=== PATIENT | female | born 1990 | race Caucasian/White ===

== ENCOUNTER 2016-03-24 11:43 | Outpatient (RCR) | payer OTHER ==
[2016-06-09] MEDS ORDERED: PNV91TAB3 PO (09:38)
[2016-06-15] MEDS ORDERED: IBUP-1773 PO (07:40)
[2016-06-15] MEDS ORDERED: HYDR-3729 PO (07:40)
== END 2016-06-22 | disposition home or self-care (01) ==
LOC: LAB 11:43 → EDSTATUS 12:02
PROVIDERS: ATTEND Nurse Practitioner Family
DX: O20.9 Hemorrhage in early pregnancy, unspecified (principal); Z3A.01 Less than 8 weeks gestation of pregnancy
CPT/HCPCS: 36415; 84702

== ENCOUNTER → 2016-05-24 | Outpatient (CLI) | payer OTHER ==
[~2016-05-24] MED LIST: HYDR-3729 PO; IBUP-1773 PO; PNV91TAB3 PO
--- NOTE | 2016-05-24 12:00 | Diagnostic Imaging Report ---
EXAMINATION: OB ultrasound. INDICATION: Threatened . FINDINGS: There is an intrauterine with a gestational sac and yolk sac seen. The mean sac diameter is 21 mm which corresponds to 7 weeks and one day. There is question of a tiny embryo measuring less than 2 mm. No cardiac activity is detected. IMPRESSION: There is a single intrauterine with question of a tiny embryo seen but without cardiac activity. Differential considerations are early normal or embryo demise. Correlate with serial beta-hCG and ultrasound followup in 5-7 days. Report was faxed to office of Dr. Herrera by charlie at 12:00 p.m. Dictated by: Dictated on workstation # [id number]
== END ==
LOC: RAD 09:50
PROVIDERS: ATTEND Obstetrics & Gynecology
DX: O20.0 Threatened abortion (principal)
CPT/HCPCS: 76817

== ENCOUNTER → 2016-05-30 | Outpatient (CLI) | payer OTHER ==
--- NOTE | 2016-05-30 12:59 | Diagnostic Imaging Report ---
INDICATION: Followup pelvic pain, threatened . COMPARISON: 05/24/2016. DISCUSSION: Transvaginal sonographic evaluation of the pelvis was performed. The uterus is normal in echotexture and size. Single intrauterine gestational sac is again visualized. pole appears to be present but no heart activity identified. Mean sac diameter measures 1.99 cm. [place]-rump length measures 0.29 cm which correlates with a gestational age of 6 weeks 0 days by sonographic measurements. Small yolk sac is present. There has not been expected interval growth as compared to prior exam. Findings are suggestive of though not diagnostic for failed . Recommend continued clinical correlation and sonographic followup is indicated. No abnormal adnexal mass or fluid is identified. IMPRESSION: 1. Single intrauterine is again demonstrated. There is a small pole identified, however there is no heart activity present on today's exam. There is a lack of expected interval growth. By standard criteria, findings are suggestive of though not definitive for demise. Recommend continued clinical correlation. Dictated by: Dictated on workstation # [id number]
== END ==
LOC: RAD 11:05
PROVIDERS: ATTEND Obstetrics & Gynecology
DX: O20.0 Threatened abortion (principal)
CPT/HCPCS: 76817

== ENCOUNTER 2016-06-09 09:08 | Outpatient (CLI) | payer OTHER ==
[~2016-06-09] VITALS: Ht 175.3 cm; Wt 120.7 kg
--- OUTSIDE RECORDS SUMMARY | 2016-06-09 09:12 | XMS REPORT ---
Author Author CRISTINAA MCLEOD Organization [facility] Address [address] [place] [address] Care Team Providers Care Hand Inserter Operator Name Role Phone CRISTIANA MCLEOD Unavailable PROBLEMS Type Condition ICD9-CM Code AXH94-OH Code Onset Dates Condition Status SNOMED Code Problem Family history of malignant neoplasm of endometrium Z80.49 Active 415199072885704 Problem Obesity (BMI 35.0-39.9 without comorbidity) E66.01 Active 542137092 Problem Family history of ovarian cancer Z80.41 Active 792209566 Assessment Dental examination Z01.20 Feb, Active 038300661 Problem Family history of heart disease Z82.49 Active 782267269 Problem Family history of hyperlipidemia Z83.49 Active 745495891 Problem Desire for Z31.9 Active 914520338 Problem Anxiety F41.9 Active 05667368 Problem General medical exam Z00.00 Active 476158477 Problem Hirsutism L68.0 Active 154176175 Problem Seasonal allergic rhinitis, unspecified allergic rhinitis trigger J30.2 Active 752897898 Problem Overweight E66.3 Active 565759797 ALLERGIES Substance Reaction Event Type Date Status N.K.D.A. Unknown Non Drug Allergy Feb, Unknown SOCIAL HISTORY No smoking Hx information available PLAN OF CARE VITAL SIGNS Height 70 in 2016-02-26 Heart Rate 80 bpm 2016-02-26 Blood pressure systolic 129 mmHg 2016-02-26 Blood pressure diastolic 85 mmHg 2016-02-26 MEDICATIONS Medication Instructions Dosage Frequency Start Date End Date Duration Status Folic Acid Active Zyrtec Allergy 10 MG Orally Once a day 1 tablet 24h Active Flonase 50 MCG/DOSE Nasally Once a day 1 spray in each nostril 24h Oct, 30 day(s) Active Vitamin D (Ergocalciferol) 47674 UNIT Orally one time weekly 1 capsule Jan, 12 weeks Active Active BusPIRone HCl 10 MG Orally Twice a day 1 tablet 12h Nov, Active RESULTS No Results PROCEDURES Procedure Date Ordered Related Diagnosis Body Site BITEWINGS - FOUR FILMS Feb 26, 2016 PANORAMIC FILM SEE ALSO CODE 25376 Feb 26, 2016 Billing Notes on claim Feb 26, 2016 PROPHYLAXIS - ADULT Feb 26, 2016 [employer] Employee/Board adjustment Feb 26, 2016 IMMUNIZATIONS No Known Immunizations
[2016-06-09] MEDS ORDERED: PNV91TAB3 PO (09:38)
== END 2016-06-09 09:41 ==
LOC: PREOP 09:08
PROVIDERS: ATTEND Obstetrics & Gynecology
DX: Z01.818 Encounter for other preprocedural examination (principal); O02.1 Missed abortion

== ENCOUNTER 2016-06-14 22:51 | Day surgery (SDC) | payer OTHER ==
[~2016-06-14] VITALS: Ht 175.3 cm; Wt 120.7 kg
[~2016-06-14 22:51] MED LIST changes: -HYDR-3729 PO; -IBUP-1773 PO
[2016-06-14] MEDS ORDERED: NS IV 1000 ML 1,000 ML IV ONE (22:52)
--- NOTE | 2016-06-14 23:08 | ED GU-Female ---
General Chief Complaint: -Female Stated Complaint: MISCARRIAGE/HEAVY BLEEDING/LIGHT HEADED Nursing Triage Note: pt reports she began miscarrying on monday. she is scheduled for a d&c billy, but began having increased bleeding tonight with near syncope. Nursing Sepsis Screen: No Definite Risk Source: patient, old records Exam Limitations: no limitations History of Present Illness Time seen by provider: 22:55 Initial Comments This 25-year-old 2 para 0 presents to the emergency room with cramping and severe bleeding. She had an ultrasound performed earlier today demonstrating no viable with complex endometrial contents. She is scheduled for a D&C with Dr. Herrera tomorrow. While in the shower shortly before arrival she developed a constant stream of vaginal bleeding. She became weak, lightheaded, and "he saw spots". The heavy bleeding started around 22: 00. Symptoms of miscarriage started about 4 days ago. She is mildly tachycardic on presentation. Allergies and Home Medications Allergies Coded Allergies: No Known Drug Allergies (Unverified , 06/09/16) Home Medications Pnv95/Ferrous Fumarate/FA 1 Each Tablet, 1 EACH PO DAILY, (Reported) Constitutional: see HPI EENTM: no symptoms reported Respiratory: no symptoms reported Cardiovascular: see HPI Gastrointestinal: nausea Genitourinary: see HPI : Yes Musculoskeletal: no symptoms reported Skin: no symptoms reported Psychiatric/Neurological: No Symptoms Reported Endocrine: No Symptoms Reported Hematologic/Lymphatic: See HPI Past Eorxxjr-Thzkiy-Vyxdhd Hx Patient Social History Recent Foreign Travel: No Contact w/Someone Who Travel: No Recent Infectious Disease Expo: No Recent Hopitalizations: No Immunizations Up To Date Date of Influenza Vaccine: Jan 10, 2016 Seasonal Allergies Seasonal Allergies: No Surgeries HX Surgeries: No Respiratory Hx Respiratory Disorders: No Cardiovascular Hx Cardiac Disorders: No Neurological Hx Neurological Disorders: No Reproductive System : Yes Hx : 2 Hx Para: 0 Genitourinary Hx Genitourinary Disorders: No Gastrointestinal Hx Gastrointestinal Disorders: No Musculoskeletal Hx Musculoskeletal Disorders: No Endocrine Hx Endocrine Disorders: No HEENT HX ENT Disorders: No Cancer Hx Cancer: No Psychosocial Hx Psychiatric Problems: No Integumentary HX Skin/Integumentary Disorder: No Blood Transfusions Hx Blood Disorders: No Physical Exam Vital Signs Vital Sign - Last 12Hours 06/14/16 23:00 Temp 95.2 Pulse 105 Resp 24 B/P (MAP) 109/89 Capillary Refill : Less Than 3 Seconds General Appearance: WD/WN, no apparent distress HEENT: PERRL/EOMI, normal ENT inspection Cardiovascular: no edema, no murmur, tachycardia Respiratory: lungs clear, normal breath sounds, no respiratory distress, no accessory muscle use Gastrointestinal: normal bowel sounds, non tender, soft Extremities: normal inspection, no pedal edema Neurologic/Psychiatric: donor services manager II-XII nml as tested, no motor/sensory deficits, alert, normal mood/affect, oriented x 3 Skin: normal color, warm/dry Focused Exam Lactic Acid Level Progress/Results/Core Measures Results/Orders Lab Results Laboratory Tests Test 06/14/16 23:00 Range/Units White Blood Count 6.7 4.3-11.0 10^3/uL Red Blood Count 4.14 L 4.35-5.85 10^6/uL Hemoglobin 11.2 L 11.5-16.0 G/DL Hematocrit 32 L 35-52 % Mean Corpuscular Volume 78 L 80-99 FL Mean Corpuscular Hemoglobin 27 25-34 PG Mean Corpuscular Hemoglobin Concent 35 32-36 G/DL Red Cell Distribution Width 13.3 10.0-14.5 % Platelet Count 231 130-400 10^3/uL Mean Platelet Volume 9.9 7.4-10.4 FL Neutrophils (%) (Auto) 50 42-75 % Lymphocytes (%) (Auto) 42 12-44 % Monocytes (%) (Auto) 6 0-12 % Eosinophils (%) (Auto) 2 0-10 % Basophils (%) (Auto) 0 0-10 % Neutrophils # (Auto) 3.4 1.8-7.8 X 10^3 Lymphocytes # (Auto) 2.8 1.0-4.0 X 10^3 Monocytes # (Auto) 0.4 0.0-1.0 X 10^3 Eosinophils # (Auto) 0.1 0.0-0.3 10^3/uL Basophils # (Auto) 0.0 0.0-0.1 10^3/uL Prothrombin Time 14.0 12.2-14.7 SEC INR Comment 1.1 0.8-1.4 Activated Partial Thromboplast Time 25 24-35 SEC Sodium Level 138 135-145 MMOL/L Potassium Level 3.3 L 3.6-5.0 MMOL/L Chloride Level 107 98-107 MMOL/L Carbon Dioxide Level 20 L 21-32 MMOL/L Anion Gap 11 5-14 MMOL/L Blood Urea Nitrogen 6 L 7-18 MG/DL Creatinine 0.72 0.60-1.30 MG/DL Estimat Glomerular Filtration Rate > 60 BUN/Creatinine Ratio 8 Glucose Level 133 H 70-105 MG/DL Calcium Level 8.5 8.5-10.1 MG/DL Human Chorionic Gonadotropin, Quant 3059 H <5 MIU/ML My Orders Orders - CHUCK GIRARD MD Basic Metabolic Panel (06/14/16 22:52) Cbc With Automated Diff (06/14/16:52) Hcg,Quantitative (06/14/16:52) Ua Culture If Indicated (06/14/16:52) Saline Lock/Iv-Start (06/14/16:52) Ns Iv 1000 Ml (Sodium Chloride 0.9%) (06/14/16 22:52) Protime With Inr (06/14/16 22:56) Partial Thromboplastin Time (06/14/16 22:56) Red Cells Leukocytes Reduced (06/14/16 23:18) Type And Screen (06/14/16 23:00) Ns W/Kcl 20 Meq/L (Ns Iv W/Kcl 20 Meq/L) (06/15/16 00:42) Medications Given in ED Current Medications Medications Dose Ordered Sig/Cleve Route Start Time Stop Time Status Last Admin Dose Admin Sodium Chloride 1,000 ml @ 0 mls/hr Q0M ONCE IV 06/14/16 22:52 06/14/16 22:54 DC 06/14/16 23:11 1,000 MLS/HR Vital Signs/I&O Vital Sign - Last 12Hours 06/14/16 23:00 Temp 95.2 Pulse 105 Resp 24 B/P (MAP) 109/89 Blood Pressure Mean: 96 Progress Note #1: Time: 23:10 Progress Note Patient seen and examined. Labs ordered. A liter of IV fluids is infusing. Progress Note #2: Progress Note Patient remained stable throughout her ER stay. Standing systolic blood pressure after liter of IV fluids was 106. Patient was feeling better. Case is discussed with Dr. Herrera would like her admitted for observation until her D&C. 2 units of PRBC were crossmatched as a precaution. Diagnostic Imaging Diagonstic Imaging: Ultrasound Plain Films/CT/US/NM/MRI: pelvis Comments Ultrasound report from earlier today was reviewed. See report below: NAME: DIDI ALONSO [facility] REC#: [id number] PT STATUS: REG CLI : 1990 PHYSICIAN: DAVY HERRERA MD ADMIT DATE: 06/14/16/RAD Signed Date of Exam: 06/14/16 US OB TRANSVAGINAL [id number] EXAMINATION: OB ultrasound. INDICATION: Failed . D&C scheduled for tomorrow. FINDINGS: There is a heterogenous lesion in the endometrial cavity with cystic and solid components as seen. Maximum thickness is 3.2 CM. Previously defined yolk sac and embryo based on ultrasound from 05/30/2016 are not seen at this time. The ovaries are obscured by bowel gas. IMPRESSION: Complex cystic and solid heterogenous mass in the endometrial cavity with increased flow likely representing retained products of conception after failed . Gestational trophoblastic disease is considered less likely. Correlate clinically. Message about the findings was left for Dr. Herrera at time of dictation. Dictated by: Dictated on workstation # [id number] Dict: 06/14/16 1438 Trans: 06/14/16 1525 [facility] [id number] Interpreted by: JUAN CHERRY MD Electronically signed by:JUAN CHERRY MD 06/14/16 1527 Departure Communication Time/Spoke to Admitting Phy: 23:44 Communication Case reviewed with Dr. Herrera who would like patient admitted in preparation for D&C in the morning. 2 units of packed red blood cells were ordered for crossmatch. Impression Impression: Primary Impression: Missed Additional Impressions: Acute blood loss anemia Hypokalemia Disposition: ADMITTED INPATIENT Condition: Improved Decision to Admit Reason: Admit from ER (General) Decision to Admit/Date: Jun 14, 2016 Time/Decision to Admit Time: 23:44 Departure-Patient Inst. Referrals: KINGA HARRISON DO (PCP) Primary Care Physician BUSTER BREWER (Family) Primary Care Physician CHUCK GIRARD MD Jun 14, 2016 23:08
[2016-06-14 23:10] LABS: BASOPHILS % (AUTO) 0 % (0-10); EOSINOPHILS # (AUTO) 0.1 10^3/uL (0.0-0.3); EOSINOPHILS % (AUTO) 2 % (0-10); LYMPHOCYTES # (AUTO) 2.8 X 10^3 (1.0-4.0); LYMPHOCYTES % (AUTO) 42 % (12-44); MEAN CORPUSCULAR HEMOGLOBIN 27 PG (25-34); MEAN CORPUSCULAR HGB CONC 35 G/DL (32-36); MEAN CORPUSCULAR VOLUME 78 FL (80-99); MEAN PLATELET VOLUME 9.9 FL (7.4-10.4); MONOCYTES # (AUTO) 0.4 X 10^3 (0.0-1.0); MONOCYTES % (AUTO) 6 % (0-12); NEUTROPHILS # (AUTO) 3.4 X 10^3 (1.8-7.8); NEUTROPHILS % (AUTO) 50 % (42-75); PLATELET COUNT 231 10^3/uL (130-400); RED BLOOD COUNT 4.14 10^6/uL (4.35-5.85); RED CELL DISTRIBUTION WIDTH 13.3 % (10.0-14.5); WHITE BLOOD COUNT 6.7 10^3/uL (4.3-11.0)
[2016-06-14 23:19] LABS: INR 1.1 (0.8-1.4)
[2016-06-14 23:26] LABS: ANION GAP 11 MMOL/L (5-14); BLOOD UREA NITROGEN 6 MG/DL (7-18); BUN/CREATININE RATIO 8; CALCIUM 8.5 MG/DL (8.5-10.1); CARBON DIOXIDE 20 MMOL/L (21-32); CHLORIDE 107 MMOL/L (98-107); CREATININE SERUM 0.72 MG/DL (0.60-1.30); GFR ESTIMATED > 60; GLUCOSE 133 MG/DL (70-105); POTASSIUM 3.3 MMOL/L (3.6-5.0); SODIUM 138 MMOL/L (135-145)
[2016-06-15] MEDS ORDERED: NS W/KCL 20 MEQ/L 1,000 ML IV ONE (00:42)
[2016-06-15 00:50] VITALS: BP 134/78
[2016-06-15] MEDS ORDERED: NS W/KCL 20 MEQ/L 1,000 ML IV SCH (00:50)
[2016-06-15 03:45] VITALS: BP 102/58
[2016-06-15] MEDS ORDERED: fentaNYL INJECTION 100 MCG/2 ML AMP IVP PRN (04:00)
[2016-06-15] MEDS ORDERED: ONDANSETRON 4 MG/2 ML (SDV) Z0FRAN IVP PRN ×2 (04:00→08:15)
[2016-06-15 06:15] VITALS: BP 129/85
[2016-06-15] MEDS ORDERED: CATHETER FLUSH 10 ML SYR IV PRN (06:30)
[2016-06-15] MEDS ORDERED: proPOfol 200 MG/20 ML (DIPRIVAN) VIAL IV ONE (07:28)
[2016-06-15] MEDS ORDERED: fentaNYL INJECTION 100 MCG/2 ML AMP ONE (07:28)
[2016-06-15] MEDS ORDERED: MIDAZOLAM 2 MG/2 ML (VERSED) VIAL ONE (07:28)
--- NOTE | 2016-06-15 07:36 | Progress Note-Pre Operative ---
Pre-Operative Progress Note H&P Reviewed The H&P was reviewed, patient examined and no changes noted. Date H&P Reviewed: Jun 15, 2016 Time H&P Reviewed: 07:30 Pre-Operative Diagnosis: Incomplete DAVY WANG MD Jun 15, 2016 07:36
[2016-06-15] MEDS ORDERED: IBUP-1773 PO (07:40)
[2016-06-15] MEDS ORDERED: HYDR-3729 PO (07:40)
--- NOTE | 2016-06-15 07:41 | Discharge Inst-Women's Service ---
Discharge Inst-Women's Serv Depart Medication/Instructions New, Converted or Re-Newed RX: RX on Chart Final Diagnosis Incomplete , early failure Consults/Follow Up Additional Follow Up: Yes Orders/Referrals July [address] Herrera Activity Activity: Activity as Tolerated Driving Instructions: No Driving for 24 Hours (or while taking narcotic pain medication) NO SMOKING: NO SMOKING Nothing Inside Vagina: No Douching, No [place], No Tampons Diet Discharge Diet: No Restrictions Symptoms to Report to : Bleeding Excessive, Pain Increased, Fever Over 101 Degrees F, Pain/Pressure in Chest, Vaginal Bleeding Increase, Dizziness/Fainting , Nausea/Vomiting, Shortness of Breath For Any Problems or Questions: Contact Your Physician, Go to Emergency Room DAVY HERRERA MD Jun 15, 2016 07:41
--- NOTE | 2016-06-15 07:44 | History & Physical-OB/GYN ---
History of Present Illness History of Present Illness Reason for visit/HPI Corinna is a 25 y/o with incomplete Known well to me after following for early loss She has been attempting expectant management at home but scheduled for D&C tomorrow Had bleeding late last evening and an episode of possibly blacking out in the shower (saw spots, felt dizzy) Feels much better today, bleeding has slowed down considerably US yesterday showed retained POC Understands plan of care for D&C this AM Date of Admission Jun 14, 2016 at 23:47 I consulted on this patient on 06/15/16 07:41 Attending Physician Ben,Brenda Henriquez MD Admitting Physician Debby Gregory DO Consult Allergies and Home Medications Allergies Coded Allergies: No Known Drug Allergies (Unverified , 06/09/16) Home Medications Hydrocodone/Acetaminophen 1 Each Tablet, 1-2 EACH PO Q4H PRN for PAIN, #15 Prescribed by: BRENDA WANG on 06/15/16 0740 Ibuprofen 600 Mg Tablet, 600 MG PO Q6H, #30 Prescribed by: BRENDA WANG on 06/15/16 0740 Pnv95/Ferrous Fumarate/FA 1 Each Tablet, 1 EACH PO DAILY, (Reported) Past Drzmqqn-Zjuaxj-Bvcxuc Hx Patient Social History Marrital Status: Alcohol Use: Denies Use Recreational Drug Use: No Smoking Status: Never a Smoker Recent Foreign Travel: No Contact w/other who traveled: No Recent Hopitalizations: No Recent Infectious Disease Expo: No Immunizations Up To Date Date of Influenza Vaccine: Jan 10, 2016 Seasonal Allergies Seasonal Allergies: No Surgeries HX Surgeries: No Respiratory Hx Respiratory Disorders: No Cardiovascular Hx Cardiovascular Disorders: No Neurological Hx Neurological Disorders: No Reproductive System : Yes Hx : 2 Hx Para: 0 Genitourinary Hx Genitourinary Disorders: No Gastrointestinal Hx Gastrointestinal Disorders: No Musculoskeletal Hx Musculoskeletal Disorders: No Endocrine Hx Endocrine Disorders: No HEENT HX ENT Disorders: No Cancer Hx Cancer: No Psychosocial Hx Psychiatric Problems: No Integumentary HX Skin/Integumentary Disorder: No Blood Transfusions Hx Blood Disorders: No Constitutional: no symptoms reported EENTM: no symptoms reported Respiratory: no symptoms reported Gastrointestinal: no symptoms reported Genitourinary: other (vaginal bleeding) Musculoskeletal: no symptoms reported Skin: no symptoms reported Psychiatric/Neurological: No Symptoms Reported Physical Exam Physical Exam Vital Signs Vital Signs Date Time Temp Pulse Resp B/P (MAP) Pulse Ox O2 Delivery O2 Flow Rate FiO2 06/15/16 06:15 98.5 90 18 129/85 100 Room Air 06/15/16 03:45 98.4 83 18 102/58 100 Room Air 06/15/16 00:50 96.8 96 18 134/78 98 Room Air 06/15/16 00:35 95 18 98 06/14/16 23:00 95.2 105 24 109/89 I & O 06/15/16 07:00 Intake Total 1000 ml Balance 1000 ml Capillary Refill : Less Than 3 Seconds Labs Laboratory Tests 06/14/16 23:00: White Blood Count 6.7, Red Blood Count 4.14L, Hemoglobin 11.2L, Hematocrit 32L, Mean Corpuscular Volume 78L, Mean Corpuscular Hemoglobin 27, Mean Corpuscular Hemoglobin Concent 35, Red Cell Distribution Width 13.3, Platelet Count 231, Mean Platelet Volume 9.9, Neutrophils (%) (Auto) 50, Lymphocytes (%) (Auto) 42, Monocytes (%) (Auto) 6, Eosinophils (%) (Auto) 2, Basophils (%) (Auto) 0, Neutrophils # (Auto) 3.4, Lymphocytes # (Auto) 2.8, Monocytes # (Auto) 0.4, Eosinophils # (Auto) 0.1, Basophils # (Auto) 0.0, Prothrombin Time 14.0, INR Comment 1.1, Activated Partial Thromboplast Time 25, Sodium Level 138, Potassium Level 3.3L, Chloride Level 107, Carbon Dioxide Level 20L, Anion Gap 11 , Blood Urea Nitrogen 6L, Creatinine 0.72, Estimat Glomerular Filtration Rate > 60, BUN/Creatinine Ratio 8, Glucose Level 133H, Calcium Level 8.5, Human Chorionic Gonadotropin, Quant 3059H Radiology Studies see sono dated 06/14 General Appearance: No Apparent Distress Respiratory: No Accessory Muscle Use, No Respiratory Distress Cardiovascular: Regular Rate, Rhythm Abdominal: non tender, soft Gynecology/General: Other (deferred to OR) Assessment/Plan Assessment and Plan 25 y/o here with incomplete Rh+ Recurrent loss To OR for D&C - see H&P from clinic; previously discussed risks/benefits/ alternatives All questions answered Anticipate d/c following case Perioperative doxycycline, SCDs Problems: BRENDA WANG MD Jun 15, 2016 07:44
[2016-06-15] MEDS ORDERED: D5 LR IV SOLUTION 1,000 ML IV SCH (08:08)
[2016-06-15] MEDS ORDERED: ONDANSETRON 4 MG/2 ML (SDV) Z0FRAN ONE (08:13)
[2016-06-15] MEDS ORDERED: SEVOFLURANE (ULTANE) 15 ML INHAL SOLN ONE (08:13)
[2016-06-15] MEDS ORDERED: DEXAMETHASONE PF 10 MG/ML (DECADRON) VIAL ONE (08:13)
[2016-06-15] MEDS ORDERED: LACTATED RINGERS 1,000 ML IV ONE (08:13)
[2016-06-15] MEDS ORDERED: KETOROLAC 30 MG/ML VIAL ONE (08:13)
[2016-06-15] MEDS ORDERED: KETOROLAC 30 MG/ML VIAL IVP ONE (08:15)
[2016-06-15] MEDS ORDERED: DOXYCYCLINE 100 MG (VIBRAMYCIN) TABLET PO NR (08:15)
[2016-06-15] MEDS ORDERED: LACTATED RINGERS 1,000 ML IV PRN (08:33)
[2016-06-15] MEDS ORDERED: morphine INJ 10 MG/ML 1ML (SYR OR VIAL) IV PRN (08:45)
[2016-06-15] MEDS ORDERED: ONDANSETRON 4 MG/2 ML (SDV) Z0FRAN IV PRN (08:45)
[2016-06-15 09:10] VITALS: BP 96/50
--- NOTE | 2016-06-15 09:31 | OB/GYN Operative Report ---
Operative Report Date of Procedure: June 15, 2016 Preoperative Diagnosis: 25 y/o with incomplete (11w4d by menstrual dating), recurrent loss, Rh+ Postoperative Diagnosis: Same Procedure: Suction dilatation and curettage Surgeon: Davy Herrera MD Anesthesia: General Estimated Blood Loss: 50 mL Specimens: Products of conception to pathology fresh for cytogenetic analysis Indications for Procedure: This is a 25 y/o who has been followed for missed . A pole did develop but never had cardiac activity. She elected for expectant management at home but came in with heavy bleeding and was found to have an incomplete . She was counseled on risks, benefits and alternatives to the procedure and elected to proceed. Findings: Normal appearing external genitalia. Products of conception removed consistent 6-7 week gestational age. Procedure: The patient was taken to the operating room with IV fluids running. Sequential compression devices were placed on her bilateral lower extremities. General anesthesia was obtained without difficulty. She was positioned in the dorsal lithotomy position with the use of Yellofin stirrups. She was prepped and draped in the typical sterile fashion. The bladder was drained with a straight in-and-out catheterization. A speculum was placed in the vagina. An Allis was placed on the anterior lip of the cervix. The cervix was dilated with Swann dilators to a level of 21 Swann. An 8mm suction curette was inserted into the uterine cavity and activated; products of conception were noted and the curette was slowly removed while turning it gently both clockwise and counterclockwise. This was repeated until no further products of conception were noted. A medium sharp curette was then introduced into the uterine cavity and the uterine cavity was gently curetted in a clockwise, circumferential fashion until a gritty feeling was noted. All instruments were removed from the uterus. Minimal bleeding was noted. The Allis was removed. All instruments were removed from the vagina at this point. Instrument counts were correct. The patient was awakened from anesthesia without difficulty. She was taken to recovery in stable condition. Complications: None Disposition: Home stable DAVY HERRERA MD Jun 15, 2016 09:31
[2016-06-15 10:20] VITALS: BP 118/72
[2016-06-15] MEDS ORDERED: HYDROcodone/APAP 5 MG/325 MG (LORTAB) TAB PO NR (10:45)
[2016-06-15] MEDS ORDERED: IBUPROFEN 600 MG (MOTRIN) TAB PO NR (10:45)
[2016-06-15 11:15] VITALS: BP 118/72
--- OUTSIDE RECORDS SUMMARY | 2016-06-19 04:08 | XMS REPORT ---
Author Author CRISTIANA MCLEOD Organization [facility] Address [address] [place] [address] Care Team Providers Care Extension Supervisor Name Role Phone CRISTIANA MCLEOD Unavailable PROBLEMS Type Condition ICD9-CM Code JMF00-ID Code Onset Dates Condition Status SNOMED Code Problem Family history of malignant neoplasm of endometrium Z80.49 Active [id number] Problem Obesity (BMI 35.0-39.9 without comorbidity) E66.01 Active 748392773 Problem Family history of ovarian cancer Z80.41 Active 480687295 Assessment Dental examination Z01.20 Feb, Active 734317913 Problem Family history of heart disease Z82.49 Active 787399375 Problem Family history of hyperlipidemia Z83.49 Active 554375035 Problem Desire for Z31.9 Active 430573365 Problem Anxiety F41.9 Active 07384135 Problem General medical exam Z00.00 Active 639507916 Problem Hirsutism L68.0 Active 187241887 Problem Seasonal allergic rhinitis, unspecified allergic rhinitis trigger J30.2 Active 539523129 Problem Overweight E66.3 Active 297646658 ALLERGIES Substance Reaction Event Type Date Status [...] Oct, 30 day(s) Active Vitamin D (Ergocalciferol) 00541 UNIT Orally one time weekly 1 capsule Jan, 12 weeks Active Active BusPIRone HCl 10 MG Orally Twice a day 1 tablet 12h Nov, Active RESULTS No Results PROCEDURES Procedure Date Ordered Related Diagnosis Body Site BITEWINGS - FOUR FILMS Feb 26, 2016 PANORAMIC FILM SEE ALSO CODE 33955 Feb 26, 2016 Billing Notes on claim Feb 26, 2016 PROPHYLAXIS - ADULT Feb 26, 2016 [employer] Employee/Board adjustment Feb 26, 2016 IMMUNIZATIONS No Known Immunizations
--- OUTSIDE RECORDS SUMMARY | 2016-06-19 04:09 | XMS REPORT ---
Author Author DEBORAH HURT Organization [employer] Address Unknown Phone Unavailable Care Team Providers Care Track Oiler Name Role Phone DEBORAH HURT CP Unavailable Allergies No Known Allergies Problems Problem Type Condition Code Onset Dates Condition Status Assessment Obesity (BMI 35.0-39.9 without comorbidity) E66.01 Active Problem Hirsutism L68.0 Active Problem Obesity (BMI 35.0-39.9 without comorbidity) E66.01 Active Problem General medical exam Z00.00 Active Problem Family history of hyperlipidemia Z83.49 Active Problem Family history of heart disease Z82.49 Active Problem Family history of ovarian cancer Z80.41 Active Problem Family history of malignant neoplasm of endometrium Z80.49 Active Medications Medication Code System Code Instructions Start Date End Date Status Dosage Nexplanon [facility] [address]-03 68 MG Subcutaneous not defined Diethylpropion HCl ER [facility] [address]-49 75 MG Orally Once a day Apr 13, 2015 1 [address] [facility] [address]-45 50 MG Orally Twice a day Mar 24, 2015 1 tablet Results No Known Results Summary Purpose [employer] Submission
--- OUTSIDE RECORDS SUMMARY | 2016-06-19 04:09 | XMS REPORT ---
Author Author DEBORAH HURT Organization eClinicalWorks Address Unknown Phone Unavailable Care Team Providers Care Uniform Room Attendant Name Role Phone DEBORAH HURT CP Unavailable Allergies No Known Allergies Problems Problem Type Condition Code Onset Dates Condition Status Assessment Obesity (BMI 35.0-39.9 without comorbidity) E66.01 Active Assessment General medical exam Z00.00 Active Assessment Hirsutism L68.0 Active Assessment Family history of heart disease Z82.49 Active Assessment Family history of hyperlipidemia Z83.49 Active Problem Hirsutism L68.0 Active Problem Obesity (BMI 35.0-39.9 without comorbidity) E66.01 Active Problem General medical exam Z00.00 Active Problem Family history of hyperlipidemia Z83.49 Active Problem Family history of heart disease Z82.49 Active Problem Family history of ovarian cancer Z80.41 Active Problem Family history of malignant neoplasm of endometrium Z80.49 Active Medications No Known Medications Procedures Procedure Coding System Code Date ASSAY THYROID STIM HORMONE CPT-4 83798 Mar 25, 2015 GLYCATED HEMOGLOBIN TEST CPT-4 71249 Mar 25, 2015 ASSAY OF TOTAL TESTOSTERONE CPT-4 94228 Mar 25, 2015 VENIPUNCT, ROUTINE* CPT-4 87504 Mar 25, 2015 COMPLETE CBC W/AUTO DIFF WBC CPT-4 54758 Mar 25, 2015 ASSAY OF INSULIN CPT-4 18387 Mar 25, 2015 COMPREHEN METABOLIC PANEL CPT-4 36207 Mar 25, 2015 LIPID PANEL CPT-4 85174 Mar 25, 2015 Results Name Result Date Reference Range Unit Abnormality Flag ROUTINE VENIPUNCTURE Summary Purpose eClinicalWorks Submission
--- OUTSIDE RECORDS SUMMARY | 2016-06-19 04:09 | XMS REPORT ---
Author Author BUSTER BREWER [facility] Address [address] [place] [address] Care Team Providers Care Steel Heater Name Role Phone BUSTER BREWER Unavailable PROBLEMS Type Condition ICD9-CM Code GPH60-WQ Code Onset Dates Condition Status SNOMED Code Problem Family history of heart disease Z82.49 Active 557817894 Problem Family history of malignant neoplasm of endometrium Z80.49 Active [id number] Problem Family history of hyperlipidemia Z83.49 Active 108280792 Problem Seasonal allergic rhinitis, unspecified allergic rhinitis trigger J30.2 Active 965135532 Problem Overweight E66.3 Active 128163791 Problem Obesity (BMI 35.0-39.9 without comorbidity) E66.01 Active 863286760 Problem Family history of ovarian cancer Z80.41 Active 234554167 Problem General medical exam Z00.00 Active 139876203 Problem Hirsutism L68.0 Active 345607018 ALLERGIES Unknown Allergies SOCIAL HISTORY No smoking Hx information available PLAN OF CARE VITAL SIGNS Height 70 in 2015-12-16 Blood pressure systolic 128 mmHg 2015-12-16 Blood pressure diastolic 80 mmHg 2015-12-16 MEDICATIONS Unknown Medications RESULTS No Results PROCEDURES No Known procedures IMMUNIZATIONS No Known Immunizations
--- OUTSIDE RECORDS SUMMARY | 2016-06-19 04:09 | XMS REPORT ---
Author Author BUSTER BREWER [facility] eClinicalWorks Address Unknown Phone Unavailable Care Team Providers Care Band Tumbler Name Role Phone BUSTER BREWER CP Unavailable Allergies, Adverse Reactions, Alerts Substance Reaction Event Type N.K.D.A. Info Not Available Non Drug Allergy Problems Problem Type Condition Code Onset Dates Condition Status Assessment Seasonal allergic rhinitis, unspecified allergic rhinitis trigger J30.2 Active Problem Family history of hyperlipidemia Z83.49 Active Problem Family history of heart disease Z82.49 Active Assessment Overweight E66.3 Active Problem Overweight E66.3 Active Problem General medical exam Z00.00 Active Problem Seasonal allergic rhinitis, unspecified allergic rhinitis trigger J30.2 Active Problem Family history of ovarian cancer Z80.41 Active Problem Family history of malignant neoplasm of endometrium Z80.49 Active Problem Hirsutism L68.0 Active Problem Obesity (BMI 35.0-39.9 without comorbidity) E66.01 Active Medications Medication Code System Code Instructions Start Date End Date Status Dosage Zyrtec Allergy [facility] [address]-99 10 MG Orally Once a day 1 tablet Flonase NDC 0 50 MCG/DOSE Nasally Once a day Nov 25, 2015 1 spray in each nostril Phentermine HCl [facility] [address]-80 37.5 MG Orally Once a day Nov 25, 2015 Dec 09, 2015 1/2 tablets PredniSONE [facility] [address]-32 10 mg Orally twice a day Nov 25, 2015Nov 1 tablet Procedures Procedure Coding System Code Date Office Visit, Est Pt., Level 4 CPT-4 45753 Nov 25, 2015 Vital Signs Date/Time: Nov 25, 2015 Cardiac Monitoring Heart Rate 76 bpm Weight 246.0 lbs Height 70 in BMI 35.29 Index Blood Pressure Diastolic 78 mmHg Blood Pressure Systolic 128 mmHg Results No Known Results Summary Purpose eClinicalWorks Submission
--- OUTSIDE RECORDS SUMMARY | 2016-06-19 04:09 | XMS REPORT ---
Author Author DIMITRI TAO [facility] eClinicalWorks Address Unknown Phone Unavailable Care Team Providers Care Wave Solder Offbearer Name Role Phone DIMITRI TAO Unavailable Allergies No Known Allergies Problems Problem Type Condition Code Onset Dates Condition Status Problem Hirsutism L68.0 Active Problem Obesity (BMI 35.0-39.9 without comorbidity) E66.01 Active Problem General medical exam Z00.00 Active Problem Family history of hyperlipidemia Z83.49 Active Problem Family history of heart disease Z82.49 Active Problem Family history of ovarian cancer Z80.41 Active Problem Family history of malignant neoplasm of endometrium Z80.49 Active Medications Medication Code System Code Instructions Start Date End Date Status Dosage Imitrex [facility] [address]-59 100 MG Orally Apr 03, 2015 1 tablet at the onset of headache and repeat in 1 hour Results No Known Results Summary Purpose eClinicalWorks Submission
--- OUTSIDE RECORDS SUMMARY | 2016-06-19 04:09 | XMS REPORT ---
Author Author DIMITRI TAO [facility] eClinicalWorks Address Unknown Phone Unavailable Care Team Providers Care Mortgage Consultant Name Role Phone DIMITRI TAO Unavailable Allergies No Known Allergies Problems Problem Type Condition Code Onset Dates Condition Status Assessment Headache R51 Active Medications No Known Medications Procedures Procedure Coding System Code Date THER/PROPH/DIAG INJ, SC/IM CPT-4 28580 Jan 17, 2015 DEXAMETHASONE 20 MG/5 ML (PER 1 MG) CPT-4 J1100 Jan 17, 2015 DEPO MEDROL 40 MG/ML CPT-4 J1030 Jan 17, 2015 Results No Known Results Summary Purpose eClinicalWorks Submission
--- OUTSIDE RECORDS SUMMARY | 2016-06-19 04:09 | XMS REPORT ---
Author Author BUSTER BREWER Organization eClinicalWorks Address Unknown Phone Unavailable Care Team Providers Care Mud Grinder Name Role Phone BUSTER BREWER CP Unavailable Allergies No Known Allergies Problems Problem Type Condition Code Onset Dates Condition Status Problem Family history of hyperlipidemia Z83.49 Active Problem Family history of ovarian cancer Z80.41 Active Problem Family history of malignant neoplasm of endometrium Z80.49 Active Problem Family history of heart disease Z82.49 Active Problem Anxiety F41.9 Active Problem Seasonal allergic rhinitis, unspecified allergic rhinitis trigger J30.2 Active Problem Desire for Z31.9 Active Problem Hirsutism L68.0 Active Problem Obesity (BMI 35.0-39.9 without comorbidity) E66.01 Active Problem Overweight E66.3 Active Problem General medical exam Z00.00 Active Medications Medication Code System Code Instructions Start Date End Date Status Dosage Vitamin D (Ergocalciferol) [facility] [address]-31 85[address] UNIT Orally one time weekly Feb 23, 2016 1 capsule Results No Known Results Summary Purpose eClinicalWorks Submission
--- OUTSIDE RECORDS SUMMARY | 2016-06-19 04:09 | XMS REPORT ---
Author KINGA Ohara eClinicalWorks Address Unknown Phone Unavailable Care Team Providers Care Kettle Skimmer Name Role Phone KINGA HARRISON CP Unavailable Allergies, Adverse Reactions, Alerts Substance Reaction Event Type N.K.D.A. Info Not Available Non Drug Allergy Problems Problem Type Condition Code Onset Dates Condition Status Assessment Left foot pain M79.672 Active Problem Hirsutism L68.0 Active Problem Obesity (BMI 35.0-39.9 without comorbidity) E66.01 Active Problem General medical exam Z00.00 Active Problem Family history of hyperlipidemia Z83.49 Active Problem Family history of heart disease Z82.49 Active Problem Family history of ovarian cancer Z80.41 Active Problem Family history of malignant neoplasm of endometrium Z80.49 Active Medications No Known Medications Procedures Procedure Coding System Code Date Office Visit, Est Pt., Level 3 CPT-4 56799 Nov 16, 2015 X-RAY EXAM OF FOOT CPT-4 85752 Nov 16, 2015 Vital Signs Date/Time: Nov 16, 2015 Cardiac Monitoring Heart Rate 72 bpm Weight 245.0 lbs Height 70 in BMI 35.15 Index Blood Pressure Diastolic 78 mmHg Blood Pressure Systolic 132 mmHg Results No Known Results Summary Purpose eClinicalWorks Submission
--- OUTSIDE RECORDS SUMMARY | 2016-06-19 04:09 | XMS REPORT ---
Author Author DEBORAH HURT Organization eClinicalWorks Address Unknown Phone Unavailable Care Team Providers Care General Office Associate Name Role Phone DEBORAH HURT CP Unavailable [...] endometrium Z80.49 Active Medications No Known Medications Results No Known Results Summary Purpose eClinicalWorks Submission
--- OUTSIDE RECORDS SUMMARY | 2016-06-19 04:09 | XMS REPORT ---
Author Author DEBORAH HURT Organization eClinicalWorks Address Unknown Phone Unavailable Care Team Providers Care Manager Of Development Name Role Phone DEBORAH HURT CP Unavailable [...]
--- OUTSIDE RECORDS SUMMARY | 2016-06-19 04:09 | XMS REPORT ---
Author Author BUSTER BREWER Organization e[employer]Works Address Unknown Phone Unavailable Care Team Providers Care Patrol Agent Name Role Phone BUSTER BREWER CP Unavailable Allergies, Adverse Reactions, Alerts Substance Reaction Event Type N.K.D.A. Info Not Available Non Drug Allergy Problems Problem Type Condition Code Onset Dates Condition Status Assessment Headache R51 Active Medications Medication Code System Code Instructions Start Date End Date Status Dosage Vimovo [facility] [address]-58 500-20 MG Orally Twice a day 1 tablet before meals Nexplanon [facility] [address]-25 68 MG Subcutaneous not defined Promethazine HCl [facility] [address]-52 25 MG Orally every 4 hrs prn Jan 22, 2015 1 tablet as needed Tussionex Pennkinetic ER [facility] [address]-05 10-8 MG/5ML Orally Once a day at hs only Jan 01, 2015 5 ml as needed Procedures Procedure Coding System Code Date TORADOL (IM) 60 MG/2ML (UP TO 15 MG) CPT-4 J1885 Jan 22, 2015 THER/PROPH/DIAG INJ, SC/IM CPT-4 85447 Jan 22, 2015 Office Visit, Est Pt., Level 3 CPT-4 62920 Jan 22, 2015 Vital Signs Date/Time: Jan 22, 2015 Cardiac Monitoring Heart Rate 76 bpm Temperature 98.8 F Height 70 in Blood Pressure Diastolic 84 mmHg Blood Pressure Systolic 122 mmHg Results No Known Results Summary Purpose eClinicalWorks Submission
--- OUTSIDE RECORDS SUMMARY | 2016-06-19 04:09 | XMS REPORT | Continuity of Care Document ---
Author Author [facility] Organization [facility] Address Unknown Phone Unavailable Allergies Active Description Code Type Severity Reaction Onset Reported/Identified Relationship to Patient Clinical Status Yes No Known Drug Allergies [id number] Drug Allergy Unknown N/ A 06/09/2016 Medications Problems Date Dx Coded Attending Type Code Diagnosis Diagnosed By 04/13/2015 DEBORAH HURT COMPUTING MACHINE OPERATOR Ot E66.01 04/13/2015 DEBORAH HURT COMPUTING MACHINE OPERATOR Ot L68.0 04/13/2015 DEBORAH HURT COMPUTING MACHINE OPERATOR Ot Z68.35 05/14/2015 DEBORAH HURT COMPUTING MACHINE OPERATOR Ot E66.01 05/14/2015 DEBORAH HURT COMPUTING MACHINE OPERATOR Ot L68.0 05/14/2015 DEBORAH HURT COMPUTING MACHINE OPERATOR Ot Z68.35 03/24/2016 DEBORAH HURT COMPUTING MACHINE OPERATOR Ot E66.01 MORBID (SEVERE) OBESITY DUE TO EXCESS CA 03/24/2016 DEBORAH HURT COMPUTING MACHINE OPERATOR Ot L68.0 HIRSUTISM 03/24/2016 DEBORAH HURT COMPUTING MACHINE OPERATOR Ot Z68.35 BODY MASS INDEX (BMI) 35.0-35.9, ADULT 05/12/2016 BUSTER BREWER CHARGE ACCOUNT IDENTIFICATION CLERK Ot O20.9 HEMORRHAGE IN EARLY , UNSPECIFI 05/12/2016 BUSTER BREWER CHARGE ACCOUNT IDENTIFICATION CLERK Ot Z3A.01 LESS THAN 8 WEEKS GESTATION OF 05/25/2016 KATHLEEN BOB, DAVY N Ot O20.0 THREATENED 05/26/2016 KATHLEEN BOB, DAVY N Ot O20.0 THREATENED 05/26/2016 KATHLEEN BOB, DAVY N Ot O20.0 THREATENED 06/01/2016 KATHLEEN BOB, DAVY N Ot O20.0 THREATENED 06/02/2016 BUSTER BREWER CHARGE ACCOUNT IDENTIFICATION CLERK Ot O20.9 HEMORRHAGE IN EARLY , UNSPECIFI 06/02/2016 MADL, BUSTER L CHARGE ACCOUNT IDENTIFICATION CLERK Ot Z3A.01 LESS THAN 8 WEEKS GESTATION OF 06/02/2016 KATHLEEN BOB, DAVY N Ot O20.0 THREATENED 06/02/2016 KATHLEEN BOB, DAVY N Ot O20.0 THREATENED 06/02/2016 KATHLEEN BOB, DAVY N Ot O20.0 THREATENED 06/02/2016 DEBORAH HURT COMPUTING MACHINE OPERATOR Ot E66.01 MORBID (SEVERE) OBESITY DUE TO EXCESS CA 06/02/2016 DEBORAH HURT COMPUTING MACHINE OPERATOR Ot L68.0 HIRSUTISM 06/02/2016 DEBORAH HURT COMPUTING MACHINE OPERATOR Ot Z68.35 BODY MASS INDEX (BMI) 35.0-35.9, ADULT 06/02/2016 MADLREEMABUSTER L CHARGE ACCOUNT IDENTIFICATION CLERK Ot O20.9 HEMORRHAGE IN EARLY , UNSPECIFI 06/02/2016 MADL, BUSTER L CHARGE ACCOUNT IDENTIFICATION CLERK Ot Z3A.01 LESS THAN 8 WEEKS GESTATION OF 06/02/2016 DEBORAH HURT COMPUTING MACHINE OPERATOR Ot E66.01 MORBID (SEVERE) OBESITY DUE TO EXCESS CA 06/02/2016 DEBORAH HURT COMPUTING MACHINE OPERATOR Ot L68.0 HIRSUTISM 06/02/2016 DEBORAH HURT COMPUTING MACHINE OPERATOR Ot Z68.35 BODY MASS INDEX (BMI) 35.0-35.9, ADULT 06/06/2016 DEBORAH HURT COMPUTING MACHINE OPERATOR Ot E66.01 MORBID (SEVERE) OBESITY DUE TO EXCESS CA 06/06/2016 DEBORAH HURT COMPUTING MACHINE OPERATOR Ot L68.0 HIRSUTISM 06/06/2016 DEBORAH HURT COMPUTING MACHINE OPERATOR Ot Z68.35 BODY MASS INDEX (BMI) 35.0-35.9, ADULT 06/06/2016 KATHLEEN BOB, DAVY N Ot O20.0 THREATENED 06/06/2016 KATHLEEN BOB, DAVY N Ot O20.0 THREATENED 06/09/2016 KATHLEEN BOB, DAVY N Ot O02.1 MISSED 06/09/2016 KATHLEEN BOB, DAVY N Ot Z01.818 ENCOUNTER FOR OTHER PREPROCEDURAL EXAMIN 06/10/2016 KATHLEEN BOB, DAVY N Ot O02.1 MISSED 06/10/2016 DAVY WANG MD, Ot Z01.818 ENCOUNTER FOR OTHER PREPROCEDURAL EXAMIN 06/14/2016 DAVY WANG MD Ot O02.1 MISSED 06/14/2016 DAVY WANG MD, Ot O02.1 MISSED 06/15/2016 DAVY WANG MD, Ot O02.1 MISSED Procedures Results Test Result Range Serum or plasma choriogonadotropin measurement (units/volume) - 03/24/16 11:51 Serum or plasma choriogonadotropin measurement (units/volume) 14 m[iU]/mL <5 Serum or plasma choriogonadotropin measurement (units/volume) - 03/26/16 08:50 Serum or plasma choriogonadotropin measurement (units/volume) < m[iU]/mL <5 Complete blood count (CBC) with automated white blood cell (WBC) differential - 06/14/16 23:00 Blood leukocytes automated count (number/volume) 6.7 10*3/ uL 4.3-11.0 Blood erythrocytes automated count (number/volume) 4.14 10*6 /uL 4.35-5.85 Venous blood hemoglobin measurement (mass/volume) 11.2 g/dL 11.5-16.0 Blood hematocrit (volume fraction) 32 % 35-52 Automated erythrocyte mean corpuscular volume 78 [foz_us] 80-99 Automated erythrocyte mean corpuscular hemoglobin (mass per erythrocyte) 27 pg 25-34 Automated erythrocyte mean corpuscular hemoglobin concentration measurement ( mass/volume) 35 g/dL 32-36 Automated erythrocyte distribution width ratio 13.3 % 10.0-14.5 Automated blood platelet count (count/volume) 231 10*3/uL 130-400 Automated blood platelet mean volume measurement 9.9 [foz_us ] 7.4-10.4 Automated blood neutrophils/100 leukocytes 50 % 42-75 Automated blood lymphocytes/100 leukocytes 42 % 12-44 Blood monocytes/100 leukocytes 6 % 0-12 Automated blood eosinophils/100 leukocytes 2 % 0-10 Automated blood basophils/100 leukocytes 0 % 0-10 Blood neutrophils automated count (number/volume) 3.4 10*3 1.8-7.8 Blood lymphocytes automated count (number/volume) 2.8 10*3 1.0-4.0 Blood monocytes automated count (number/volume) 0.4 10*3 0.0-1.0 Automated eosinophil count 0.1 10*3/uL 0.0-0.3 Automated blood basophil count (count/volume) 0.0 10*3/uL 0.0-0.1 Blood type T Indirect antibody screen panel - 06/14/16 23:00 ABO+Rh group AP NRG Transfusion band number [id number] NRG Blood group antibody screen NEGATIVE NRG PT panel in platelet poor plasma by coagulation assay - 06/14/16 23:00 Prothrombin time (PT) in platelet poor plasma by coagulation assay 14.0 s 12.2-14.7 INR in platelet poor plasma or blood by coagulation assay 1.1 0.8-1.4 Activated partial thromboplastin time (aPTT) in platelet poor plasma bycoagulation assay - 06/14/16 23:00 Activated partial thromboplastin time (aPTT) in platelet poor plasma bycoagulation assay 25 s 24-35 Whole blood basic metabolic panel - 06/14/16 23:00 Serum or plasma sodium measurement (moles/volume) 138 mmol/ L 135-145 Serum or plasma potassium measurement (moles/volume) 3.3 mmol/L 3.6-5.0 Serum or plasma chloride measurement (moles/volume) 107 mmol /L 98-107 Carbon dioxide 20 mmol/L 21-32 Serum or plasma anion gap determination (moles/volume) 11 mmol/L 5-14 Serum or plasma urea nitrogen measurement (mass/volume) 6 mg /dL 7-18 Serum or plasma creatinine measurement (mass/volume) 0.72 mg /dL 0.60-1.30 Serum or plasma urea nitrogen/creatinine mass ratio 8 NRG Serum or plasma creatinine measurement with calculation of estimated glomerular filtration rate > NRG Serum or plasma glucose measurement (mass/volume) 133 mg/dL 70-105 Serum or plasma calcium measurement (mass/volume) 8.5 mg/dL 8.5-10.1 Serum or plasma choriogonadotropin measurement (units/volume) - 06/14/16 23:00 Serum or plasma choriogonadotropin measurement (units/volume) 3059 m[iU]/mL <5 Methicillin resistant Staphylococcus aureus (MRSA) screening culture - 07:39 Methicillin resistant Staphylococcus aureus (MRSA) screening culture NEG NRG Encounters ACCT No. Visit Date/Time Discharge Status Pt. Type Provider Facility Loc./Unit Complaint [id number] 06/09/2016 09:08:00 2016 09:41:00 DIS Outpatient DAVY WANG MD [facility] PREOP MISSED AB [id number] 06/14/2016 23:47:00 ACT Inpatient DAVY WANG MD [facility] LDRP MISSED SP AB,ACUTE BLOOD LOSS ANEMIA,HYPOKALEMIA [id number] 06/14/2016 11:56:00 ACT Outpatient DAVY WANG MD [facility] RAD MISSED [id number] 05/30/2016 11:05:00 ACT Outpatient DAVY WANG MD [facility] RAD THREATENED [id number] 05/24/2016 09:50:00 ACT Outpatient DAVY WANG MD [facility] RAD THREATENDED [id number] 03/24/2016 11:43:00 ACT Outpatient BUSTER BREWER [facility] LAB BLEEDING IN EARLY [id number] 04/08/2015 10:15:00 ACT Outpatient DEBORAH HURT APRN [facility] RAD HIRSUTISM
--- OUTSIDE RECORDS SUMMARY | 2016-06-19 04:09 | XMS REPORT ---
Author Author DEBORAH HURT Organization eClinicalWorks Address Unknown Phone Unavailable Care Team Providers Care Tool Analyst Name Role Phone DEBORAH HURT CP Unavailable Allergies, Adverse Reactions, Alerts Substance [...] Start Date End Date Status Dosage Nexplanon [facility] [address]-64 68 MG Subcutaneous not defined Spironolactone [facility] [address]-12 50 MG Orally Twice a day Mar 24, 2015 1 tablet Vimovo [facility] [address]-05 500-20 MG Orally Twice a day 1 tablet before meals Procedures Procedure Coding System Code Date Office Visit, Est Pt., Level 3 CPT-4 99828 Apr 02, 2015 Vital Signs Date/Time: Apr 02, 2015 Temperature 97.9 F Weight 244.8 lbs Height 70 in BMI 35.12 Index Blood Pressure Diastolic 80 mmHg Blood Pressure Systolic 132 mmHg Cardiac Monitoring Heart Rate 74 bpm Results No Known Results Summary Purpose eClinicalWorks Submission
--- OUTSIDE RECORDS SUMMARY | 2016-06-19 04:09 | XMS REPORT ---
Author Author DIMITRI TAO [facility] eClinicalWorks Address Unknown Phone Unavailable Care Team Providers Care Plug Stitcher Name Role Phone DIMITRI TAO Unavailable Allergies No Known Allergies Problems Problem Type Condition Code Onset Dates Condition Status Assessment Headache R51 Active Problem Hirsutism L68.0 Active Problem Obesity [...] System Code Date THER/PROPH/DIAG INJ, SC/IM CPT-4 87116 Apr 03, 2015 DEXAMETHASONE 4MG/ML (PER 1 MG) CPT-4 J1100 Apr 03, 2015 ZOFRAN (IM) 2 MG/ML (PER 1 MG) 40 MG/20 ML CPT-4 J2405 Apr 03, 2015 Results No Known Results Summary Purpose eClinicalWorks Submission
--- OUTSIDE RECORDS SUMMARY | 2016-06-19 04:10 | XMS REPORT ---
Author Author BUSTER BREWER [facility] eClinicalWorks Address Unknown Phone Unavailable Care Team Providers Care Golf Technician Name Role Phone BUSTER BREWER CP Unavailable Allergies, Adverse Reactions, Alerts Substance Reaction Event Type N.K.D.A. Info Not Available Non Drug Allergy Problems Problem Type Condition Code Onset Dates Condition Status Problem Family history of hyperlipidemia Z83.49 Active Problem Family history of ovarian cancer Z80.41 Active Problem Family history of malignant neoplasm of endometrium Z80.49 Active Problem Anxiety F41.9 Active Problem Seasonal allergic rhinitis, unspecified allergic rhinitis trigger J30.2 Active Problem Desire for Z31.9 Active Problem Hirsutism L68.0 Active Problem Obesity (BMI 35.0-39.9 without comorbidity) E66.01 Active Problem Overweight E66.3 Active Problem General medical exam Z00.00 Active Assessment Anxiety F41.9 Active Assessment General medical exam Z00.00 Active Assessment Desire for Z31.9 Active Problem Family history of heart disease Z82.49 Active Medications Medication Code System Code Instructions Start Date End Date Status D[place] [address]-06 10 MG Orally Once a day 1 tablet BusPIRone HCl [facility] [address]-55 10 MG Orally Twice a day Dec 18, 2015 1 tablet Flonase NDC 0 50 MCG/DOSE Nasally Once a day Nov 25, 2015 1 spray in each nostril Procedures Procedure Coding System Code Date Office Visit, Est Pt., Level 4 CPT-4 90339 Feb 17, 2016 GONADOTROPIN (FSH) CPT-4 67166 Feb 17, 2016 GONADOTROPIN (LH) CPT-4 62271 Feb 17, 2016 ASSAY OF ESTRADIOL CPT-4 35505 Feb 17, 2016 ASSAY OF VITAMIN D CPT-4 41920 Feb 17, 2016 BLOOD FOLIC ACID SERUM CPT-4 85457 Feb 17, 2016 VENIPUNCT, ROUTINE* CPT-4 85853 Feb 17, 2016 ASSAY THYROID STIM HORMONE CPT-4 75855 Feb 17, 2016 COMPREHEN METABOLIC PANEL CPT-4 83906 Feb 17, 2016 COMPLETE CBC W/AUTO DIFF WBC CPT-4 19526 Feb 17, 2016 ASSAY OF PROGESTERONE CPT-4 47597 Feb 17, 2016 Vital Signs Date/Time: Feb 17, 2016 Cardiac Monitoring Heart Rate 90 bpm Weight 255 lbs Height 70 in BMI 36.58 Index Blood Pressure Diastolic 80 mmHg Blood Pressure Systolic 110 mmHg Results Name Result Date Reference Range Unit Abnormality Flag PROGESTERONE ----Progesterone 0.1 10175333 ng/mL ESTRADIOL ----Estradiol 35.0 83938579 pg/mL ROUTINE VENIPUNCTURE LH ----LH 7.7 14610503 mIU/mL VITAMIN D, 25-H ----Vitamin D, 25-Hydroxy 18.0 21034908 30.0-100.0 ng/mL L FSH, SERUM ----FSH 8.1 79266465 mIU/mL CBC ----WBC 5.8 85998755 3.4-10.8 x10E3/uL ----RBC 4.82 43284727 3.77-5.28 x10E6/uL ----Hemoglobin 12.9 22037641 11.1-15.9 g/dL ----RDW 13.6 81826843 12.3-15.4 % ----Platelets 317 07606299 150-379 x10E3/uL ----Baso (Absolute) 0.0 02525136 0.0-0.2 x10E3/uL ----Eos (Absolute) 0.1 90123750 0.0-0.4 x10E3/uL ----Hematocrit 38.4 93584502 34.0-46.6 % ----Monocytes(Absolute) 0.4 26729966 0.1-0.9 x10E3/uL ----MCV 80 13428331 79-97 fL ----Lymphs (Absolute) 2.2 78502142 0.7-3.1 x10E3/uL ----MCH 26.8 28309880 26.6-33.0 pg ----Neutrophils (Absolute) 3.1 19815337 1.4-7.0 x10E3/uL ----MCHC 33.6 98967122 31.5-35.7 g/dL ----Neutrophils 53 93524871 % ----Immature Granulocytes 0 58785704 % ----Lymphs 38 98823001 % ----Immature Grans (Abs) 0.0 56782667 0.0-0.1 x10E3/uL ----Monocytes 7 84346760 % ----Eos 1 15689366 % ----Basos 1 69394526 % FOLATE (FOLIC ACID) ----Folate (Folic Acid), Serum >20.0 82969703 >3.0 ng/mL CMP ----BUN/Creatinine Ratio 13 20160217 8-20 ----eGFR If Africn Am 145 75758718 >59 mL/min/1.73 ----eGFR If NonAfricn Am 126 74968477 >59 mL/min/1.73 ----Creatinine, Serum 0.62 12976643 0.57-1.00 mg/dL ----Chloride, Serum 99 20160217 97-106 mmol/L ----Potassium, Serum 4.4 20160217 3.5-5.2 mmol/L ----Sodium, Serum 140 33582092 136-144 mmol/L ----Alkaline Phosphatase, S 53 20160217 39-117 IU/L ----BUN 8 20160217 6-20 mg/dL ----Bilirubin, Total 0.4 20160217 0.0-1.2 mg/dL ----Glucose, Serum 89 61587403 65-99 mg/dL ----ALT (SGPT) 16 20160217 0-32 IU/L ----AST (SGOT) 17 20160217 0-40 IU/L ----Globulin, Total 2.9 29239478 1.5-4.5 g/dL ----A/G Ratio 1.6 20160217 1.1-2.5 ----Protein, Total, Serum 7.5 57595425 6.0-8.5 g/dL ----Albumin, Serum 4.6 20160217 3.5-5.5 g/dL ----Carbon Dioxide, Total 26 20160217 18-29 mmol/L ----Calcium, Serum 9.6 49395889 8.7-10.2 mg/dL TSH ----TSH 1.870 97672509 0.450-4.500 uIU/mL Summary Purpose eClinicalWorks Submission
--- OUTSIDE RECORDS SUMMARY | 2016-06-19 04:10 | XMS REPORT ---
Author Author BUSTER BREWER [facility] Address [address] [place] [address] Care Team Providers Care Career Guidance Counselor Name Role Phone BUSTER BREWER Unavailable PROBLEMS Type Condition ICD9-CM Code PMS03-GU Code Onset Dates Condition Status SNOMED Code Problem Family history of heart disease Z82.49 Active 424844866 Problem Family history of malignant neoplasm of endometrium Z80.49 Active 388520317177291 Problem Family history of hyperlipidemia Z83.49 Active 140700072 Problem Seasonal allergic rhinitis, unspecified allergic rhinitis trigger J30.2 Active 836105890 Problem Overweight E66.3 Active 411607948 Problem Obesity (BMI 35.0-39.9 without comorbidity) E66.01 Active 263864451 Problem Family history of ovarian cancer Z80.41 Active 059752699 Problem General medical exam Z00.00 Active 725862370 Problem Hirsutism L68.0 Active 710152686 ALLERGIES Unknown Allergies SOCIAL HISTORY No smoking Hx information available PLAN OF CARE VITAL SIGNS MEDICATIONS Medication Instructions Dosage Frequency Start Date End Date Duration Status Phentermine HCl 37.5 MG Orally Once a day 1 tablet 24h Oct, Active RESULTS No Results PROCEDURES No Known procedures IMMUNIZATIONS No Known Immunizations
--- OUTSIDE RECORDS SUMMARY | 2016-06-19 04:10 | XMS REPORT ---
Author Author DEBORAH HURT Organization eClinicalWorks Address Unknown Phone Unavailable Care Team Providers Care Senior Pl Sql Developer Name Role Phone DEBORAH HURT CP Unavailable Allergies, Adverse Reactions, Alerts Substance Reaction Event Type N.K.D.A. Info Not Available Non Drug Allergy Problems Problem Type Condition Code Onset Dates Condition Status Assessment Obesity (BMI 35.0-39.9 without comorbidity) E66.01 Active Assessment General medical exam Z00.00 Active Assessment Hirsutism L68.0 Active Problem Hirsutism L68.0 Active Problem Obesity (BMI 35.0-39.9 without comorbidity) E66.01 Active Problem General medical exam Z00.00 Active Problem Family history of hyperlipidemia Z83.49 Active Problem Family history of heart disease Z82.49 Active Problem Family history of ovarian cancer Z80.41 Active Problem Family history of malignant neoplasm of endometrium Z80.49 Active Assessment Family history of heart disease Z82.49 Active Assessment Family history of hyperlipidemia Z83.49 Active Assessment Family history of malignant neoplasm of endometrium Z80.49 Active Assessment Family history of ovarian cancer Z80.41 Active Medications Medication Code System Code Instructions Start Date End Date Status Dosage Spironolactone [facility] [address]-90 50 MG Orally Twice a day Mar 24, 2015 1 tablet Vimovo [facility] [address]-26 500-20 MG Orally Twice a day 1 tablet before meals Nexplanon [facility] [address]-55 68 MG Subcutaneous not defined Procedures Procedure Coding System Code Date Office Visit, Est Pt., Level 3 CPT-4 32447 Mar 24, 2015 Vital Signs Date/Time: Mar 24, 2015 Temperature 97.5 F Weight 240.0 lbs Height 70 in BMI 34.43 Index Blood Pressure Diastolic 80 mmHg Blood Pressure Systolic 132 mmHg Cardiac Monitoring Heart Rate 72 bpm Results No Known Results Summary Purpose eClinicalWorks Submission
--- OUTSIDE RECORDS SUMMARY | 2016-06-19 04:10 | XMS REPORT ---
Author Author DIMITRI TAO Organization eClinicalWorks Address Unknown Phone Unavailable Care Team Providers Care [employer] Professional Name Role Phone DIMITRI TAO Unavailable Allergies No Known Allergies Problems Problem Type Condition Code Onset Dates Condition Status Assessment Headache R51 Active Medications Medication Code System Code Instructions Start Date End Date Status Dosage Ultram [facility] [address]-31 50 MG Orally every4- 6 hrs prn headache Jan 23, 2015 1 tablet as needed Procedures Procedure Coding System Code Date THER/PROPH/DIAG INJ, SC/IM CPT-4 22721 Jan 23, 2015 DEXAMETHASONE 20 MG/5 ML (PER 1 MG) CPT-4 J1100 Jan 23, 2015 DEPO MEDROL 40 MG/ML CPT-4 J1030 Jan 23, 2015 Results No Known Results Summary Purpose eClinicalWorks Submission
--- OUTSIDE RECORDS SUMMARY | 2016-06-19 04:10 | XMS REPORT ---
Author Author BUSTER BREWER [facility] eClinicalWorks Address Unknown Phone Unavailable Care Team Providers Care Van Owner Operator Name Role Phone BUSTER BREWER CP Unavailable Allergies, Adverse Reactions, Alerts Substance Reaction Event Type N.K.D.A. Info Not Available Non Drug Allergy Problems Problem Type Condition Code Onset Dates Condition Status Assessment Acute upper respiratory infection, unspecified J06.9 Active Assessment Acute pansinusitis, unspecified J01.40 Active Medications Medication Code System Code Instructions Start Date End Date Status Dosage Tussionex Pennkinetic ER [facility] [address]-18 10-8 MG/5ML Orally Once a day at hs only Jan 01, 2015 5 ml as needed Nexplanon [facility] [address]-43 68 MG Subcutaneous not defined Tessalon Perles [facility] [address]-30 100 MG Orally Three times a day Jan 01, 2015 Jan 15, 2015 1 capsule as needed Azithromycin [facility] [address]-88 250 MG Orally Once a day Jan 01, 2015 Jan 08, 2015 2 tablets on the first day, then 1 tablet daily for 6 days Vimovo [facility] [address]-40 500-20 MG Orally Twice a day 1 tablet before meals Procedures Procedure Coding System Code Date Office Visit, Est Pt., Level 3 CPT-4 18880 Jan 01, 2015 Vital Signs Date/Time: Jan 01, 2015 Blood Pressure Systolic 118 mmHg Cardiac Monitoring Heart Rate 74 bpm Temperature 97.3 F Blood Pressure Diastolic 78 mmHg Results No Known Results Summary Purpose eClinicalWorks Submission
--- OUTSIDE RECORDS SUMMARY | 2016-06-19 04:10 | XMS REPORT ---
Author Author BUSTER BREWER Organization eClinical[employer] Address Unknown Phone Unavailable Care Team Providers Care Appliance Sales Associate Name Role Phone BUSTER BREWER CP Unavailable Allergies, Adverse Reactions, Alerts Substance Reaction Event Type N.K.D.A. Info Not Available Non Drug Allergy Problems Problem Type Condition ICD-9 Code Onset Dates Condition Status Assessment Cellulitis 682.9 Active Medications Medication Code System Code Instructions Start Date End Date Status Dosage Nexplanon [facility][NOTE 3] [address]-93 68 MG Subcutaneous not defined Naproxen [facility][NOTE 3] [address]-29 500 MG Orally every 12 hrs 1 tablet as needed Bactrim DS [facility][NOTE 3] [address]-07 800-160 MG Orally 2 times a day Dec 02, 2014 Dec 09, 2014 1 tablet Procedures Procedure Coding System Code Date Office Visit, New Pt., Level 2 CPT-4 01550 Dec 02, 2014 Vital Signs Date/Time: Dec 02, 2014 Blood Pressure Systolic 120 mmHg Cardiac Monitoring Heart Rate 70 bpm Temperature 97.8 F Blood Pressure Diastolic 82 mmHg Results No Known Results Summary Purpose eClinicalWorks Submission
--- OUTSIDE RECORDS SUMMARY | 2016-06-19 04:10 | XMS REPORT ---
Author Author BUSTER BREWER [facility] Address [address] [place] [address] Care Team Providers Care Contracts Manager Name Role Phone BUSTER BREWER Unavailable PROBLEMS Type Condition ICD9-CM Code UWH16-BC Code Onset Dates Condition Status SNOMED Code Problem Family history of heart disease Z82.49 Active 874639505 Problem Family history of malignant neoplasm of endometrium Z80.49 Active 200505977227180 Problem Family history of hyperlipidemia Z83.49 Active 795576553 Problem Seasonal allergic rhinitis, unspecified allergic rhinitis trigger J30.2 Active 110918294 Problem Overweight E66.3 Active 135316476 Problem Obesity (BMI 35.0-39.9 without comorbidity) E66.01 Active 376597663 Problem Family history of ovarian cancer Z80.41 Active 108285853 Problem General medical exam Z00.00 Active 005300546 Problem Hirsutism L68.0 Active 760180254 ALLERGIES Unknown Allergies SOCIAL HISTORY No smoking Hx information available PLAN OF CARE VITAL SIGNS MEDICATIONS Medication Instructions Dosage Frequency Start Date End Date Duration Status BusPIRone HCl 10 MG Orally Twice a day 1 tablet 12h 23 Nov, 2015 Active RESULTS No Results PROCEDURES No Known procedures IMMUNIZATIONS No Known Immunizations
--- OUTSIDE RECORDS SUMMARY | 2016-06-19 04:10 | XMS REPORT ---
Author Author BUSTER BREWER [facility] eClinicalWorks Address Unknown Phone Unavailable Care Team Providers Care Fax Machine Repairer Name Role Phone BUSTER BREWER CP Unavailable Allergies No Known Allergies Problems Problem Type Condition Code Onset Dates Condition Status Assessment Encounter for immunization Z23 Active Problem Family history of hyperlipidemia Z83.49 Active Problem Family history of heart disease Z82.49 Active Problem Overweight E66.3 Active Problem General medical exam Z00.00 Active Problem Seasonal allergic rhinitis, unspecified allergic rhinitis trigger J30.2 Active Problem Family history of ovarian cancer Z80.41 Active Problem Family history of malignant neoplasm of endometrium Z80.49 Active Problem Hirsutism L68.0 Active Problem Obesity (BMI 35.0-39.9 without comorbidity) E66.01 Active Medications No Known Medications Procedures Procedure Coding System Code Date SINGLE IMMUNIZATION ADMIN CPT-4 04434 Jan 29, 2016 FLUARIX QUAD P-FREE 3 AND UP .50 2015 CPT-4 89494 Jan 29, 2016 Results No Known Results Immunizations Vaccine Administration Date FLUARIX QUAD P-FREE 3 AND UP .50 2015Jan 29, 2016 Summary Purpose eClinicalWorks Submission
--- OUTSIDE RECORDS SUMMARY | 2016-06-19 08:47 | XMS REPORT | Continuity of Care Document ---
Author Author [facility] Organization [facility] Address Unknown Phone Unavailable Allergies Active Description Code Type Severity Reaction Onset Reported/Identified Relationship to Patient Clinical Status Yes No Known Drug Allergies [id number] Drug Allergy Unknown N/ A 06/09/2016 Medications Problems Date Dx Coded Attending Type Code Diagnosis Diagnosed By 04/13/2015 DEBORAH HURT COMPUTER SYSTEMS SOFTWARE ARCHITECT Ot E66.01 04/13/2015 DEBORAH HURT COMPUTER SYSTEMS SOFTWARE ARCHITECT Ot L68.0 04/13/2015 DEBORAH HURT COMPUTER SYSTEMS SOFTWARE ARCHITECT Ot Z68.35 05/14/2015 DEBORAH HURT COMPUTER SYSTEMS SOFTWARE ARCHITECT Ot E66.01 05/14/2015 DEBORAH HURT COMPUTER SYSTEMS SOFTWARE ARCHITECT Ot L68.0 05/14/2015 DEBORAH HURT COMPUTER SYSTEMS SOFTWARE ARCHITECT Ot Z68.35 03/24/2016 DEBORAH HURT COMPUTER SYSTEMS SOFTWARE ARCHITECT Ot E66.01 MORBID (SEVERE) OBESITY DUE TO EXCESS CA 03/24/2016 DEBORAH HURT COMPUTER SYSTEMS SOFTWARE ARCHITECT Ot L68.0 HIRSUTISM 03/24/2016 DEBORAH HURT COMPUTER SYSTEMS SOFTWARE ARCHITECT Ot Z68.35 BODY MASS INDEX (BMI) 35.0-35.9, ADULT 05/12/2016 BUSTER BREWER SHAVING MACHINE OPERATOR Ot O20.9 HEMORRHAGE IN EARLY , UNSPECIFI 05/12/2016 BUSTER BREWER SHAVING MACHINE OPERATOR Ot Z3A.01 LESS THAN 8 WEEKS GESTATION OF 05/25/2016 KATHLEEN BOB, DAVY N Ot O20.0 THREATENED 05/26/2016 KATHLEEN BOB, DAVY N Ot O20.0 THREATENED 05/26/2016 KATHLEEN BOB, DAVY N Ot O20.0 THREATENED 06/01/2016 KATHLEEN BOB, DAVY N Ot O20.0 THREATENED 06/02/2016 BUSTER BREWER SHAVING MACHINE OPERATOR Ot O20.9 HEMORRHAGE IN EARLY , UNSPECIFI 06/02/2016 MADL, BUSTER L SHAVING MACHINE OPERATOR Ot Z3A.01 LESS THAN 8 WEEKS GESTATION OF 06/02/2016 KATHLEEN BOB, DAVY N Ot O20.0 THREATENED 06/02/2016 KATHLEEN BOB, DAVY N Ot O20.0 THREATENED 06/02/2016 KATHLEEN BOB, DAVY N Ot O20.0 THREATENED 06/02/2016 DEBORAH HURT COMPUTER SYSTEMS SOFTWARE ARCHITECT Ot E66.01 MORBID (SEVERE) OBESITY DUE TO EXCESS CA 06/02/2016 DEBORAH HURT COMPUTER SYSTEMS SOFTWARE ARCHITECT Ot L68.0 HIRSUTISM 06/02/2016 DEBORAH HURT COMPUTER SYSTEMS SOFTWARE ARCHITECT Ot Z68.35 BODY MASS INDEX (BMI) 35.0-35.9, ADULT 06/02/2016 MADLREEMABUSTER L SHAVING MACHINE OPERATOR Ot O20.9 HEMORRHAGE IN EARLY , UNSPECIFI 06/02/2016 MADL, BUSTER L SHAVING MACHINE OPERATOR Ot Z3A.01 LESS THAN 8 WEEKS GESTATION OF 06/02/2016 DEBORAH HURT COMPUTER SYSTEMS SOFTWARE ARCHITECT Ot E66.01 MORBID (SEVERE) OBESITY DUE TO EXCESS CA 06/02/2016 DEBORAH HURT COMPUTER SYSTEMS SOFTWARE ARCHITECT Ot L68.0 HIRSUTISM 06/02/2016 DEBORAH HURT COMPUTER SYSTEMS SOFTWARE ARCHITECT Ot Z68.35 BODY MASS INDEX (BMI) 35.0-35.9, ADULT 06/06/2016 DEBORAH HURT COMPUTER SYSTEMS SOFTWARE ARCHITECT Ot E66.01 MORBID (SEVERE) OBESITY DUE TO EXCESS CA 06/06/2016 DEBORAH HURT COMPUTER SYSTEMS SOFTWARE ARCHITECT Ot L68.0 HIRSUTISM 06/06/2016 DEBORAH HURT COMPUTER SYSTEMS SOFTWARE ARCHITECT Ot Z68.35 BODY MASS INDEX (BMI) 35.0-35.9, [...] ABO+Rh group AP NRG Transfusion band number [id number] NRG Blood group antibody screen NEGATIVE NRG [...] Status Pt. Type Provider Facility Loc./Unit Complaint [id number] 06/09/2016 09:08:00 2016 09:41:00 DIS Outpatient DAVY WANG MD [facility] PREOP MISSED AB [id number] 06/14/2016 23:47:00 ACT Inpatient DAVY WANG MD [facility] LDRP MISSED SP AB,ACUTE BLOOD LOSS ANEMIA,HYPOKALEMIA [id number] 06/14/2016 11:56:00 ACT Outpatient DAVY WANG MD [facility] RAD MISSED [id number] 05/30/2016 11:05:00 ACT Outpatient DAVY WANG MD [facility] RAD THREATENED [id number] 05/24/2016 09:50:00 ACT Outpatient DAVY WANG MD [facility] RAD THREATENDED [id number] 03/24/2016 11:43:00 ACT Outpatient BUSTER BREWER [facility] LAB BLEEDING IN EARLY [id number] 04/08/2015 10:15:00 ACT Outpatient DEBORAH HURT APRN [facility] RAD HIRSUTISM
== END 2016-06-15 11:20 | disposition home or self-care (01) ==
LOC: DELPENDDIS → EDUNIT# 22:51 → ER 22:52 → SDC 23:47 → UNDOADMOB 23:47 → LDRP 23:47 → INTOOBSV 23:47 → CMPBEDREQ 06-15 03:40 → SDC 06-15 11:20 → UNDODISOB 06-15 11:20
PROVIDERS: ATTEND Obstetrics & Gynecology
DX: O03.1 Delayed or excessive hemorrhage following incomplete spontaneous abortion (principal); D62 Acute posthemorrhagic anemia; E87.6 Hypokalemia; N96 Recurrent pregnancy loss; Z3A.11 11 weeks gestation of pregnancy
CPT/HCPCS: 36415; 80048; 84702; 85025; 85610; 85730; 86850; 86900; 86901; 86920; 87081; 88305; 96360; 96375

== ENCOUNTER → 2016-06-14 | Outpatient (CLI) | payer OTHER ==
--- NOTE | 2016-06-14 14:53 | Diagnostic Imaging Report ---
EXAMINATION: OB ultrasound. INDICATION: Failed . D&C scheduled for tomorrow. FINDINGS: There is a heterogenous lesion in the endometrial cavity with cystic and solid components as seen. Maximum thickness is 3.2 CM. Previously defined yolk sac and embryo based on ultrasound from 05/30/2016 are not seen at this time. The ovaries are obscured by bowel gas. IMPRESSION: Complex cystic and solid heterogenous mass in the endometrial cavity with increased flow likely representing retained products of conception after failed . Gestational trophoblastic disease is considered less likely. Correlate clinically. Message about the findings was left for Dr. Herrera at time of dictation. Dictated by: Dictated on workstation # [id number]
== END ==
LOC: RAD 11:56
PROVIDERS: ATTEND Obstetrics & Gynecology
DX: O02.1 Missed abortion (principal)
CPT/HCPCS: 76817

== ENCOUNTER → 2016-08-25 | Outpatient (CLI) | payer OTHER ==
[~2016-08-25] MED LIST changes: +HYDR-3729 PO; +IBUP-1773 PO
--- NOTE | 2016-08-25 20:22 | Diagnostic Imaging Report ---
EXAMINATION: Left breast ultrasound. INDICATION: Left breast lump at 2:00, 4-5 cm from the nipple. FINDINGS: The area of lump and surrounding lesion in the breast was scanned with no underlying abnormality seen. IMPRESSION: Negative study. Clinical followup for the palpable abnormalities recommended. ACR BI-RADS Category 1: Negative. Result letter will be mailed to the patient. Note: At least 10% of breast cancer is not imaged by mammography. Dictated by: Dictated on workstation # [id number]
== END ==
LOC: RAD 09:08
PROVIDERS: ATTEND Obstetrics & Gynecology
DX: N60.02 Solitary cyst of left breast (principal)
CPT/HCPCS: 76642

== ENCOUNTER → 2017-02-25 | Outpatient (CLI) | payer OTHER | LOC: LAB 12:18 | PROVIDERS: ATTEND Obstetrics & Gynecology | DX: Z36.89 Encounter for other specified antenatal screening (principal) | CPT/HCPCS: 36415; 84702 ==

== ENCOUNTER → 2017-06-09 | Outpatient (CLI) | payer OTHER ==
--- NOTE | 2017-06-09 15:41 | Diagnostic Imaging Report ---
INDICATION: survey TECHNIQUE: Multiple real-time grayscale images were obtained over the gravid uterus. COMPARISON: None FINDINGS: A single live intrauterine fetus is seen measuring 20 weeks, 6 days in size by composite measurements. The fetus is in cephalic presentation. Amniotic fluid is qualitatively normal. Placenta is grade 1 with no evidence of previa. The heart rate was 152 beats per minute. survey showed no detectable abnormalities although cord insertion and spine and four-chamber heart views were not well-seen due to position. Biometrical measurements are as follows: Biparietal 4.8 cm, age 20 weeks 5 days. Head circumference 18.1 cm, age 20 weeks 4 days. Abdominal circumference 15.9 cm, age 21 weeks 0 days. Femur length 3.5 cm, age 21 weeks 0 days. Sonographic estimate age: 20 weeks 6 days. Sonographic estimated date of delivery: 10/21/17. Estimated Weight: 385 gm (+/- 56 gm). LMP percentile: 90%. heart rate: 152 beats per minute. number: 1 of 1. IMPRESSION: Single live intrauterine fetus measuring 20 weeks 6 days in size, as described above. There were no detectable abnormalities. There was some limitation on the survey, consider limited followup, as clinically warranted. Dictated by: Dictated on workstation # [id number]
== END ==
LOC: RAD 14:11
PROVIDERS: ATTEND Obstetrics & Gynecology
DX: Z36.89 Encounter for other specified antenatal screening (principal); Z3A.20 20 weeks gestation of pregnancy
CPT/HCPCS: 76805

== ENCOUNTER 2017-10-11 17:37 | Outpatient (CLI) | payer OTHER ==
[~2017-10-11] VITALS: Ht 177.8 cm; Wt 136.5 kg
[2017-10-11] MEDS ORDERED: PNV11TAB5 PO (17:55)
[2017-10-11] MEDS ORDERED: ASPI-983 PO (17:55)
[2017-10-11 18:10] VITALS: BP 120/70
[2017-10-11 18:31] LABS: BASOPHILS % (AUTO) 0 % (0-10); EOSINOPHILS % (AUTO) 0 % (0-10); HEMATOCRIT 31 % (35-52); HEMOGLOBIN 10.2 G/DL (11.5-16.0); LYMPHOCYTES # (AUTO) 1.5 X 10^3 (1.0-4.0); LYMPHOCYTES % (AUTO) 18 % (12-44); MEAN CORPUSCULAR HEMOGLOBIN 25 PG (25-34); MEAN CORPUSCULAR HGB CONC 33 G/DL (32-36); MEAN CORPUSCULAR VOLUME 75 FL (80-99); MEAN PLATELET VOLUME 10.6 FL (7.4-10.4); MONOCYTES # (AUTO) 0.8 X 10^3 (0.0-1.0); MONOCYTES % (AUTO) 10 % (0-12); NEUTROPHILS % (AUTO) 72 % (42-75); PLATELET COUNT 188 10^3/uL (130-400); RED BLOOD COUNT 4.08 10^6/uL (4.35-5.85); RED CELL DISTRIBUTION WIDTH 14.9 % (10.0-14.5); WHITE BLOOD COUNT 8.2 10^3/uL (4.3-11.0)
[2017-10-11 18:35] VITALS: BP 122/70
[2017-10-11] MEDS ORDERED: FOLI0.8C PO (18:36)
[2017-10-11 18:37] LABS: URINE CREATININE FOR RATIO 22 MG/DL (30-125); URINE PROTEIN FOR RATIO ONLY < 6 MG/DL (6-12)
[2017-10-11 18:48] LABS: ALANINE AMINOTRANSFERASE 8 U/L (0-55); ALBUMIN 3.4 GM/DL (3.2-4.5); ALKALINE PHOSPHATASE 103 U/L (40-136); BILIRUBIN,TOTAL 0.4 MG/DL (0.1-1.0); BUN/CREATININE RATIO 8; CALCIUM 9.3 MG/DL (8.5-10.1); CARBON DIOXIDE 22 MMOL/L (21-32); CHLORIDE 107 MMOL/L (98-107); CREATININE SERUM 0.59 MG/DL (0.60-1.30); GFR ESTIMATED > 60; GLUCOSE 84 MG/DL (70-105); POTASSIUM 3.8 MMOL/L (3.6-5.0); SODIUM 137 MMOL/L (135-145); TOTAL PROTEIN 6.4 GM/DL (6.4-8.2); URIC ACID 5.1 MG/DL (2.6-7.2)
[2017-10-11 19:25] VITALS: BP 122/70
--- NOTE | 2017-10-13 11:20 | Physician Query-Final Dx ---
JOHNSON VELASQUEZ 10/13/17 1120: Clinic Account Progress/Dx Physician Query: Please give diagnosis Date of Service Oct 11, 2017 at 17:37 MARIANNE GRAHAM DO 10/15/17 1041: Clinic Account Progress/Dx DIAGNOSIS: Diagnosis 38 week IUP GHTN LE edema JOHNSON VELASQUEZ Oct 13, 2017 11:20 MARIANNE GRAHAM DO Oct 15, 2017 10:41
[2017-10-25] MEDS ORDERED: DOCU100C37 PO (21:03)
[2017-10-25] MEDS ORDERED: IBUP-844 PO (21:03)
[2017-10-25] MEDS ORDERED: ACHD5005 PO (21:03)
== END 2017-10-11 19:25 | disposition home or self-care (01) ==
LOC: WSo 17:37 → LDRP 17:37 → WSo 19:25
PROVIDERS: ATTEND Obstetrics & Gynecology
DX: O13.3 Gestational [pregnancy-induced] hypertension without significant proteinuria, third trimester (principal); R60.0 Localized edema; Z3A.38 38 weeks gestation of pregnancy
CPT/HCPCS: 36415; 80053; 82570; 83615; 84156; 84550; 85025; 99213

== ENCOUNTER 2017-10-19 15:21 | Outpatient (CLI) | payer OTHER ==
[~2017-10-19] VITALS: Ht 177.8 cm; Wt 135.6 kg
[~2017-10-19 15:21] MED LIST changes: +ASPI-983 PO; +FOLI0.8C PO; +PNV11TAB5 PO
[2017-10-19 15:35] VITALS: BP 118/79
[2017-10-19 16:43] LABS: URINE CREATININE FOR RATIO 35 MG/DL (30-125); URINE PROTEIN FOR RATIO ONLY < 6 MG/DL (6-12)
--- NOTE | 2017-10-20 10:09 | Physician Query-Final Dx ---
JOHNSON VELASQUEZ 10/20/17 1009: Clinic Account Progress/Dx Physician Query: Please give diagnosis Date of Service Oct 19, 2017 at 15:21 MARIANNE GRAHAM DO 10/20/17 1224: Clinic Account Progress/Dx DIAGNOSIS: Diagnosis Headache Elevated BP at home 38 week JOHNSON VELASQUEZ Oct 20, 2017 10:09 MARIANNE GRAHAM DO Oct 20, 2017 12:24
[2017-10-25] MEDS ORDERED: ACHD5005 PO (21:03)
[2017-10-25] MEDS ORDERED: IBUP-844 PO (21:03)
[2017-10-25] MEDS ORDERED: DOCU100C37 PO (21:03)
== END 2017-10-19 17:12 | disposition home or self-care (01) ==
LOC: WSo 15:21 → LDRP 15:22 → WSo 17:12
PROVIDERS: ATTEND Obstetrics & Gynecology
DX: O99.89 Other specified diseases and conditions complicating pregnancy, childbirth and the puerperium (principal); R51 Headache; R03.0 Elevated blood-pressure reading, without diagnosis of hypertension; Z3A.38 38 weeks gestation of pregnancy
CPT/HCPCS: 82570; 84156; 99213

== ENCOUNTER 2017-10-24 18:56 | Inpatient (IN) | payer OTHER ==
[~2017-10-24] VITALS: Ht 170.2 cm; Wt 137.0 kg
--- OUTSIDE RECORDS SUMMARY | 2017-10-24 19:03 | XMS REPORT ---
Author Author MARY LOU WOODARD Organization [facility] Address [address] [place] [address] Care Team Providers Care Slurry Control Tender Name Role Phone MARY LOU WOODARD Unavailable PROBLEMS Type Condition ICD9-CM Code GXG65-BL Code Onset Dates Condition Status SNOMED Code Problem Family history of ovarian cancer Z80.41 Active 936049433 Problem Family history of heart disease Z82.49 Active 147246541 Problem Family history of malignant neoplasm of endometrium Z80.49 Active 270114689394356 Problem Family history of hyperlipidemia Z83.49 Active 566386186 Problem Anxiety F41.9 Active 97069579 Problem Desire for Z31.9 Active 052224150 Problem Hirsutism L68.0 Active 395018784 Problem Obesity (BMI 35.0-39.9 without comorbidity) E66.01 Active 398407820 Problem Overweight E66.3 Active 690775042 Problem Seasonal allergic rhinitis, unspecified allergic rhinitis trigger J30.2 Active 506029423 ALLERGIES No Known Allergies SOCIAL HISTORY Never Assessed PLAN OF CARE Activity Details Follow Up prn Reason: VITAL SIGNS Height 70 in 2016-05-16 Heart Rate 86 bpm 2016-05-16 Respiratory Rate 16 2016-05-16 Blood pressure systolic 110 mmHg 2016-05-16 Blood pressure diastolic 72 mmHg 2016-05-16 MEDICATIONS Medication Instructions Dosage Frequency Start Date End Date Duration Status Active Progesterone 200 MG Vaginal Once a day 0.5 suppository 24h Active Vitamin D (Ergocalciferol) 74013 UNIT Orally one time weekly 1 capsule Jan, 12 weeks Active Folic Acid Active RESULTS No Results PROCEDURES No Known procedures IMMUNIZATIONS No Known Immunizations MEDICAL (GENERAL) HISTORY Type Description Date Medical History plantar fasciitis left [address] Barber and got an injection Surgical History DNC May 2016 Hospitalization History Cellulitis Left Knee 2007 Hospitalization History ER visit--left sided numbness 2015
--- OUTSIDE RECORDS SUMMARY | 2017-10-24 19:03 | XMS REPORT ---
Author Author MCKINLEY SANCHEZ Organization [facility] Address [address] [place] [address] Care Team Providers Care Hand Bootmaker Name Role Phone MCKINLEY SANCHEZ Unavailable PROBLEMS Type Condition ICD9-CM Code VWI17-MO Code Onset Dates Condition Status SNOMED Code Problem Family history of ovarian cancer Z80.41 Active 532747361 Problem Family history of heart disease Z82.49 Active 765342204 Problem Family history of malignant neoplasm of endometrium Z80.49 Active 270596719433472 Problem Family history of hyperlipidemia Z83.49 Active 118690634 Problem Anxiety F41.9 Active 26518996 Problem Desire for Z31.9 Active 783413834 Problem Hirsutism L68.0 Active 549550801 Problem Obesity (BMI 35.0-39.9 without comorbidity) E66.01 Active 402893838 Problem Overweight E66.3 Active 706226428 Problem Seasonal allergic rhinitis, unspecified allergic rhinitis trigger J30.2 Active 489295460 ALLERGIES No Known Allergies SOCIAL HISTORY Never Assessed PLAN OF CARE Activity Details Follow Up prn Reason: VITAL SIGNS Height 70 in 2016-05-10 Weight 266.0 lbs 2016-05-10 Temperature 98.2 degrees Fahrenheit 2016-05-10 Heart Rate 100 bpm 2016-05-10 Respiratory Rate 16 2016-05-10 BMI 38.16 kg/m2 2016-05-10 Blood pressure systolic 128 mmHg 2016-05-10 Blood pressure diastolic 78 mmHg 2016-05-10 MEDICATIONS Medication Instructions Dosage Frequency Start Date End Date Duration Status Progesterone 200 MG Vaginal Once a day 0.5 suppository 24h Active Vitamin D (Ergocalciferol) 82825 UNIT Orally one time weekly 1 capsule Jan, 12 weeks Active Active Folic Acid Active RESULTS Name Result Date Reference Range INFLUENZA A & B (IN HOUSE) 2016-05-10 INFLUENZA A negative INFLUENZA B negative Control + Lot # [id number] Exp date PROCEDURES Procedure Date Ordered Result Body Site INFLUENZA ASSAY W/OPTIC May 10, 2016 IMMUNIZATIONS No Known Immunizations MEDICAL (GENERAL) HISTORY Type Description Date Medical History plantar fasciitis left [address] Barber and got an injection Surgical History DNC May 2016 Hospitalization History Cellulitis Left Knee 2007 Hospitalization History ER visit--left sided numbness 2016
--- OUTSIDE RECORDS SUMMARY | 2017-10-24 19:03 | XMS REPORT ---
Author Author BUSTER BREWER Organization [facility] Address [address] [place] [address] Care Team Providers Care Solutions Consultant Name Role Phone BUSTER BREWER Unavailable PROBLEMS Type Condition ICD9-CM Code MCQ14-FA Code Onset Dates Condition Status SNOMED Code Problem Family history of malignant neoplasm of endometrium Z80.49 Active 980619418279297 Problem Obesity (BMI 35.0-39.9 without comorbidity) E66.01 Active 416650064 Problem Family history of heart disease Z82.49 Active 944894973 Problem Family history of hyperlipidemia Z83.49 Active 359641042 Problem Family history of ovarian cancer Z80.41 Active 682554044 Problem Gingivitis K05.10 Active 30433307 Problem Anxiety F41.9 Active 53181635 Problem Overweight E66.3 Active 147483930 Problem Hirsutism L68.0 Active 123232722 Problem Desire for Z31.9 Active 204816894 Problem Seasonal allergic rhinitis, unspecified allergic rhinitis trigger J30.2 Active 208988485 ALLERGIES No Information ENCOUNTERS Encounter Location Date Diagnosis [facility] [id number] [place] [address] 95112- 9394 Aug, [facility] [id number] [place] [address] 76519- 0224 Aug, Encounter for immunization Z23 [facility] [address] [place] [address] 85748- 6774 Jun, Dental examination Z01.20 and Gingivitis K05.10 [facility] [id number] [place] [address] 35941 -0755 Jun, [facility] [id number] [place] [address] 29803- 5887 Feb, [facility] [address] [address] Jan, Other viral agents as the cause of diseases classified elsewhere B97.89 and Acute upper respiratory infection, unspecified J06.9 [facility] [address] [address] 02 Dec, 2016 Encounter for immunization Z23 [facility] [facility] [id number] [place] [address] 02174- 6660 18 Nov, 2016 Left foot pain M79.672 [place] [facility] [id number] [place] [address] 70126- 3675 14 Nov, 2016 Dental examination Z01.20 [facility] [facility] [id number] [place] [address] 08247- 5350 Sep, [place] [facility] [id number] [place] [address] 74095- 6919 Sep, Over weight E66.3 [facility] [facility] [id number] [place] [address] 83740- 2265 Sep, Over weight E66.3 [facility] [facility] [id number] [place] [address] 19548- 7932 Aug, Over weight E66.3 [facility] [address] [place] [address] July, Needle stick injury W27.3XXA [facility] [address] [place] [address] 55913 -3280 July, Needle stick injury W27.3XXA [place] [facility] [id number] [place] [address] 89893- 3919 July, Visit for TB skin test Z11.1 and Screening for tuberculosis Z11.1 [place] [facility] [address] [place] [address] 60334- 8809 July, Over weight E66.3 [facility] [id number] [place] [address] 94116- 3032 Jun, Dental examination Z01.20 [facility] [id number] [place] [address] 02954- 2796 Jun, Encounter for immunization Z23 [facility] [id number] [place] [address] 54323 -5690 20 Apr, 2016 Gastroenteritis K52.9 [facility] [address] 43659- 8752 14 Apr, 2016 Cough R05 and Acute nasopharyngitis J00 [facility] [address] 03979- 5721 02 Mar, 2016 Less than 8 weeks gestation of Z3A.01 [facility] [id number] [place] [address] 96784- 1294 Feb, Less than 8 weeks gestation of Z3A.01 and Bleeding in early O20.9 [facility] [id number] [place] [address] 95850- 9420 Feb, Dental examination Z01.20 [facility] [id number] [place] [address] 11630- 6155 Feb, Dental examination Z01.20 [facility] [id number] [place] [address] [phone] Feb, Dental examination Z01.20 [facility] [id number] [place] [address] 25698- 7503 Jan, [facility] [id number] [place] [address] 93818- 3389 Jan, Desire for Z31.9 ; General medical exam Z00.00 and Anxiety F41.9 [place] [facility] [id number] [place] [address] 78635- 1875 Jan, Encounter for immunization Z23 [facility] [id number] [place] [address] 12248- 1256 Nov, [place] [facility] [id number] [address] 08[address] Nov, [facility] [id number] [place] [address] 53315- 1301 Nov, [facility] [id number] [place] [address] 18627- 2907 Oct, Seasonal allergic rhinitis, unspecified allergic rhinitis trigger J30.2 and Overweight E66.3 [facility] [id number] [place] [address] 94277- 4294 Oct, Left foot pain M79.672 [place] [facility] [id number] [place] [address] 62508- 6761 09 Apr, 2015 Hirsutism L68.0 and Obesity (BMI 35.0-39.9 without comorbidity) E66.01 [place] [facility] [id number] [place] [address] 93701- 7832 Mar, Obesity (BMI 35.0-39.9 without comorbidity) E66.01 [facility] [address] [place] [address] 48834- 1525 Mar, [place] [facility] [id number] [place] [address] 06339- 1567 Mar, Headache R51 [place] [facility] [id number] [place] [address] 15478- 2799 Mar, [place] [facility] [id number] [place] [address] 31241- 5456 Mar, Obesity (BMI 35.0-39.9 without comorbidity) E66.01 [place] [facility] [id number] [place] [address] 47984- 6533 Mar, [facility] [id number] [place] [address] 93824- 7437 Feb, General medical exam Z00.00 ; Hirsutism L68.0 ; Obesity ( BMI 35.0-39.9 without comorbidity) E66.01 ; Family history of hyperlipidemia Z83.49 and Family history of heart disease Z82.49 [place] [facility] [id number] [place] [address] 45030- 0676 Feb, General medical exam Z00.00 ; Hirsutism L68.0 ; Obesity ( BMI 35.0-39.9 without comorbidity) E66.01 ; Family history of ovarian cancer Z80.41 ; Family history of malignant neoplasm of endometrium Z80.49 ; Family history of hyperlipidemia Z83.49 and Family history of heart disease Z82.49 [place] [facility] [id number] [place] [address] 49078- 5526 Dec, Headache R51 [place] [address] [place] [address]- 0347 Dec, Headache R51 [place] [address] 92337- 5728 Dec, Headache R51 [place] [address] 27918- 2211 Dec, Acute pansinusitis, unspecified J01.40 and Acute upper respiratory infection, unspecified J06.9 [place] [id number] [place] [address] 10481- 4096 Dec, Encounter for immunization Z23 [place] [id number] [place] [address] 58575- 8993 Nov, Cellulitis 682.9 IMMUNIZATIONS No Known Immunizations SOCIAL HISTORY Never Assessed REASON FOR VISIT Blood pressure check PLAN OF CARE VITAL SIGNS Height 70 in 2017-07-01 Heart Rate 80 bpm 2017-07-01 Blood pressure systolic 118 mmHg 2017-07-01 Blood pressure diastolic 62 mmHg 2017-07-01 MEDICATIONS Unknown Medications RESULTS No Results PROCEDURES No Known procedures INSTRUCTIONS MEDICATIONS ADMINISTERED No Known Medications MEDICAL (GENERAL) HISTORY Type Description Date Medical History plantar fasciitis left [address] Barber and got an injection Surgical History DNC May 2016 Hospitalization History Cellulitis Left Knee 2007 Hospitalization History ER visit--left sided numbness 2015
--- OUTSIDE RECORDS SUMMARY | 2017-10-24 19:03 | XMS REPORT ---
Author Author CRISTIANA MCLEOD [facility] Address [address] [place] [address] Care Team Providers Care Extension Clerk Name Role Phone MCLEOD CRISTIANA Unavailable PROBLEMS Type Condition ICD9-CM Code EZT43-HY Code Onset Dates Condition Status SNOMED Code Problem Family history of malignant neoplasm of endometrium Z80.49 Active 943948703828733 Problem Obesity (BMI 35.0-39.9 without comorbidity) E66.01 Active 634184313 Problem Family history of heart disease Z82.49 Active 436196735 Problem Family history of hyperlipidemia Z83.49 Active 320791205 Problem Family history of ovarian cancer Z80.41 Active 548948563 Problem Gingivitis K05.10 Active 11672054 Problem Anxiety F41.9 Active 43887786 Problem Overweight E66.3 Active 941102891 Problem Hirsutism L68.0 Active 094926785 Problem Desire for Z31.9 Active 427750505 Problem Seasonal allergic rhinitis, unspecified allergic rhinitis trigger J30.2 Active 495801882 ALLERGIES No Known Allergies ENCOUNTERS Encounter Location Date Diagnosis [facility] [id number] [place] [address] 52404- 0059 Jun, Dental examination Z01.20 and Gingivitis K05.10 [facility] [address] [place] [address] 67656 -2057 Jun, [facility] [id number] [place] [address] 07654- 2458 Feb, [facility] [id number] [place] [address] 62421 -1440 Jan, Other viral agents as the cause of diseases classified elsewhere B97.89 and Acute upper respiratory infection, unspecified J06.9 [facility] [id number] [place] [address] 00286- 2222 Dec, Encounter for immunization Z23 [facility] [address], [place] [address]- 3485 18 Nov, 2016 Left foot pain M79.672 [facility] [address], [place] [address]- 4296 14 Nov, 2016 Dental examination Z01.20 [facility] [address], [place] [address]- 1674 Sep, [facility] [address] [place] [address] 27774- 3217 Sep, Over weight E66.3 [facility] [address] [place] [address] 21234- 5729 Sep, Over weight E66.3 [facility] [address], [place] [address]- 5500 Aug, Over weight E66.3 [facility] [id number] [id number] July, Needle stick injury W27.3XXA [facility] [address], [place] [address] July, Needle stick injury W27.3XXA [facility] [address], [place] [address]- 0657 July, Visit for TB skin test Z11.1 and Screening for tuberculosis Z11.1 [facility] [address], [place] [address]- 8787 July, Over weight E66.3 [facility] [address] [place] [address] 93054- 6791 Jun, Dental examination Z01.20 [facility] [address], [place] [address]- 6877 13 Jun, 2016 Encounter for immunization Z23 [facility] [address] [place] [address] 29297 -4532 20 Apr, 2016 Gastroenteritis K52.9 [facility] [id number] [place] [address] 73093- 0893 14 Apr, 2016 Cough R05 and Acute nasopharyngitis J00 [place] [facility] [id number] [place] [address] 55848- 4934 Mar, Less than 8 weeks gestation of Z3A.01 [place] [address] 78305- 5155 Feb, Less than 8 weeks gestation of Z3A.01 and Bleeding in early O20.9 [place] [address] 39485- 8766 Feb, Dental examination Z01.20 [facility] [facility] [id number] [place] [address] 93098- 0532 Feb, Dental examination Z01.20 [facility] [address] [id number] Feb, Dental examination Z01.20 [place] [id number] [place] [address] 71372- 4482 Jan, [place] [id number] [place] [address] 52669- 2226 Jan, Desire for Z31.9 ; General medical exam Z00.00 and Anxiety F41.9 [place] [facility] [id number] [place] [address] 42146- 0830 Jan, Encounter for immunization Z23 [place] [id number] [place] [address] 69393- 9799 Nov, [place] [id number] [place] [address] 23080- 2257 Nov, [facility] [id number] [place] [address] 53982- 3790 Nov, [place] [id number] [place] [address] 00564- 3153 31 Oct, 2015 Seasonal allergic rhinitis, unspecified allergic rhinitis trigger J30.2 and Overweight E66.3 [facility] [facility] [id number] [place] [address] 24699- 3497 22 Oct, 2015 Left foot pain M79.672 [place] [facility] [address] [place] [address] 59780- 2971 09 Apr, 2015 Hirsutism L68.0 and Obesity (BMI 35.0-39.9 without comorbidity) E66.01 [place] [facility] [id number] [place] [address] 48675- 7423 15 Mar, 2015 Obesity (BMI 35.0-39.9 without comorbidity) E66.01 [facility] [facility] [id number] [place] [address] 17449- 1900 15 Mar, 2015 [place] [id number] [place] [address] 53333- 7092 08 Mar, 2015 Headache R51 [place] [id number] [place] [address] 79723- 5724 08 Mar, 2015 [place] [id number] [place] [address] 69171- 9004 07 Mar, 2015 Obesity (BMI 35.0-39.9 without comorbidity) E66.01 [place] [address] [place] [address] 33826- 9960 06 Mar, 2015 [place] [id number] [place] [address] 02103- 1500 30 Feb, 2015 General medical exam Z00.00 ; Hirsutism L68.0 ; Obesity ( BMI 35.0-39.9 without comorbidity) E66.01 ; Family history of hyperlipidemia Z83.49 and Family history of heart disease Z82.49 [place] [address], [place] [address]- 2463 29 Feb, 2015 General medical exam Z00.00 ; Hirsutism L68.0 ; Obesity ( BMI 35.0-39.9 without comorbidity) E66.01 ; Family history of ovarian cancer Z80.41 ; Family history of malignant neoplasm of endometrium Z80.49 ; Family history of hyperlipidemia Z83.49 and Family history of heart disease Z82.49 [place] [address] [place] [address] 60466- 6690 Dec, Headache R51 [place] [address] 295649- 0392 Dec, Headache R51 [place] [id number] [place] [address] 755312- 8348 Dec, Headache R51 [place] [facility] [id number] [place] [address] 328258- 0712 Dec, Acute pansinusitis, unspecified J01.40 and Acute upper respiratory infection, unspecified J06.9 [place] [id number] [place] [address] 11454- 2592 Dec, Encounter for immunization Z23 [place] [id number] [place] [address] 79165- 5980 Nov, Cellulitis 682.9 IMMUNIZATIONS No Known Immunizations SOCIAL HISTORY Never Assessed REASON FOR VISIT Dental Hygiene Recare PLAN OF CARE Activity Details Follow Up prn Reason:RAHEEM VITAL SIGNS MEDICATIONS Medication Instructions Dosage Frequency Start Date End Date Duration Status Active Zyrtec Allergy 10 MG Orally Once a day 1 tablet 24h Active RESULTS No Results PROCEDURES Procedure Date Ordered Result Body Site PROPHYLAXIS - ADULT Dec 08, 2016 TOPICAL FLUORIDE VARNISH Dec 08, 2016 [facility] Employee/Board adjustment Dec 08, 2016 Billing Notes on claim Dec 08, 2016 INSTRUCTIONS MEDICATIONS ADMINISTERED No Known Medications MEDICAL (GENERAL) HISTORY Type Description Date Medical History plantar fasciitis left [address] Barber and got an injection Surgical History DNC May 2016 Hospitalization History Cellulitis Left Knee 2007 Hospitalization History ER visit--left sided numbness 2016
--- OUTSIDE RECORDS SUMMARY | 2017-10-24 19:04 | XMS REPORT ---
Author Author BUSTER BREWER [facility] Address [address] [place] [address] Care Team Providers Care Shoulder Joiner Name Role Phone BUSTER BREWER Unavailable PROBLEMS Type Condition ICD9-CM Code NAA49-PN Code Onset Dates Condition Status SNOMED Code Problem Family history of ovarian cancer Z80.41 Active 983316909 Problem Family history of heart disease Z82.49 Active 699996482 Problem Family history of malignant neoplasm of endometrium Z80.49 Active 706807908562083 Problem Family history of hyperlipidemia Z83.49 Active 805114878 Problem Anxiety F41.9 Active 70762274 Problem Desire for Z31.9 Active 146604697 Problem Hirsutism L68.0 Active 637681979 Problem Obesity (BMI 35.0-39.9 without comorbidity) E66.01 Active 585950623 Problem Overweight E66.3 Active 234789672 Problem Seasonal allergic rhinitis, unspecified allergic rhinitis trigger J30.2 Active 203250358 ALLERGIES No Information SOCIAL HISTORY Never Assessed PLAN OF CARE VITAL SIGNS MEDICATIONS Medication Instructions Dosage Frequency Start Date End Date Duration Status Contrave 8-90 MG Orally Twice a day 1 tablet 12h July, 28 days Active RESULTS No Results PROCEDURES No Known procedures IMMUNIZATIONS No Known Immunizations MEDICAL (GENERAL) HISTORY Type Description Date Medical History plantar fasciitis left [address] Barber and got an injection Surgical History DNC May 2016 Hospitalization History Cellulitis Left Knee 2007 Hospitalization History ER visit--left sided numbness 2016
--- OUTSIDE RECORDS SUMMARY | 2017-10-24 19:04 | XMS REPORT ---
Author Author MCKINLEY SANCHEZ Organization [facility] Address [address] [place] [address] Care Team Providers Care Swimming Coach Name Role Phone MCKINLEY SANCHEZ Unavailable PROBLEMS Type Condition ICD9-CM Code WGD44-HG Code Onset Dates Condition Status SNOMED Code Problem Family history of malignant neoplasm of endometrium Z80.49 Active 214304384602788 Problem Obesity (BMI 35.0-39.9 without comorbidity) E66.01 Active 094372789 Problem Family history of heart disease Z82.49 Active 124919708 Problem Family history of hyperlipidemia Z83.49 Active 464157363 Problem Family history of ovarian cancer Z80.41 Active 259658935 Problem Gingivitis K05.10 Active 93363837 Problem Anxiety F41.9 Active 21108470 Problem Overweight E66.3 Active 298692643 Problem Hirsutism L68.0 Active 851760877 Problem Desire for Z31.9 Active 600698316 Problem Seasonal allergic rhinitis, unspecified allergic rhinitis trigger J30.2 Active 172013486 ALLERGIES No Known Allergies ENCOUNTERS Encounter Location Date Diagnosis [facility] [id number] [place] [address] 14875- 4629 Jun, Dental examination Z01.20 and Gingivitis K05.10 [facility] [address] [place] [address]85 -4832 Jun, [facility] [id number] [place] [address] 24292- 3522 Feb, [facility] [id number] [place] [address] 69416 -2089 Jan, Other viral agents as the cause of diseases classified elsewhere B97.89 and Acute upper respiratory infection, unspecified J06.9 [facility] [id number] [place] [address] [place] [address] 6[address] 02 Dec, 2016 Encounter for immunization Z23 [facility] [address] [address] 18 Nov, 2016 Left foot pain M79.672 [facility] [address] [address] 8786 14 Nov, 2016 Dental examination Z01.20 [facility] [address] [place] [address] Sep, [facility] [address] [place] [address] 54731- 2363 Sep, Over weight E66.3 [facility] [address] [address] 4[address] Sep, Over weight E66.3 [facility] [address], [place] [address] 1730 Aug, Over weight E66.3 [facility] [id number] [id number] July, Needle stick injury W27.3XXA [facility] [address] [place] [address] 91668 -0128 July, Needle stick injury W27.3XXA [facility] [address], [place] [address] July, Visit for TB skin test Z11.1 and Screening for tuberculosis Z11.1 [facility] [address], [place] [address] 150[address] July, Over weight E66.3 [facility] [address] [address] 5[address] Jun, Dental examination Z01.20 [facility] [address], [place] [address] 5166 Jun, Encounter for immunization Z23 [facility] [id number] [place] [address] 95325 -5887 20 Apr, 2016 Gastroenteritis K52.9 [facility] [address] [address]- 6326 14 Apr, 2016 Cough R05 and Acute nasopharyngitis J00 [facility] [address] 66[address]- 9499 Mar, Less than 8 weeks gestation of Z3A.01 [facility] [address] 70256- 7678 Feb, Less than 8 weeks gestation of Z3A.01 and Bleeding in early O20.9 [place] [address] 22[address]- 4611 Feb, Dental examination Z01.20 [place] [address] 77[address]- 4968 Feb, Dental examination Z01.20 [facility] [address] [id number] Feb, Dental examination Z01.20 [facility] [address] [address]- 6551 Jan, [place] [id number] [place] [address] 26310- 6533 Jan, Desire for Z31.9 ; General medical exam Z00.00 and Anxiety F41.9 [place] [id number] [place] [address] 04733- 3036 Jan, Encounter for immunization Z23 [place] [address] 65444- 4564 Nov, [place] [address] 06460- 0428 Nov, [place] [address] [address]- 4986 Nov, [place] [id number] [place] [address] 79070- 7734 31 Oct, 2015 Seasonal allergic rhinitis, unspecified allergic rhinitis trigger J30.2 and Overweight E66.3 [place] [id number] [place] [address] 61637- 3107 22 Oct, 2015 Left foot pain M79.672 [place] [id number] [place] [address] 81296- 1357 09 Apr, 2015 Hirsutism L68.0 and Obesity (BMI 35.0-39.9 without comorbidity) E66.01 [place] [id number] [place] [address] 60004- 9044 15 Mar, 2015 Obesity (BMI 35.0-39.9 without comorbidity) E66.01 [place] [id number] [place] [address] 42501- 2570 15 Mar, 2015 [place] [id number] [place] [address] 03456- 8901 08 Mar, 2015 Headache R51 [place] [id number] [place] [address] 81273- 2456 08 Mar, 2015 [place] [id number] [place] [address] 28166- 8349 07 Mar, 2015 Obesity (BMI 35.0-39.9 without comorbidity) E66.01 [place] [id number] [place] [address] 46012- 6587 06 Mar, [address] [place] [id number] [place] [address] 69972- 1264 30 Feb, 2015 General medical exam Z00.00 ; Hirsutism L68.0 ; Obesity ( BMI 35.0-39.9 without comorbidity) E66.01 ; Family history of hyperlipidemia Z83.49 and Family history of heart disease Z82.49 [place] [address], [place] [address] 0[address] 29 Feb, 2015 General medical exam Z00.00 ; Hirsutism L68.0 ; Obesity ( BMI 35.0-39.9 without comorbidity) E66.01 ; Family history of ovarian cancer Z80.41 ; Family history of malignant neoplasm of endometrium Z80.49 ; Family history of hyperlipidemia Z83.49 and Family history of heart disease Z82.49 [place] [address] [place] [address] 30084- 9552 Dec, Headache R51 [place] [address] [id number]- 7699 Dec, Headache R51 [place] [address] [place] [address]- 6705 Dec, Headache R51 [place] [address] 3652 Dec, Acute pansinusitis, unspecified J01.40 and Acute upper respiratory infection, unspecified J06.9 [place] [id number] [place] [address] 34541- 9810 Dec, Encounter for immunization Z23 [address] [address]- 5756 Nov, Cellulitis 682.9 IMMUNIZATIONS No Known Immunizations SOCIAL HISTORY Never Assessed REASON FOR VISIT foot pain, Foot pain that began after moving. No known injury-ZOHAIB [place] PLAN OF CARE Activity Details Follow Up prn Reason: VITAL SIGNS Height 70 in 2016-12-12 Weight 261 lbs 2016-12-12 Temperature 98.8 degrees Fahrenheit 2016-12-12 Heart Rate 86 bpm 2016-12-12 Respiratory Rate 18 2016-12-12 BMI 37.45 kg/m2 2016-12-12 Blood pressure systolic 128 mmHg 2016-12-12 Blood pressure diastolic 88 mmHg 2016-12-12 MEDICATIONS Medication Instructions Dosage Frequency Start Date End Date Duration Status Active RESULTS Name Result Date Reference Range Xray : Foot, Left 3 views (IN HOUSE) 2016-12-12 PROCEDURES Procedure Date Ordered Result Body Site X-RAY EXAM OF FOOT Dec 12, 2016 INSTRUCTIONS MEDICATIONS ADMINISTERED No Known Medications MEDICAL (GENERAL) HISTORY Type Description Date Medical History plantar fasciitis left [address] Barber and got an injection Surgical History DNC May 2016 Hospitalization History Cellulitis Left Knee 2007 Hospitalization History ER visit--left sided numbness 2016
--- OUTSIDE RECORDS SUMMARY | 2017-10-24 19:04 | XMS REPORT ---
Author Author BUSTER BREWER Organization [facility] Address [address] [place] [address] Care Team Providers Care Director Prison Name Role Phone BUSTER BREWER Unavailable PROBLEMS Type Condition ICD9-CM Code JUG07-PQ Code Onset Dates Condition Status SNOMED Code Problem Family history of ovarian cancer Z80.41 Active 152132211 Problem Family history of heart disease Z82.49 Active 155617909 Problem Family history of malignant neoplasm of endometrium Z80.49 Active 827211149319079 Problem Family history of hyperlipidemia Z83.49 Active 297922196 Problem Anxiety F41.9 Active 64541728 Problem Desire for Z31.9 Active 191815253 Problem Hirsutism L68.0 Active 945544067 Problem Obesity (BMI 35.0-39.9 without comorbidity) E66.01 Active 489533818 Problem Overweight E66.3 Active 376092411 Problem Seasonal allergic rhinitis, unspecified allergic rhinitis trigger J30.2 Active 354432192 ALLERGIES No Information ENCOUNTERS Encounter Location Date Diagnosis [facility] [id number] [place] [address] 95002- 2619 Jun, [facility] [id number] [place] [address] 32951- 4245 Feb, [facility] [id number] [place] [address] 27527 -9636 Jan, Other viral agents as the cause of diseases classified elsewhere B97.89 and Acute upper respiratory infection, unspecified J06.9 [facility] [id number] [place] [address] 77196- 1844 Dec, Encounter for immunization Z23 [facility] [id number] [place] [address] 03516- 3272 Nov, Left foot pain M79.672 [facility] [address], [place] [address]- 6947 14 Nov, 2016 Dental examination Z01.20 [facility] [address], [place] [address]- 3265 Sep, [facility] [address], [place] [address]- 5768 Sep, Over weight E66.3 [facility] [address] [place] [address] 74384- 2364 Sep, Over weight E66.3 [facility] [address] [place] [address] 47555- 2783 Aug, Over weight E66.3 [facility] [place] [id number] [id number] July, Needle stick injury W27.3XXA [facility] [address] [place] [address] 30034 -9055 July, Needle stick injury W27.3XXA [facility] [address] [place] [address] 27625- 5842 July, Visit for TB skin test Z11.1 and Screening for tuberculosis Z11.1 [facility] [address], [place] [address]- 0656 July, Over weight E66.3 [facility] [address] [place] [address] 01774- 9512 Jun, Dental examination Z01.20 [facility] [address], [place] [address]- 1489 13 Jun, 2016 Encounter for immunization Z23 [facility] [address] [place] [address] 70294 -8135 20 Apr, 2016 Gastroenteritis K52.9 [facility] [address] [place] [address] 40808- 3379 14 Apr, 2016 Cough R05 and Acute nasopharyngitis J00 [facility] [id number] [place] [address] 20859- 5827 Mar, Less than 8 weeks gestation of Z3A.01 [facility] [id number] [place] [address] 75001- 4850 Feb, Less than 8 weeks gestation of Z3A.01 and Bleeding in early O20.9 [facility] [id number] [place] [address] 67480- 5634 Feb, Dental examination Z01.20 [place] [address] 58549- 4012 Feb, Dental examination Z01.20 [facility] [id number] [place] [address] [id number] Feb, Dental examination Z01.20 [place] [id number] [place] [address] 17735- 8785 Jan, [place] [id number] [place] [address] 86671- 1834 Jan, Desire for Z31.9 ; General medical exam Z00.00 and Anxiety F41.9 [place] [id number] [place] [address] 76082- 4611 Jan, Encounter for immunization Z23 [place] [id number] [place] [address] 48376- 2411 Nov, [place] [id number] [place] [address] 02205- 9585 Nov, [address] [address] 05296- 9126 Nov, [place] [id number] [place] [address] 80784- 7555 Oct, Seasonal allergic rhinitis, unspecified allergic rhinitis trigger J30.2 and Overweight E66.3 [address] [address] [place] [address]- 2011 Oct, Left foot pain M79.672 [place] [address] [place] [address] 12705- 5631 09 Apr, 2015 Hirsutism L68.0 and Obesity (BMI 35.0-39.9 without comorbidity) E66.01 [place] [address] [place] [address] 59694- 5664 15 Mar, 2015 Obesity (BMI 35.0-39.9 without comorbidity) E66.01 [place] [address] [place] [address] 13987- 3249 15 Mar, 2015 [place] [address] [place] [address] 19120- 5699 08 Mar, 2015 Headache R51 [place] [address] [place] [address] 92864- 0685 Mar, [place] [address] [place] [address] 83957- 6407 07 Mar, 2015 Obesity (BMI 35.0-39.9 without comorbidity) E66.01 [place] [address] [place] [address] 94563- 7131 06 Mar, 2015 [address] [address] [place] [address] 93976- 2853 Feb, General medical exam Z00.00 ; Hirsutism L68.0 ; Obesity ( BMI 35.0-39.9 without comorbidity) E66.01 ; Family history of hyperlipidemia Z83.49 and Family history of heart disease Z82.49 [place] [address] [place] [address] 91784- 8105 29 Feb, 2015 General medical exam Z00.00 ; Hirsutism L68.0 ; Obesity ( BMI 35.0-39.9 without comorbidity) E66.01 ; Family history of ovarian cancer Z80.41 ; Family history of malignant neoplasm of endometrium Z80.49 ; Family history of hyperlipidemia Z83.49 and Family history of heart disease Z82.49 [place] [address], [place] [address]- 9837 Dec, Headache R51 [place] [id number] [place] [address] 743565- 2513 Dec, Headache R51 [place] [id number] [place] [address] 33249- 3356 Dec, Headache R51 [place] [id number] [place] [address] 229479- 3663 Dec, Acute pansinusitis, unspecified J01.40 and Acute upper respiratory infection, unspecified J06.9 [place] [id number] [place] [address] 73739- 1063 Dec, Encounter for immunization Z23 [place] [address] [place] [address] 28969- 2153 Nov, Cellulitis 682.9 IMMUNIZATIONS No Known Immunizations SOCIAL HISTORY Never Assessed REASON FOR VISIT refill request PLAN OF CARE VITAL SIGNS MEDICATIONS Medication Instructions Dosage Frequency Start Date End Date Duration Status Contrave 8-90 MG Orally Twice a day 1 tablet 12h 30 days Active RESULTS No Results PROCEDURES No Known procedures INSTRUCTIONS MEDICATIONS ADMINISTERED No Known Medications MEDICAL (GENERAL) HISTORY Type Description Date Medical History plantar fasciitis left [address] Barber and got an injection Surgical History DNC May 2016 Hospitalization History Cellulitis Left Knee 2007 Hospitalization History ER visit--left sided numbness 2016
--- OUTSIDE RECORDS SUMMARY | 2017-10-24 19:05 | XMS REPORT ---
Author Author BUSTER BREWER Organization [facility] Address [address] [place] [address] Care Team Providers Care Desktop Support Technician Name Role Phone BUSTER BREWER Unavailable PROBLEMS Type Condition ICD9-CM Code IOA65-IN Code Onset Dates Condition Status SNOMED Code Problem Family history of ovarian cancer Z80.41 Active 858587811 Problem Family history of heart disease Z82.49 Active 495449588 Problem Family history of malignant neoplasm of endometrium Z80.49 Active 128491165290336 Problem Family history of hyperlipidemia Z83.49 Active 352656103 Problem Anxiety F41.9 Active 55170783 Problem Desire for Z31.9 Active 734621643 Problem Hirsutism L68.0 Active 972068031 Problem Obesity (BMI 35.0-39.9 without comorbidity) E66.01 Active 966042870 Problem Overweight E66.3 Active 446342655 Problem Seasonal allergic rhinitis, unspecified allergic rhinitis trigger J30.2 Active 621635849 ALLERGIES No Known Allergies ENCOUNTERS Encounter Location Date Diagnosis [facility] [address] [place] [address] 15603- 5746 08 Feb, 2017 [facility] [id number] [place] [address] 25743 -3080 09 Jan, 2017 Other viral agents as the cause of diseases classified elsewhere B97.89 and Acute upper respiratory infection, unspecified J06.9 [facility] [id number] [place] [address] 56752- 5850 02 Dec, 2016 Encounter for immunization Z23 [facility] [id number] [place] [address] 15674- 0428 18 Nov, 2016 Left foot pain M79.672 [facility] [address] [place] [address] 79014- 1568 Nov, Dental examination Z01.20 [facility] [address], [place] [address] Sep, [facility] [address], [place] [address] 4[address] Sep, Over weight E66.3 [facility] [address], [place] [address] 18[address] Sep, Over weight E66.3 [facility] [address], [place] [address] 9068 Aug, Over weight E66.3 [facility] [id number] [id number] July, Needle stick injury W27.3XXA [facility] [address] [place] [address] 91387 -4034 July, Needle stick injury W27.3XXA [facility] [address] [place] [address] 09928- 8499 July, Visit for TB skin test Z11.1 and Screening for tuberculosis Z11.1 [place] [address] [place] [address] 79591- 2083 July, Over weight E66.3 [facility] [address], [place] [address] 27[address] Jun, Dental examination Z01.20 [facility] [address] [place] [address] 23602- 1063 13 Jun, 2016 Encounter for immunization Z23 [facility] [address] [place] [address] 92010 -8547 20 Apr, [address] [facility] [address] [place] [address] 36713- 0922 14 Apr, 2016 Cough R05 and Acute nasopharyngitis J00 [facility] [id number] [place] [address] 52605- 2256 Mar, Less than 8 weeks gestation of Z3A.01 [facility] [id number] [place] [address] 66826- 2471 Feb, Less than 8 weeks gestation of Z3A.01 and Bleeding in early O20.9 [facility] [id number] [place] [address] 69097- 1547 Feb, Dental examination Z01.20 [facility] [address] 45966- 2963 Feb, Dental examination Z01.20 [facility] [address] [id number] Feb, Dental examination Z01.20 [facility] [id number] [place] [address] 93207- 9831 Jan, [place] [address] 650[address]- 3400 Jan, Desire for Z31.9 ; General medical exam Z00.00 and Anxiety F41.9 [place] [address] 49949- 1003 Jan, Encounter for immunization Z23 [place] [id number] [place] [address] 16805- 4445 Nov, [place] [id number] [place] [address] 71854- 2922 Nov, [facility] [address] [place] [address] 07326- 6605 Nov, [place] [address] 08535- 0181 Oct, Seasonal allergic rhinitis, unspecified allergic rhinitis trigger J30.2 and Overweight E66.3 [place] [address] [place] [address] 68674- 6025 Oct, Left foot pain M79.672 [place] [address], [place] [address] 8[address] 09 Apr, 2015 Hirsutism L68.0 and Obesity (BMI 35.0-39.9 without comorbidity) E66.01 [place] [address], [place] [address] 8396 15 Mar, 2015 Obesity (BMI 35.0-39.9 without comorbidity) E66.01 [place] [address] [place] [address] 83439- 9449 Mar, [place] [address] [place] [address] 92671- 7909 Mar, Headache R51 [facility] [facility] [address] [place] [address] 04573- 0993 Mar, [place] [address] [place] [address] 12546- 6545 Mar, Obesity (BMI 35.0-39.9 without comorbidity) E66.01 [place] [address], [place] [address] 1844 Mar, [place] [address] [place] [address] 00342- 1239 Feb, General medical exam Z00.00 ; Hirsutism L68.0 ; Obesity ( BMI 35.0-39.9 without comorbidity) E66.01 ; Family history of hyperlipidemia Z83.49 and Family history of heart disease Z82.49 [place] [address], [place] [address] 8[address] 29 Feb, 2015 General medical exam Z00.00 ; Hirsutism L68.0 ; Obesity ( BMI 35.0-39.9 without comorbidity) E66.01 ; Family history of ovarian cancer Z80.41 ; Family history of malignant neoplasm of endometrium Z80.49 ; Family history of hyperlipidemia Z83.49 and Family history of heart disease Z82.49 [place] [address], [place] [address] 15[address] Dec, [address] [facility] [address] [facility] [id number] [address] 49[address] Dec, [address] [facility] [id number] [address] Dec, Head[address]51 [facility] [id number], [place] [address] 5185 Dec, Acute pansinusitis, unspecified J01.40 and Acute upper respiratory infection, unspecified J06.9 [place] [id number], [place] [address]- 0120 Dec, Encounter for immunization Z23 [place] [id number], [place] [address] 3837 Nov, Cellulitis 682.9 IMMUNIZATIONS No Known Immunizations SOCIAL HISTORY Never Assessed [facility]AS[facility] FOR [facility]ISIT [facility]ARE Activity Details Follow Up 2 Months Reason:med review VITAL SIGNS Height 70 in 2016-09-28 Weight 258 lbs 2016-09-28 Temperature 98.0 degrees Fahrenheit 2016-09-28 Heart Rate 88 bpm 2016-09-28 Respiratory Rate 18 2016-09-28 BMI 37.02 kg/m2 2016-09-28 Blood pressure systolic 128 mmHg 2016-09-28 Blood pressure diastolic 78 mmHg 2016-09-28 MEDICATIONS Medication Instructions Dosage Frequency Start Date End Date Duration Status Zyrtec Allergy 10 MG Orally Once a day 1 tablet 24h Active Contrave 8-90 MG Orally Twice a day 1 tablet 12h 28 days Active Active RESULTS No Results PROCEDURES No Known procedures INSTRUCTIONS MEDICATIONS ADMINISTERED No Known Medications MEDICAL (GENERAL) HISTORY Type Description Date Medical History plantar fasciitis left [address] Barber and got an injection Surgical History DNC May 2016 Hospitalization History Cellulitis Left Knee 2007 Hospitalization History ER visit--left sided numbness 2015
--- OUTSIDE RECORDS SUMMARY | 2017-10-24 19:05 | XMS REPORT ---
Author Author CRISTIANA MCLEOD [facility] Address [address] [place] [address] Care Team Providers Care Residence Leasing Agent Name Role Phone MCLEOD CRISTIANA Unavailable PROBLEMS Type Condition ICD9-CM Code LBY59-KD Code Onset Dates Condition Status SNOMED Code Problem Obesity (BMI 35.0-39.9 without comorbidity) E66.01 Active 456653130 Problem General medical exam Z00.00 Active 703674954 Problem Hirsutism L68.0 Active 912611760 Problem Family history of heart disease Z82.49 Active 847884379 Problem Family history of hyperlipidemia Z83.49 Active 714676343 Problem Family history of malignant neoplasm of endometrium Z80.49 Active 602506542557408 Problem Family history of ovarian cancer Z80.41 Active 134315568 Problem Less than 8 weeks gestation of Z3A.01 Active 44778580 Problem Bleeding in early O20.9 Active 76226446 Problem Seasonal allergic rhinitis, unspecified allergic rhinitis trigger J30.2 Active 201142349 Problem Overweight E66.3 Active 514381062 Problem Desire for Z31.9 Active 194608168 Problem Anxiety F41.9 Active 67160821 ALLERGIES Substance Reaction Event Type Date Status N.K.D.A. Unknown Non Drug Allergy Feb, Unknown SOCIAL HISTORY No smoking Hx information available PLAN OF CARE Activity Details Follow Up prn Reason:fillings VITAL SIGNS MEDICATIONS Medication Instructions Dosage Frequency Start Date End Date Duration Status BusPIRone HCl 10 MG Orally Twice a day 1 tablet 12h Nov, Active Folic Acid Active Zyrtec Allergy 10 MG Orally Once a day 1 tablet 24h Active Flonase 50 MCG/DOSE Nasally Once a day 1 spray in each nostril 24h Oct, 30 day(s) Active Vitamin D (Ergocalciferol) 85199 UNIT Orally one time weekly 1 capsule Jan, 12 weeks Active Active RESULTS No Results PROCEDURES Procedure Date Ordered Related Diagnosis Body Site Billing Notes on claim Mar 17, 2016 [facility]/Board adjustment Mar 17, 2016 IMMUNIZATIONS No Known Immunizations
--- OUTSIDE RECORDS SUMMARY | 2017-10-24 19:05 | XMS REPORT ---
Author Author PIA REEVES Organization [facility] Address [address] [place] [address] Care Team Providers Care Bulk Pallet Builder Name Role Phone PIA REEVES Unavailable PROBLEMS Type Condition ICD9-CM Code ZCB93-HC Code Onset Dates Condition Status SNOMED Code Problem Family history of ovarian cancer Z80.41 Active 022727803 Problem Family history of heart disease Z82.49 Active 823854823 Problem Family history of malignant neoplasm of endometrium Z80.49 Active 646404420497217 Problem Family history of hyperlipidemia Z83.49 Active 515624437 Problem Anxiety F41.9 Active 42773939 Problem Desire for Z31.9 Active 543972053 Problem Hirsutism L68.0 Active 155703424 Problem Obesity (BMI 35.0-39.9 without comorbidity) E66.01 Active 572961020 Problem Overweight E66.3 Active 980826966 Problem Seasonal allergic rhinitis, unspecified allergic rhinitis trigger J30.2 Active 805530977 ALLERGIES No Information SOCIAL HISTORY Never Assessed PLAN OF CARE VITAL SIGNS MEDICATIONS No Known Medications RESULTS Name Result Date Reference Range HEP B SURFACE ANTIGEN 2016-08-17 HBsAg Screen Negative Negative HIV ANTIGEN/ANTIBODY 2016-08-17 HIV Screen 4th Generation wRfx Non Reactive Non Reactive HEP C ANTIBODY 2016-08-17 Hep C Virus Ab 0.2 0.0-0.9 PROCEDURES Procedure Date Ordered Result Body Site HEPATITIS B SURFACE AG, EIA August 17, 2016 HIV-1 AG W/HIV-1 & HIV-2 AB August 17, 2016 VENIPUNCT, ROUTINE* August 17, 2016 HEPATITIS C AB TEST August 17, 2016 IMMUNIZATIONS No Known Immunizations MEDICAL (GENERAL) HISTORY Type Description Date Medical History plantar fasciitis left [address] Barber and got an injection Surgical History DNC May 2016 Hospitalization History Cellulitis Left Knee 2007 Hospitalization History ER visit--left sided numbness 2015
--- OUTSIDE RECORDS SUMMARY | 2017-10-24 19:05 | XMS REPORT ---
Author Author PIA REEVES Organization [facility] Address [address] [place] [address] Care Team Providers Care Director Of Fundraising Name Role Phone PIA REEVES Unavailable PROBLEMS Type Condition ICD9-CM Code RXS17-EW Code Onset Dates Condition Status SNOMED Code Problem Family history of ovarian cancer Z80.41 Active 395817606 Problem Family history of heart disease Z82.49 Active 964959754 Problem Family history of malignant neoplasm of endometrium Z80.49 Active 820201614343745 Problem Family history of hyperlipidemia Z83.49 Active 996327449 Problem Anxiety F41.9 Active 14727628 Problem Desire for Z31.9 Active 103184605 Problem Hirsutism L68.0 Active 749934563 Problem Obesity (BMI 35.0-39.9 without comorbidity) E66.01 Active 641743359 Problem Overweight E66.3 Active 939490971 Problem Seasonal allergic rhinitis, unspecified allergic rhinitis trigger J30.2 Active 482176779 ALLERGIES No Information SOCIAL HISTORY Never Assessed PLAN OF CARE Activity Details Follow Up prn Reason: VITAL SIGNS MEDICATIONS Unknown Medications RESULTS No Results PROCEDURES No Known procedures IMMUNIZATIONS No Known Immunizations MEDICAL (GENERAL) HISTORY Type Description Date Medical History plantar fasciitis left [address] Barber and got an injection Surgical History DNC May 2016 Hospitalization History Cellulitis Left Knee 2007 Hospitalization History ER visit--left sided numbness 2016
--- OUTSIDE RECORDS SUMMARY | 2017-10-24 19:05 | XMS REPORT ---
Author Author BUSTER BREWER Organization [facility] Address [address] [place] [address] Care Team Providers Care Talent Development Coordinator Name Role Phone BUSTER BREWER Unavailable PROBLEMS Type Condition ICD9-CM Code KAH40-ME Code Onset Dates Condition Status SNOMED Code Problem Family history of malignant neoplasm of endometrium Z80.49 Active 193974172368410 Problem Obesity (BMI 35.0-39.9 without comorbidity) E66.01 Active 991292407 Problem Family history of heart disease Z82.49 Active 200591716 Problem Family history of hyperlipidemia Z83.49 Active 307491937 Problem Family history of ovarian cancer Z80.41 Active 994874501 Problem Gingivitis K05.10 Active 31525416 Problem Anxiety F41.9 Active 53798081 Problem Overweight E66.3 Active 728626743 Problem Hirsutism L68.0 Active 709029152 Problem Desire for Z31.9 Active 930947095 Problem Seasonal allergic rhinitis, unspecified allergic rhinitis trigger J30.2 Active 728616089 ALLERGIES No Information ENCOUNTERS Encounter Location Date Diagnosis [facility] [id number] [place] [address] 11897- 4704 Jun, Dental examination Z01.20 and Gingivitis K05.10 [facility] [id number], [place] [address] Jun, [facility] [id number] [place] [address] 40852- 1455 Feb, [facility] [id number] [place] [address] 68849 -8940 Jan, Other viral agents as the cause of diseases classified elsewhere B97.89 and Acute upper respiratory infection, unspecified J06.9 [facility] [address], [place] [address]- 4898 02 Dec, 2016 Encounter for immunization Z23 [facility] [address] [place] [address] 93311- 5692 18 Nov, 2016 Left foot pain M79.672 [facility] [address], [place] [address]- 0742 14 Nov, 2016 Dental examination Z01.20 [facility] [address] [place] [address] 02737- 9013 Sep, [facility] [address] [place] [address] 36583- 8710 Sep, Over weight E66.3 [facility] [address] [place] [address] 10570- 8517 Sep, Over weight E66.3 [facility] [address] [place] [address] 57384- 9670 Aug, Over weight E66.3 [facility] [id number] [id number] July, Needle stick injury W27.3XXA [facility] [address] [place] [address] 47105 -7729 July, Needle stick injury W27.3XXA [facility] [address], [place] [address]- 3133 July, Screening for tuberculosis Z11.1 and Visit for TB skin test Z11.1 [facility] [address], [place] [address]- 2282 July, Over weight E66.3 [facility] [address] [place] [address] 44772- 1871 Jun, Dental examination Z01.20 [facility] [address], [place] [address]- 4157 Jun, Encounter for immunization Z23 [facility] [id number] [place] [address] 85831 -7987 20 Apr, 2016 Gastroenteritis K52.9 [facility] [address] 6[address]23- 2464 14 Apr, 2016 Cough R05 and Acute nasopharyngitis J00 [facility] [address] 63076- 9492 Mar, Less than 8 weeks gestation of Z3A.01 [facility] [address] 91369- 8946 Feb, Less than 8 weeks gestation of Z3A.01 and Bleeding in early O20.9 [place] [address] 49038- 1222 Feb, Dental examination Z01.20 [place] [address] 11315- 7975 Feb, Dental examination Z01.20 [facility] [address] [id number] Feb, Dental examination Z01.20 [facility] [address] 35790- 2484 Jan, [facility] [address] 91154- 4390 Jan, Desire for Z31.9 ; General medical exam Z00.00 and Anxiety F41.9 [facility] [id number] [place] [address] 83170- 1708 Jan, Encounter for immunization Z23 [facility] [address] 37166- 3086 Nov, [facility] [address] 85979- 5267 Nov, [facility] [address] 95687- 4494 Nov, [place] [id number] [place] [address] 00205- 5700 31 Oct, 2015 Seasonal allergic rhinitis, unspecified allergic rhinitis trigger J30.2 and Overweight E66.3 [place] [address] [place] [address] 60052- 3659 22 Oct, 2015 Left foot pain M79.672 [place] [id number] [place] [address] 97772- 7234 09 Apr, 2015 Hirsutism L68.0 and Obesity (BMI 35.0-39.9 without comorbidity) E66.01 [place] [address] 60935- 9080 15 Mar, 2015 Obesity (BMI 35.0-39.9 without comorbidity) E66.01 [place] [id number] [place] [address] 91626- 5172 15 Mar, 2015 [place] [id number] [place] [address] 05216- 2678 Mar, Headache R51 [place] [id number] [place] [address] 76620- 9545 08 Mar, 2015 [place] [id number] [place] [address] 78611- 9154 Mar, Obesity (BMI 35.0-39.9 without comorbidity) E66.01 [place] [id number] [place] [address] 73455- 5882 06 Mar, 2015 [place] [id number] [place] [address] 89689- 4910 Feb, General medical exam Z00.00 ; Hirsutism L68.0 ; Obesity ( BMI 35.0-39.9 without comorbidity) E66.01 ; Family history of hyperlipidemia Z83.49 and Family history of heart disease Z82.49 [place] [id number] [place] [address] 97641- 2263 29 Feb, 2015 General medical exam Z00.00 ; Hirsutism L68.0 ; Obesity ( BMI 35.0-39.9 without comorbidity) E66.01 ; Family history of ovarian cancer Z80.41 ; Family history of malignant neoplasm of endometrium Z80.49 ; Family history of hyperlipidemia Z83.49 and Family history of heart disease Z82.49 [place] [address] [place] [address] 06382- 0198 Dec, Headache R51 [place] [address] 51690- 2660 Dec, Headache R51 [place] [address] 43707- 4478 Dec, Headache R51 [place] [address] 36821- 9782 Dec, Acute pansinusitis, unspecified J01.40 and Acute upper respiratory infection, unspecified J06.9 [place] [id number] [place] [address] 15686- 5087 Dec, Encounter for immunization Z23 [place] [id number] [place] [address] 48633- 7605 Nov, Cellulitis 682.9 IMMUNIZATIONS Vaccine Route Administration Date Status FLUARIX QUAD (3 AND UP) 2016 IM Intramuscular Dec 26, 2016 Administered SOCIAL HISTORY Never Assessed REASON FOR VISIT Flu shot PLAN OF CARE VITAL SIGNS MEDICATIONS Unknown Medications RESULTS No Results PROCEDURES Procedure Date Ordered Result Body Site FLUARIX QUAD (3 & UP)--2014Dec 26, 2016 SINGLE IMMUNIZATION ADMIN Dec 26, 2016 INSTRUCTIONS MEDICATIONS ADMINISTERED No Known Medications MEDICAL (GENERAL) HISTORY Type Description Date Medical History plantar fasciitis left [address] Barber and got an injection Surgical History DNC May 2016 Hospitalization History Cellulitis Left Knee 2007 Hospitalization History ER visit--left sided numbness 2016
--- OUTSIDE RECORDS SUMMARY | 2017-10-24 19:05 | XMS REPORT ---
Author Author BUSTER BREWER Organization [facility] Address [address] [place] [address] Care Team Providers Care Ground Systems Engineer Name Role Phone BUSTER BREWER Unavailable PROBLEMS Type Condition ICD9-CM Code IPO59-OR Code Onset Dates Condition Status SNOMED Code Problem Family history of ovarian cancer Z80.41 Active 570779283 Problem Family history of heart disease Z82.49 Active 189889598 Problem Family history of malignant neoplasm of endometrium Z80.49 Active 884516546624449 Problem Family history of hyperlipidemia Z83.49 Active 959435607 Problem Anxiety F41.9 Active 19058965 Problem Desire for Z31.9 Active 953446967 Problem Hirsutism L68.0 Active 012991583 Problem Obesity (BMI 35.0-39.9 without comorbidity) E66.01 Active 023198688 Problem Overweight E66.3 Active 604368310 Problem Seasonal allergic rhinitis, unspecified allergic rhinitis trigger J30.2 Active 444878054 ALLERGIES No Information ENCOUNTERS Encounter Location Date Diagnosis [facility] [id number] [place] [address] 90925- 8048 Jun, [facility] [id number] [place] [address] 63599- 3513 Feb, [facility] [id number] [place] [address] 43189 -9954 Jan, Other viral agents as the cause of diseases classified elsewhere B97.89 and Acute upper respiratory infection, unspecified J06.9 [facility] [id number] [place] [address] 92676- 6689 Dec, Encounter for immunization Z23 [facility] [id number] [place] [address] 36749- 5413 Nov, Left foot pain M79.672 [facility] [address] [address] 14 Nov, 2016 Dental examination Z01.20 [facility] [address] [address] Sep, [facility] [address] [address] 16[address] Sep, Over weight E66.3 [facility] [address] [place] [address] 14553- 8277 Sep, Over weight E66.3 [facility] [address] [place] [address] 09729- 0177 Aug, Over weight E66.3 [facility] [id number] [id number] July, Needle stick injury W27.3XXA [facility] [address] [place] [address] 17053 -7592 July, Needle stick injury W27.3XXA [facility] [address] [place] [address] 70165- 6124 July, Screening for tuberculosis Z11.1 and Visit for TB skin test Z11.1 [facility] [address] [address] 9[address] July, Over weight E66.3 [facility] [address] [place] [address] 02336- 6773 Jun, Dental examination Z01.20 [facility] [address] [address] 6[address] 13 Jun, 2016 Encounter for immunization Z23 [facility] [address] [place] [address] 44484 -3079 20 Apr, 2016 Gastroenteritis K52.9 [facility] [address] [place] [address] 92974- 8207 14 Apr, 2016 Cough R05 and Acute nasopharyngitis J00 [facility] [id number] [place] [address] 67501- 3992 Mar, Less than 8 weeks gestation of Z3A.01 [facility] [id number] [place] [address] 21461- 1979 Feb, Less than 8 weeks gestation of Z3A.01 and Bleeding in early O20.9 [facility] [id number] [place] [address] 91790- 1973 Feb, Dental examination Z01.20 [address] [address] [address]- 7460 Feb, Dental examination Z01.20 [facility] [id number] [place] [address] [id number] Feb, Dental examination Z01.20 [place] [id number] [place] [address] 40752- 0000 Jan, [place] [id number] [place] [address] 56705- 0917 Jan, Desire for Z31.9 ; General medical exam Z00.00 and Anxiety F41.9 [place] [address] [place] [address] 73660- 7712 Jan, Encounter for immunization Z23 [place] [id number] [place] [address] 91106- 9010 Nov, [place] [id number] [place] [address] 66234- 0819 Nov, [address] [address] 81666- 1304 Nov, [place] [id number] [place] [address] 25662- 2919 Oct, Seasonal allergic rhinitis, unspecified allergic rhinitis trigger J30.2 and Overweight E66.3 [place] [address] [place] [address] 1367 Oct, Left foot pain M79.672 [place] [address] [place] [address] 20716- 4808 09 Apr, 2015 Hirsutism L68.0 and Obesity (BMI 35.0-39.9 without comorbidity) E66.01 [place] [address] [place] [address] 10191- 0522 15 Mar, 2015 Obesity (BMI 35.0-39.9 without comorbidity) E66.01 [place] [address] [place] [address] 16795- 8783 15 Mar, 2015 [place] [address] [place] [address] 04132- 3733 08 Mar, 2015 Headache R51 [place] [address] [place] [address] 09841- 4500 Mar, [place] [address] [place] [address] 96383- 5816 07 Mar, 2015 Obesity (BMI 35.0-39.9 without comorbidity) E66.01 [place] [address] [place] [address] 27004- 3407 06 Mar, 2015 [address] [address] [place] [address] 97108- 3898 Feb, General medical exam Z00.00 ; Hirsutism L68.0 ; Obesity ( BMI 35.0-39.9 without comorbidity) E66.01 ; Family history of hyperlipidemia Z83.49 and Family history of heart disease Z82.49 [place] [address] [place] [address] 16630- 0101 29 Feb, 2015 General medical exam Z00.00 ; Hirsutism L68.0 ; Obesity ( BMI 35.0-39.9 without comorbidity) E66.01 ; Family history of ovarian cancer Z80.41 ; Family history of malignant neoplasm of endometrium Z80.49 ; Family history of hyperlipidemia Z83.49 and Family history of heart disease Z82.49 [place] [address] [address] 37[address] Dec, Headache R51 [place] [address] [place] [address] 331571- 7045 Dec, Headache R51 [address] [address] [place] [address] 88167- 4771 Dec, Headache R51 [place] [id number] [place] [address] 351568- 6819 Dec, Acute pansinusitis, unspecified J01.40 and Acute upper respiratory infection, unspecified J06.9 [place] [id number] [place] [address] 98490- 7687 Dec, Encounter for immunization Z23 [place] [address] [place] [address] 47923- 0135 Nov, Cellulitis 682.9 IMMUNIZATIONS No Known Immunizations SOCIAL HISTORY Never Assessed REASON FOR VISIT Contrave PLAN OF CARE VITAL SIGNS MEDICATIONS Medication Instructions Dosage Frequency Start Date End Date Duration Status Diethylpropion HCl ER 75 MG Orally Once a day 1 tablet 24h Sep, Active RESULTS No Results PROCEDURES No Known procedures INSTRUCTIONS MEDICATIONS ADMINISTERED No Known Medications MEDICAL (GENERAL) HISTORY Type Description Date Medical History plantar fasciitis left [address] Barber and got an injection Surgical History DNC May 2016 Hospitalization History Cellulitis Left Knee 2007 Hospitalization History ER visit--left sided numbness 2016
--- OUTSIDE RECORDS SUMMARY | 2017-10-24 19:06 | XMS REPORT ---
Author Author BUSTER BREWER [facility] Address [address] [place] [address] Care Team Providers Care Marketing [employer] Name Role Phone BUSTER BREWER Unavailable PROBLEMS Type Condition ICD9-CM Code MMM98-HI Code Onset Dates Condition Status SNOMED Code Problem Obesity (BMI 35.0-39.9 without comorbidity) E66.01 Active 751691756 Problem General medical exam Z00.00 Active 265131670 Problem Hirsutism L68.0 Active 615946549 Problem Family history of heart disease Z82.49 Active 941126392 Problem Family history of hyperlipidemia Z83.49 Active 089636226 Problem Family history of malignant neoplasm of endometrium Z80.49 Active 040840160343739 Problem Family history of ovarian cancer Z80.41 Active 171272359 Problem Less than 8 weeks gestation of Z3A.01 Active 47776889 Problem Bleeding in early O20.9 Active 97446179 Problem Seasonal allergic rhinitis, unspecified allergic rhinitis trigger J30.2 Active 646147204 Problem Overweight E66.3 Active 921761750 Problem Desire for Z31.9 Active 319875933 Problem Anxiety F41.9 Active 95059546 ALLERGIES Unknown Allergies SOCIAL HISTORY No smoking Hx information available PLAN OF CARE VITAL SIGNS MEDICATIONS Unknown Medications RESULTS Name Result Date Reference Range HCG, QUANTITATIVE 2016-03-28 hCG,Beta Subunit,Qnt,Serum <1 PROCEDURES Procedure Date Ordered Related Diagnosis Body Site CHORIONIC GONADOTROPIN TEST Mar 28, 2016 VENIPUNCT, ROUTINE* Mar 28, 2016 IMMUNIZATIONS No Known Immunizations
--- OUTSIDE RECORDS SUMMARY | 2017-10-24 19:06 | XMS REPORT ---
Author Author BUSTER BREWER Organization [facility] Address [address] [place] [address] Care Team Providers Care Manager Solution Name Role Phone BUSTER BREWER Unavailable PROBLEMS Type Condition ICD9-CM Code YFR91-ZU Code Onset Dates Condition Status SNOMED Code Problem Family history of malignant neoplasm of endometrium Z80.49 Active 261105879557042 Problem Obesity (BMI 35.0-39.9 without comorbidity) E66.01 Active 425656375 Problem Family history of heart disease Z82.49 Active 032112557 Problem Family history of hyperlipidemia Z83.49 Active 562919610 Problem Family history of ovarian cancer Z80.41 Active 090454104 Problem Gingivitis K05.10 Active 81005923 Problem Anxiety F41.9 Active 59496463 Problem Overweight E66.3 Active 097827324 Problem Hirsutism L68.0 Active 256325627 Problem Desire for Z31.9 Active 759626336 Problem Seasonal allergic rhinitis, unspecified allergic rhinitis trigger J30.2 Active 336897742 ALLERGIES No Information ENCOUNTERS Encounter Location Date Diagnosis [facility] [id number] [place] [address] 73792- 3996 Jun, Dental examination Z01.20 and Gingivitis K05.10 [facility] [id number], [place] [address] Jun, [facility] [id number] [place] [address] 04950- 7000 Feb, [facility] [id number] [place] [address] 83386 -2784 Jan, Other viral agents as the cause of diseases classified elsewhere B97.89 and Acute upper respiratory infection, unspecified J06.9 [facility] [id number], [place] [address]- 4834 02 Dec, 2016 Encounter for immunization Z23 [facility] [address] [place] [address] 41064- 2864 18 Nov, 2016 Left foot pain M79.672 [facility] [address], [place] [address]- 5266 14 Nov, 2016 Dental examination Z01.20 [facility] [address] [place] [address] 02645- 2785 Sep, [facility] [address] [place] [address] 49106- 9418 Sep, Over weight E66.3 [facility] [address] [place] [address] 39893- 4471 Sep, Over weight E66.3 [facility] [address] [place] [address] 51790- 7036 Aug, Over weight E66.3 [facility] [id number] [address] July, Needle stick injury W27.3XXA [facility] [address] [place] [address] 25172 -8535 July, Needle stick injury W27.3XXA [facility] [address], [place] [address]- 8088 July, Screening for tuberculosis Z11.1 and Visit for TB skin test Z11.1 [facility] [address], [place] [address]- 1754 July, Over weight E66.3 [facility] [address] [place] [address] 07040- 0342 Jun, Dental examination Z01.20 [facility] [address], [place] [address]- 3983 Jun, Encounter for immunization Z23 [facility] [id number] [place] [address] 13550 -3231 20 Apr, 2016 Gastroenteritis K52.9 [facility] [address] 21094- 3524 14 Apr, 2016 Cough R05 and Acute nasopharyngitis J00 [facility] [address] 27653- 2386 Mar, Less than 8 weeks gestation of Z3A.01 [facility] [address] 54667- 2746 Feb, Less than 8 weeks gestation of Z3A.01 and Bleeding in early O20.9 [place] [address] 71425- 5165 Feb, Dental examination Z01.20 [place] [address] 45785- 3612 Feb, Dental examination Z01.20 [facility] [address] [id number] Feb, Dental examination Z01.20 [facility] [address] 00922- 1483 Jan, [facility] [address] 71434- 2866 Jan, Desire for Z31.9 ; General medical exam Z00.00 and Anxiety F41.9 [facility] [id number] [place] [address] 74439- 1660 Jan, Encounter for immunization Z23 [facility] [address] 95398- 5322 Nov, [facility] [address] 97895- 8041 Nov, [facility] [address] 15008- 4832 Nov, [place] [id number] [place] [address] 36436- 1710 31 Oct, 2015 Seasonal allergic rhinitis, unspecified allergic rhinitis trigger J30.2 and Overweight E66.3 [place] [id number] [place] [address] 01903- 2334 22 Oct, 2015 Left foot pain M79.672 [place] [address] [place] [address] 26319- 2730 09 Apr, 2015 Hirsutism L68.0 and Obesity (BMI 35.0-39.9 without comorbidity) E66.01 [place] [address] 69470- 3254 15 Mar, 2015 Obesity (BMI 35.0-39.9 without comorbidity) E66.01 [place] [id number] [place] [address] 64364- 4617 15 Mar, 2015 [place] [id number] [place] [address] 65521- 4250 Mar, Headache R51 [place] [id number] [place] [address] 79700- 3699 08 Mar, 2015 [place] [id number] [place] [address] 47051- 4924 Mar, Obesity (BMI 35.0-39.9 without comorbidity) E66.01 [place] [id number] [place] [address] 40354- 3198 06 Mar, 2015 [place] [id number] [place] [address] 26178- 5483 Feb, General medical exam Z00.00 ; Hirsutism L68.0 ; Obesity ( BMI 35.0-39.9 without comorbidity) E66.01 ; Family history of hyperlipidemia Z83.49 and Family history of heart disease Z82.49 [place] [address] [place] [address] 91219- 3126 29 Feb, 2015 General medical exam Z00.00 ; Hirsutism L68.0 ; Obesity ( BMI 35.0-39.9 without comorbidity) E66.01 ; Family history of ovarian cancer Z80.41 ; Family history of malignant neoplasm of endometrium Z80.49 ; Family history of hyperlipidemia Z83.49 and Family history of heart disease Z82.49 [place] [id number] [place] [address] 96191- 1809 Dec, Headache R51 [place] [address] 896214- 4121 Dec, Headache R51 [place] [address] 86429- 9623 Dec, Headache R51 [place] [address] 83225- 2977 Dec, Acute pansinusitis, unspecified J01.40 and Acute upper respiratory infection, unspecified J06.[address] 14826- 8877 Dec, Encounter for immunization Z23 [id number] [place] [address] 93266- 2021 Nov, Cellulitis 682.9 IMMUNIZATIONS No Known Immunizations SOCIAL HISTORY Never Assessed REASON FOR VISIT eye exam PLAN OF CARE VITAL SIGNS MEDICATIONS Unknown [...]
--- OUTSIDE RECORDS SUMMARY | 2017-10-24 19:06 | XMS REPORT ---
Author Author EL LIM [facility] Address [address] [place] [address] Care Team Providers Care Dressing Machine Operator Name Role Phone EL LIM Unavailable PROBLEMS Type Condition ICD9-CM Code ISW84-IC Code Onset Dates Condition Status SNOMED Code Problem Family history of malignant neoplasm of endometrium Z80.49 Active 009820180708251 Problem Family history of hyperlipidemia Z83.49 Active 564336848 Problem Hirsutism L68.0 Active 556192705 Problem General medical exam Z00.00 Active 437652796 Problem Family history of heart disease Z82.49 Active 883640108 Problem Obesity (BMI 35.0-39.9 without comorbidity) E66.01 Active 312607307 Problem Family history of ovarian cancer Z80.41 Active 718225579 Problem Less than 8 weeks gestation of Z3A.01 Active 41357451 Problem Bleeding in early O20.9 Active 86149823 Problem Overweight E66.3 Active 126218315 Problem Seasonal allergic rhinitis, unspecified allergic rhinitis trigger J30.2 Active 735593533 Problem Anxiety F41.9 Active 15732996 Problem Desire for Z31.9 Active 756830625 ALLERGIES Unknown Allergies SOCIAL HISTORY No smoking Hx information available PLAN OF CARE Activity Details Follow Up prn Reason:recare VITAL SIGNS MEDICATIONS Unknown Medications RESULTS No Results PROCEDURES Procedure Date Ordered Related Diagnosis Body Site AMALGAM-TWO SURFACES PRIMARY/PERM Mar 17, 2016 Billing Notes on claim Mar 17, 2016 [employer] Employee/Board adjustment Mar 17, 2016 IMMUNIZATIONS No Known Immunizations
--- OUTSIDE RECORDS SUMMARY | 2017-10-24 19:06 | XMS REPORT ---
Author Author BUSTER BREWER [facility] Address [address] [place] [address] Care Team Providers Care Linen Checker Name Role Phone BUSTER BREWER Unavailable PROBLEMS Type Condition ICD9-CM Code IBE57-MP Code Onset Dates Condition Status SNOMED Code Problem Family history of ovarian cancer Z80.41 Active 773254136 Problem Family history of heart disease Z82.49 Active 879043120 Problem Family history of malignant neoplasm of endometrium Z80.49 Active 846983841759661 Problem Family history of hyperlipidemia Z83.49 Active 775898773 Problem Anxiety F41.9 Active 07687163 Problem Desire for Z31.9 Active 206119171 Problem Hirsutism L68.0 Active 239041273 Problem Obesity (BMI 35.0-39.9 without comorbidity) E66.01 Active 369074780 Problem Overweight E66.3 Active 395444082 Problem Seasonal allergic rhinitis, unspecified allergic rhinitis trigger J30.2 Active 933863072 ALLERGIES No Known Allergies SOCIAL HISTORY Never Assessed PLAN OF CARE Activity Details Follow Up 4 Weeks Reason:weight VITAL SIGNS Height 70 in 2016-07-26 Weight 273 lbs 2016-07-26 Temperature 98.9 degrees Fahrenheit 2016-07-26 Heart Rate 82 bpm 2016-07-26 Respiratory Rate 18 2016-07-26 BMI 39.17 kg/m2 2016-07-26 Blood pressure systolic 132 mmHg 2016-07-26 Blood pressure diastolic 86 mmHg 2016-07-26 MEDICATIONS Medication Instructions Dosage Frequency Start Date End Date Duration Status Contrave 8-90 MG Orally 1 tablet daily x 7 days then Twice a day 1 tablet July, July, 28 days Active RESULTS No Results PROCEDURES No Known procedures IMMUNIZATIONS No Known Immunizations MEDICAL (GENERAL) HISTORY Type Description Date Medical History plantar fasciitis left [address] Barber and got an injection Surgical History DNC May 2016 Hospitalization History Cellulitis Left Knee 2007 Hospitalization History ER visit--left sided numbness 2015
--- OUTSIDE RECORDS SUMMARY | 2017-10-24 19:06 | XMS REPORT ---
Author Author BUSTER BREWER [facility] Address [address] [place] [address] Care Team Providers Care Cleaning Handyman Name Role Phone BUSTER BREWER Unavailable PROBLEMS Type Condition ICD9-CM Code SAI35-EJ Code Onset Dates Condition Status SNOMED Code Problem Obesity (BMI 35.0-39.9 without comorbidity) E66.01 Active 994995977 Problem General medical exam Z00.00 Active 453546120 Problem Hirsutism L68.0 Active 885140265 Problem Family history of heart disease Z82.49 Active 073353650 Problem Family history of hyperlipidemia Z83.49 Active 814789865 Problem Family history of malignant neoplasm of endometrium Z80.49 Active 597615167413814 Problem Family history of ovarian cancer Z80.41 Active 431600080 Problem Less than 8 weeks gestation of Z3A.01 Active 01247483 Problem Bleeding in early O20.9 Active 02781892 Problem Seasonal allergic rhinitis, unspecified allergic rhinitis trigger J30.2 Active 431350897 Problem Overweight E66.3 Active 489725852 Problem Desire for Z31.9 Active 582813095 Problem Anxiety F41.9 Active 61441679 ALLERGIES Unknown Allergies SOCIAL HISTORY No smoking Hx information available PLAN OF CARE VITAL SIGNS MEDICATIONS Unknown Medications RESULTS Name Result Date Reference Range HCG, QUANTITATIVE 2016-03-24 Specimen Identification Status hCG,Beta Subunit,Qnt,Serum PROCEDURES Procedure Date Ordered Related Diagnosis Body Site CHORIONIC GONADOTROPIN TEST Mar 24, 2016 IMMUNIZATIONS No Known Immunizations
--- OUTSIDE RECORDS SUMMARY | 2017-10-24 19:06 | XMS REPORT ---
Author Author BUSTER BREWER [facility] Address [address] [place] [address] Care Team Providers Care Vegetable I Farmworker Name Role Phone BUSTER BREWER Unavailable PROBLEMS Type Condition ICD9-CM Code SFY75-YW Code Onset Dates Condition Status SNOMED Code Problem Family history of ovarian cancer Z80.41 Active 829776127 Problem Family history of heart disease Z82.49 Active 480681659 Problem Family history of malignant neoplasm of endometrium Z80.49 Active 538178779749206 Problem Family history of hyperlipidemia Z83.49 Active 395840909 Problem Anxiety F41.9 Active 99475283 Problem Desire for Z31.9 Active 234144299 Problem Hirsutism L68.0 Active 525750211 Problem Obesity (BMI 35.0-39.9 without comorbidity) E66.01 Active 211846167 Problem Overweight E66.3 Active 565829553 Problem Seasonal allergic rhinitis, unspecified allergic rhinitis trigger J30.2 Active 147386465 ALLERGIES No Information SOCIAL HISTORY Never Assessed PLAN OF CARE Activity Details Follow Up 48-72 hours Reason: VITAL SIGNS MEDICATIONS Unknown Medications RESULTS No Results PROCEDURES Procedure Date Ordered Result Body Site TB INTRADERMAL 2016-08-03 Negative TB INTRADERMAL TEST August 03, 2016 IMMUNIZATIONS No Known Immunizations MEDICAL (GENERAL) HISTORY Type Description Date Medical History plantar fasciitis left [address] aBrber and got an injection Surgical History DNC May 2016 Hospitalization History Cellulitis Left Knee 2007 Hospitalization History ER visit--left sided numbness 2016
[2017-10-24 19:43] VITALS: BP 131/68
[2017-10-24] MEDS ORDERED: D5 LR IV SOLUTION 1,000 ML IV ONE (19:53)
[2017-10-24] MEDS ORDERED: MISOPROSTOL 100 MCG (CYTOTEC) TAB PO NR (20:00)
[2017-10-24] MEDS ORDERED: MINERAL OIL CONCENTRATE 99.9% 15 ML UDC TOP PRN (20:00)
[2017-10-24] MEDS: D5 LR IV SOLUTION 1,000 ML IV SCH (20:18)
[2017-10-24 20:35] VITALS: BP 127/82
[2017-10-24 20:51] LABS: BASOPHILS % (AUTO) 0 % (0-10); EOSINOPHILS % (AUTO) 0 % (0-10); HEMATOCRIT 31 % (35-52); LYMPHOCYTES # (AUTO) 1.7 X 10^3 (1.0-4.0); LYMPHOCYTES % (AUTO) 20 % (12-44); MEAN CORPUSCULAR HEMOGLOBIN 25 PG (25-34); MEAN CORPUSCULAR HGB CONC 33 G/DL (32-36); MEAN CORPUSCULAR VOLUME 75 FL (80-99); MEAN PLATELET VOLUME 11.2 FL (7.4-10.4); MONOCYTES # (AUTO) 0.8 X 10^3 (0.0-1.0); MONOCYTES % (AUTO) 9 % (0-12); NEUTROPHILS # (AUTO) 6.1 X 10^3 (1.8-7.8); NEUTROPHILS % (AUTO) 71 % (42-75); PLATELET COUNT 218 10^3/uL (130-400); RED BLOOD COUNT 4.07 10^6/uL (4.35-5.85); RED CELL DISTRIBUTION WIDTH 16.2 % (10.0-14.5); WHITE BLOOD COUNT 8.7 10^3/uL (4.3-11.0)
[2017-10-24 21:10] VITALS: BP 134/77
[2017-10-24 21:10] LABS: ALANINE AMINOTRANSFERASE 10 U/L (0-55); ALBUMIN 3.3 GM/DL (3.2-4.5); ALKALINE PHOSPHATASE 129 U/L (40-136); BILIRUBIN,TOTAL 0.3 MG/DL (0.1-1.0); BUN/CREATININE RATIO 8; CALCIUM 9.2 MG/DL (8.5-10.1); CARBON DIOXIDE 16 MMOL/L (21-32); CHLORIDE 106 MMOL/L (98-107); CREATININE SERUM 0.62 MG/DL (0.60-1.30); GFR ESTIMATED > 60; GLUCOSE 102 MG/DL (70-105); POTASSIUM 4.1 MMOL/L (3.6-5.0); SODIUM 135 MMOL/L (135-145); TOTAL PROTEIN 6.4 GM/DL (6.4-8.2)
[2017-10-24 22:40] VITALS: BP 145/67
[2017-10-24 23:45] VITALS: BP 141/92
[2017-10-25] VITALS (66 sets, daily range): BP systolic 91–185; BP diastolic 53–117
[2017-10-25] MEDS ORDERED: MISOPROSTOL 100 MCG (CYTOTEC) TAB PO SCH
[2017-10-25] MEDS: D5 LR IV SOLUTION 1,000 ML IV SCH ×3 (03:35→15:30)
[2017-10-25] MEDS ORDERED: AMPICILLIN INJECTION 2,000 MG in NS (IVPB) 50 ML IV SCH (06:39)
[2017-10-25] MEDS ORDERED: AMPICILLIN 2000 MG INJECTION (IM/IV) ONE (06:53)
[2017-10-25] MEDS ORDERED: NS (IVPB) 50 ML ONE ×2 (06:54→19:25)
[2017-10-25] MEDS ORDERED: OXYTOCIN/NORMAL SALINE 500 ML IV SCH (08:22)
--- NOTE | 2017-10-25 08:22 | History & Physical-OB ---
OB - Chief Complaint & HPI Date/Time Date of Admission: Date of Admission: Oct 24, 2017 at 6:56 pm Time Seen by Provider: 08:00 Chief Complaint/History OB-Reason for Admission/Chief: Induction of Labor Hx : 3 Hx Para: 0 Expected Date of Delivery: Oct 27, 2017 Gestational Age in Weeks: 39 Gestational Age in Days: 5 Admission Nurse Assessment Rev: Yes History of Labs A pos Antibody neg RI RPR NR HBsAg NR HIV NR GC neg GBS + Allergies and Home Medications Allergies Coded Allergies: No Known Drug Allergies (Unverified , 06/09/16) Home Medications Aspirin 81 Mg Tablet.dr, 81 MG PO DAILY, (Reported) Folic Acid 0.8 Mg Capsule, 0.8 MG PO DAILY, (Reported) Bnu359/FA/Omega3/Dha/Fish Oil 1 Each Tab.chew, 2 EACH PO DAILY, (Reported) Patient Home Medication List Home Medication List Reviewed: Yes OB - History Hx of Present Care: Yes Ultrasounds: Normal mid trimester US Obstetrical Complications: Gestational Hypertension (transient) Medical Complications: None Delivery History Hx Blood Disorders: No Patient Past Medical History n/a Social History/Family History Recent Infectious Disease Expo: No Alcohol Use: Denies Use Recreational Drug Use: No Immunizations Hepatitis A: Yes Hepatitis B: Yes Date of Influenza Vaccine: Jan 10, 2016 OB - Admission Exam Physical Exam Vitals: Vital Signs 10/25/17 10/25/17 03:40 06:10 Temp 98.3 Pulse 68 Resp 18 B/P (MAP) 138/78 (98) HEENT: NCAT Heart: Rhythm Normal Lungs: Clear Abdomen: Gravid Extremities: Normal Reflexes: Normal Cervical Dilatation: Fingertip Effacement: 75% Station: -2 Membranes: Intact Heart Rate: 130's Accelerations: Accelerations Present Decelerations: No Decelerations Short Term Variability: Present Nursing Home Variability: Average (6-25) Contractions on Admission: 6-10 Minutes Apart Intensity: Mild Rolle Scoring Tool (Modified) Dilation (cm): 1-2cm (1) Effacement (%): 51-79% (2) Descent/Station: -2 (1) Cervix Consistency: Soft (2) Cervix Position: Middle/Mid-Position (1) Rolle Score: 6 Labs Laboratory Tests Test 10/24/17 20:10 Range/Units White Blood Count 8.7 4.3-11.0 10^3/uL Red Blood Count 4.07 L 4.35-5.85 10^6/uL Hemoglobin 10.0 L 11.5-16.0 G/DL Hematocrit 31 L 35-52 % Mean Corpuscular Volume 75 L 80-99 FL Mean Corpuscular Hemoglobin 25 25-34 PG Mean Corpuscular Hemoglobin Concent 33 32-36 G/DL Red Cell Distribution Width 16.2 H 10.0-14.5 % Platelet Count 218 130-400 10^3/uL Mean Platelet Volume 11.2 H 7.4-10.4 FL Neutrophils (%) (Auto) 71 42-75 % Lymphocytes (%) (Auto) 20 12-44 % Monocytes (%) (Auto) 9 0-12 % Eosinophils (%) (Auto) 0 0-10 % Basophils (%) (Auto) 0 0-10 % Neutrophils # (Auto) 6.1 1.8-7.8 X 10^3 Lymphocytes # (Auto) 1.7 1.0-4.0 X 10^3 Monocytes # (Auto) 0.8 0.0-1.0 X 10^3 Eosinophils # (Auto) 0.0 0.0-0.3 10^3/uL Basophils # (Auto) 0.0 0.0-0.1 10^3/uL Sodium Level 135 135-145 MMOL/L Potassium Level 4.1 3.6-5.0 MMOL/L Chloride Level 106 98-107 MMOL/L Carbon Dioxide Level 16 L 21-32 MMOL/L Anion Gap 13 5-14 MMOL/L Blood Urea Nitrogen 5 L 7-18 MG/DL Creatinine 0.62 0.60-1.30 MG/DL Estimat Glomerular Filtration Rate > 60 BUN/Creatinine Ratio 8 Glucose Level 102 70-105 MG/DL Calcium Level 9.2 8.5-10.1 MG/DL Total Bilirubin 0.3 0.1-1.0 MG/DL Aspartate Amino Transf (AST/SGOT) 20 5-34 U/L Alanine Aminotransferase (ALT/SGPT) 10 0-55 U/L Alkaline Phosphatase 129 40-136 U/L Total Protein 6.4 6.4-8.2 GM/DL Albumin 3.3 3.2-4.5 GM/DL OB - Assessment/Plan/Diagnosis Assessment Assessment: induction of labor Admission Dx 26 yo @ 39.5 Transient GHTN BMI 47 GBS + Admission Status: Inpatient Order (span 2 midnights) Reason for Inpatient Admission: Induction of labor Plan Plan: Induction Induction Method: per Misoprostol Protocol MARIANNE GRAHAM DO Oct 25, 2017 8:22 am
[2017-10-25] MEDS: CATHETER FLUSH 10 ML SYR IV SCH ×3 (11:00→23:57)
[2017-10-25] MEDS: AMPICILLIN INJECTION 1,000 MG in NS (IVPB) 50 ML IV SCH ×3 (11:03→18:52)
[2017-10-25] MEDS ORDERED: SUFENTA 0.6MCG/ML BUPIVA 0.125 100 ML ONE (13:25)
[2017-10-25] MEDS ORDERED: LACTATED RINGERS 1,000 ML IV SCH (14:18)
[2017-10-25] MEDS ORDERED: diphenhydrAMINE 50 MG/ML INJ (BENADRYL) IV PRN (14:30)
[2017-10-25] MEDS ORDERED: ONDANSETRON 4 MG/2 ML (SDV) Z0FRAN IV PRN (14:30)
[2017-10-25] MEDS ORDERED: NALOXONE 0.4 MG/ML 1 ML (NARCAN) VIAL IV PRN ×2 (14:30)
[2017-10-25] MEDS ORDERED: METOCLOPRAMIDE INJ 10 MG/2 ML (REGLAN) IV PRN (14:30)
[2017-10-25] MEDS ORDERED: EPIDURAL (SUFENTA 0.6MCG/ML BUPIVA 0.125%) 100 ML BAG EPI SCH (14:30)
[2017-10-25] MEDS ORDERED: BUPIVACAINE 0.5% 30 ML (SENSORCAINE) VIAL ONE ×2 (17:00→20:50)
[2017-10-25] MEDS ORDERED: fentaNYL INJECTION 100 MCG/2 ML AMP ONE ×2 (17:00→20:52)
[2017-10-25] MEDS ORDERED: LIDOCAINE PF 2% 5 ML (XYLOCAINE) VIAL ONE ×2 (17:00→20:48)
[2017-10-25] MEDS ORDERED: OXYTOCIN/NORMAL SALINE 0 ML IV ONE (17:03)
[2017-10-25] MEDS ORDERED: DEXAMETHASONE 10 MG/ML (DECADRON) 1 ML VIAL ONE ×2 (17:03→20:48)
[2017-10-25] MEDS ORDERED: ONDANSETRON 4 MG/2 ML (SDV) Z0FRAN ONE ×2 (17:03→20:48)
[2017-10-25] MEDS ORDERED: raNItidine 50 MG/2 ML INJ (ZANTAC) ONE ×2 (19:23→19:25)
[2017-10-25] MEDS ORDERED: CITRIC ACID/SOB CIT (BICITRA) 30 ML UDC ONE (19:23)
[2017-10-25] MEDS ORDERED: ceFAZolin 2 GM IV Premixed 50 ML ONE (19:25)
--- NOTE | 2017-10-25 20:40 | Progress Note-Standard ---
Standard Progress Note Progress Notes/Assess & Plan Date Seen by Provider: Oct 25, 2017 Time Seen by Provider: 20:35 Progress/Assessment & Plan This 26 yo female was brought in for induction of labor yesterday night for GHTN >39 weeks. Her cervix was unfavorable, closed and thick, and the patient was given cervical ripening agent overnight in the form of misoprostol 100 mcg PO followed by 50 q 4 hrs. She may progress to 1 cm dilatation, where I was able to perform AROM, and Pitocin augmentation was started. The patient recieved an epidural and pitocin was increased throughout the day to a max dose of 20mu, at which point the patient had still made no cervical change. Due to failure to progress after over 12 hrs of pitocin augmentation and 24 hrs of induction. We discussed proceeding with pitocin and realized this may be futile. Risk of proceeding vs going forth with was reviewed with the patient in detail with her family/ present. After all questions were answered she was agreeable to proceed with PLTCS. Will await OR staff arrive to proceed with delivery. MARIANNE GRAHAM DO Oct 25, 2017 20:40
[2017-10-25] MEDS ORDERED: ceFAZolin 2 GM IV Premixed 50 ML IV ONE (20:45)
[2017-10-25] MEDS ORDERED: OXYTOCIN/NORMAL SALINE 500 ML IV ONE ×2 (20:48)
[2017-10-25] MEDS ORDERED: LACTATED RINGERS 1,000 ML IV PRN (20:52)
[2017-10-25] MEDS ORDERED: KETOROLAC 30 MG/ML VIAL IVP SCH (21:00)
[2017-10-25] MEDS ORDERED: HYDROmorphone 1 MG/ML (DILAUDID) 1 ML SYRINGE IV PRN (21:00)
[2017-10-25] MEDS ORDERED: IBUPROFEN 600 MG (MOTRIN) TAB PO SCH (21:00)
[2017-10-25] MEDS ORDERED: CITRIC ACID/SOB CIT (BICITRA) 30 ML UDC PO ONE (21:00)
[2017-10-25] MEDS ORDERED: ONDANSETRON 4 MG/2 ML (SDV) Z0FRAN IVP PRN (21:00)
[2017-10-25] MEDS ORDERED: raNItidine INJECTION 50 MG in NS (IVPB) 50 ML IV ONE (21:00)
[2017-10-25] MEDS ORDERED: METOCLOPRAMIDE INJ 10 MG/2 ML (REGLAN) IV ONE (21:00)
[2017-10-25] MEDS ORDERED: TETANUS,DIPTH,PERTUSS P/F (BOOSTRIX) 0.5 ML VIAL IM SCH (21:00)
[2017-10-25] MEDS ORDERED: MEASLES,MUMPS,RUBELLA 1 EA INJ SC SCH (21:00)
[2017-10-25] MEDS ORDERED: HYDROcodone/APAP 5 MG/325 MG (LORTAB) TAB PO PRN (21:00)
--- NOTE | 2017-10-25 21:01 | Discharge Inst-Women's Service ---
Discharge Inst-Women's Serv Depart Medication/Instructions New, Converted or Re-Newed RX: RX on Chart Consults/Follow Up Additional Follow Up: Yes Orders/Referrals Dr. Morrison in 7-10 days and in 6 weeks Activity Activity: Activity as Tolerated Driving Instructions: No Driving for 1 Week NO SMOKING: NO SMOKING Nothing Inside Vagina: No Douching, No Panther Burn, No Tampons Diet Discharge Diet: No Restrictions Symptoms to Report to : Bleeding Excessive, Pain Increased, Fever Over 101 Degrees F, Vaginal Bleeding Increase, Questions/Concerns For Any Problems or Questions: Contact Your Physician Skin/Wound Care Infection Signs and Symptoms: Increased Redness, Foul Odor of Wound, Increased Drainage, Skin Itchy or Has a Rash, Increased Swelling, Temperature Above 101 F Operative Area Clean and Dry: Keep Incision Clean/Dry Stitches/Andrew/Dermabond: Dermabond, Care of Stitches Bathing Instructions: MARIANNE Washington DO Oct 25, 2017 9:01 pm
[2017-10-25] MEDS ORDERED: ACHD5005 PO (21:03)
[2017-10-25] MEDS ORDERED: IBUP-844 PO (21:03)
[2017-10-25] MEDS ORDERED: DOCU100C37 PO (21:03)
[2017-10-25] MEDS ORDERED: CARBOPROST (HEMABATE) 250 MCG/ML AMP IM ONE (21:32)
[2017-10-25] MEDS: DOCUSATE SODIUM 100 MG (COLACE) CAP PO SCH (23:48)
[2017-10-25] MEDS ORDERED: D5 LR IV SOLUTION 0 ML IV ONE (23:54)
[2017-10-25] MEDS: OXYTOCIN/NORMAL SALINE 500 ML IV SCH (23:59)
[2017-10-26] MEDS: OXYTOCIN/NORMAL SALINE 500 ML IV SCH (00:15)
[2017-10-26] MEDS: KETOROLAC 30 MG/ML VIAL IVP SCH ×3 (00:16→12:50)
[2017-10-26 00:23] VITALS: BP 125/88
--- NOTE | 2017-10-26 01:00 | OPERATIVE REPORT ---
DATE OF SERVICE: PREOPERATIVE DIAGNOSES: 1. A 26-year-old G3, P0, at 39 weeks' gestation. 2. Gestational hypertension. 3. Failure to progress. POSTOPERATIVE DIAGNOSES: 1. A 26-year-old G3, P0, at 39 weeks' gestation. 2. Gestational hypertension. 3. Failure to progress. PROCEDURE: Primary low transverse section. SURGEON: Tony Morrison DO ANESTHESIA: Epidural, which was bolused. ESTIMATED BLOOD LOSS: 500 mL. URINE OUTPUT: 700 mL clear at the end of the procedure. FLUIDS: 1400 mL of lactated Ringer's solution. FINDINGS: A grossly normal appearing uterus, bilateral fallopian tubes and ovaries. Live male infant with Apgars of 8 and 9, weighing 9 pounds 3 ounces. SPECIMENS SENT: Placenta. INDICATIONS FOR PROCEDURE: A 26-year-old female who was brought in for induction due to gestational hypertension despite unfavorable cervix. Please see my preoperative note for complete details pertaining to the indication for . The patient was then taken to the operating room. OPERATIVE REPORT IN DETAIL: Once in the operating room, epidural analgesia was found to be adequate, placed in supine position with a leftward tilt, prepped and draped in normal sterile fashion. A Pfannenstiel skin incision was made with a knife and carried down to the underlying fascia using Bovie cautery. Fascial incision extended laterally using Bovie cautery. Superior aspect of the fascial incision was then grasped with Naseem clamps, tented up and dissected off the underlying rectus muscles. The inferior aspect of the fascial incision was then grasped with Naseem clamps, tented up and dissected off the underlying rectus muscles. The rectus muscle was then dissected down the midline using Chopra scissors, which exposed the peritoneum, which were entered bluntly and extended using blunt traction. An Geoffrey ring retractor was placed in the peritoneal incision, which offered excellent lateral sidewall retraction. I then identified the lower uterine segment, which was found to be thinned out and make an incision to the vesicouterine peritoneum and bluntly dissected off the lower uterine segment creating a bladder flap. I then proceed with myotomy. The membranes were visualized, at which point I extended the uterine incision superolaterally and superiorly using bandage scissors. Rupture of membranes had already performed and clear fluid was still noted at the time of my entry. The infant was found in the vertex presentation. The surgeon's hand was placed beneath the 's head. With gentle fundal pressure, the 's head was elevated up to the incision where it is delivered through the incision. Bulb suction of the nares and oropharynx takes place. I then delivered the anterior, posterior shoulder and the infant was then brought to the operative field where the cord was doubly clamped and cut and infant was handed off to Dr. Sotomayor who present for delivery. Cord blood was collected. Three-vessel cord was intact. Placenta was delivered spontaneously thereafter. IV Pitocin was initiated to facilitate uterine contraction. Uterine fundus was confirmed by manual massage. The uterus was then exteriorized and cleared of all endometrial clots and debris. I then proceeded with closing the uterine incision using 0 Vicryl suture in a running locked fashion, second layer of imbricating 0 Monocryl was placed. Excellent hemostasis was noted after doing so. There was some residual bogginess despite Pitocin administration, so I have been given 250 mcg of Hemabate IM, which has a good response in uterine tone. I then placed the uterus back within the pelvis and copiously irrigated the pelvis using normal saline and once again, no active bleeding noted from any of my dissection planes. I placed Interceed antiadhesive over my low transverse incision, proceeded with closing the peritoneum using 3-0 Vicryl suture in a running fashion. The rectus muscle was reapproximated using 3-0 Vicryl suture in interrupted fashion. The fascia was reapproximated using 0 Vicryl suture in running fashion. Subcutaneous tissue was reapproximated using 3-0 plain in interrupted subcutaneous stitch and the skin was reapproximated using 4-0 Monocryl in a running subcuticular. Dermabond was applied to incision, a sterile dressing with adhesive white tape. The patient tolerated the procedure well and was taken to recovery area in stable condition. Lap and sponge count were correct at the end of procedure. Instrument counts were correct as well. A 2 grams of Ancef were given preoperatively for infection prophylaxis. Job ID: [id number] DocumentID: [id number] Dictated Date: 10/25/2017 22:04:22 District Manager In Training Date: 10/26/2017 00:59:52 Dictated By: DO MAKI ALBA
[2017-10-26 04:09] VITALS: BP 121/76
[2017-10-26] MEDS: CATHETER FLUSH 10 ML SYR IV SCH ×3 (06:18→21:41)
[2017-10-26 07:11] LABS: BASOPHILS % (AUTO) 0 % (0-10); EOSINOPHILS % (AUTO) 0 % (0-10); HEMATOCRIT 28 % (35-52); HEMOGLOBIN 9.2 G/DL (11.5-16.0); LYMPHOCYTES % (AUTO) 7 % (12-44); MEAN CORPUSCULAR HEMOGLOBIN 25 PG (25-34); MEAN CORPUSCULAR HGB CONC 34 G/DL (32-36); MEAN CORPUSCULAR VOLUME 73 FL (80-99); MEAN PLATELET VOLUME 11.2 FL (7.4-10.4); MONOCYTES # (AUTO) 0.6 X 10^3 (0.0-1.0); MONOCYTES % (AUTO) 4 % (0-12); NEUTROPHILS # (AUTO) 12.2 X 10^3 (1.8-7.8); NEUTROPHILS % (AUTO) 89 % (42-75); PLATELET COUNT 217 10^3/uL (130-400); RED BLOOD COUNT 3.75 10^6/uL (4.35-5.85); RED CELL DISTRIBUTION WIDTH 15.7 % (10.0-14.5); WHITE BLOOD COUNT 13.8 10^3/uL (4.3-11.0)
[2017-10-26 08:00] VITALS: BP 145/95
--- NOTE | 2017-10-26 08:14 | Postpartum Progress Note ---
Note Note Day # 1 Subjective: Patient is without complaints. Ambulating, voiding. Tolerating a regular diet without nausea or vomiting. Normal lochia. Pain is well controlled with oral pain medications. Objective: Vital Sign - Last 24 Hours 10/25/17 10/25/17 10/25/17 10/25/17 08:30 08:45 09:00 09:15 Pulse 75 75 86 71 Resp 18 18 18 18 B/P (MAP) 132/73 (92) 106/62 (77) 131/84 (100) 123/68 (86) O2 Delivery Room Air Room Air Room Air Room Air 10/25/17 10/25/17 10/25/17 10/25/17 09:30 09:45 10:00 10:15 Pulse 73 67 71 87 Resp 18 18 18 18 B/P (MAP) 135/77 (96) 123/72 (89) 136/79 (98) 137/77 (97) O2 Delivery Room Air Room Air Room Air Room Air 10/25/17 10/25/17 10/25/17 10/25/17 10:30 10:45 11:00 11:15 Temp 97.8 Pulse 83 78 76 81 Resp 18 18 18 18 B/P (MAP) 137/77 (97) 145/117 (126) 157/86 (109) 128/58 (81) O2 Delivery Room Air Room Air Room Air Room Air 10/25/17 10/25/17 10/25/17 10/25/17 11:30 11:45 12:00 12:15 Pulse 93 82 81 83 Resp 18 18 18 18 B/P (MAP) 135/73 (93) 143/86 (105) 147/93 (111) 153/90 (111) O2 Delivery Room Air Room Air Room Air Room Air 10/25/17 10/25/17 10/25/17 10/25/17 12:30 12:45 13:00 13:15 Pulse 83 93 86 100 Resp 18 18 18 20 B/P (MAP) 176/106 (129) 177/93 (121) 185/107 (133) 176/92 (120) O2 Delivery Room Air Room Air Room Air Room Air 10/25/17 10/25/17 10/25/17 10/25/17 13:30 13:45 13:55 14:00 Pulse 80 74 103 95 Resp 20 20 20 20 B/P (MAP) 140/86 (104) 144/83 (103) 134/97 (109) 147/95 (112) Pulse Ox 98 100 O2 Delivery Room Air Room Air Room Air Room Air 10/25/17 10/25/17 10/25/17 10/25/17 14:05 14:10 14:15 14:20 Pulse 81 77 87 80 Resp 20 18 20 18 B/P (MAP) 148/92 (110) 138/90 (106) 129/65 (86) Pulse Ox 98 99 99 98 O2 Delivery Room Air Room Air Room Air Room Air 10/25/17 10/25/17 10/25/17 10/25/17 14:25 14:30 14:45 14:49 Temp 97.8 Pulse 90 78 85 Resp 18 18 18 B/P (MAP) 132/77 (95) 124/74 (91) 129/65 (86) Pulse Ox 98 98 98 O2 Delivery Room Air Room Air Room Air 10/25/17 10/25/17 10/25/17 10/25/17 15:00 15:15 15:30 15:45 Pulse 83 84 81 73 Resp 18 18 18 18 B/P (MAP) 123/78 (93) 117/72 (87) 91/53 (66) Pulse Ox 98 98 98 98 O2 Delivery Room Air Room Air Room Air Room Air 10/25/17 10/25/17 10/25/17 10/25/17 16:00 16:15 16:30 16:45 Pulse 74 75 72 86 Resp 18 18 18 18 B/P (MAP) 94/54 (67) 101/60 (74) 101/65 (77) 116/58 (77) Pulse Ox 97 97 97 98 O2 Delivery Room Air Room Air Room Air Room Air 10/25/17 10/25/17 10/25/17 10/25/17 17:00 17:15 17:30 17:45 Pulse 84 85 91 93 Resp 18 18 18 18 B/P (MAP) 105/70 (82) 109/60 (76) 101/59 (73) Pulse Ox 97 97 97 97 O2 Delivery Room Air Room Air Room Air Room Air 10/25/17 10/25/17 10/25/17 10/25/17 18:00 18:15 18:25 18:30 Temp 97.8 Pulse 82 86 75 Resp 18 18 18 B/P (MAP) 125/71 (89) 132/85 (101) 143/80 (101) Pulse Ox 97 98 99 O2 Delivery Room Air Room Air Room Air 10/25/17 10/25/17 10/25/17 10/25/17 18:45 19:00 19:15 19:30 Temp 98.6 Pulse 88 88 86 76 Resp 18 18 18 18 B/P (MAP) 133/71 (91) 133/71 (91) 136/83 (100) 129/77 (94) Pulse Ox 98 98 98 97 O2 Delivery Room Air Room Air Room Air Room Air 10/25/17 10/25/17 10/25/17 10/25/17 19:45 20:00 20:15 20:30 Pulse 84 88 96 88 Resp 18 18 B/P (MAP) 134/94 (107) 134/83 (100) 160/96 (117) Pulse Ox 99 98 99 100 O2 Delivery Room Air Room Air Room Air Room Air 10/25/17 10/25/17 10/26/17 10/26/17 20:45 21:00 00:23 04:09 Temp 97.9 98.6 97.5 Pulse 82 77 75 84 Resp 18 18 17 15 B/P (MAP) 136/74 (94) 105/54 (71) 125/88 (100) 121/76 (91) Pulse Ox 98 95 O2 Delivery Room Air Room Air Room Air Room Air Intake and Output 10/25/17 10/25/17 10/26/17 15:00 23:00 07:00 Intake Total 100 ml 202 ml 2200 ml Output Total 1000 ml 1100 ml Balance 100 ml -798 ml 1100 ml Physical Exam: General - Alert and oriented, no apparent distress Abdomen - Soft, appropriately tender to palpation, non-distended, fundus firm at umbilicus Extremities - no edema, negative Servando's bilaterally Incision- C/d/i Assessment: POD 1 PLTCS Acute blood loss anemia Plan: Routine care. Encourage breast feeding. Encourage ambulation. Ferrous sulfate supplementation. Plan for discharge tomorrow Vitals - Labs Vital Signs - I&O Vital Signs Date Time Temp Pulse Resp B/P (MAP) Pulse Ox O2 Delivery O2 Flow Rate FiO2 10/26/17 04:09 97.5 84 15 121/76 (91) 95 Room Air 10/26/17 00:23 98.6 75 17 125/88 (100) 98 Room Air 10/25/17 21:00 97.9 77 18 105/54 (71) Room Air 10/25/17 20:45 82 18 136/74 (94) Room Air 10/25/17 20:30 88 18 160/96 (117) 100 Room Air 10/25/17 20:15 96 18 99 Room Air 10/25/17 20:00 88 18 134/83 (100) 98 Room Air 10/25/17 19:45 84 18 134/94 (107) 99 Room Air 10/25/17 19:30 76 18 129/77 (94) 97 Room Air 10/25/17 19:15 98.6 86 18 136/83 (100) 98 Room Air 10/25/17 19:00 88 18 133/71 (91) 98 Room Air 10/25/17 18:45 88 18 133/71 (91) 98 Room Air 10/25/17 18:30 75 18 143/80 (101) 99 Room Air 10/25/17 18:25 97.8 10/25/17 18:15 86 18 132/85 (101) 98 Room Air 10/25/17 18:00 82 18 125/71 (89) 97 Room Air 10/25/17 17:45 93 18 97 Room Air 10/25/17 17:30 91 18 101/59 (73) 97 Room Air 10/25/17 17:15 85 18 109/60 (76) 97 Room Air 10/25/17 17:00 84 18 105/70 (82) 97 Room Air 10/25/17 16:45 86 18 116/58 (77) 98 Room Air 10/25/17 16:30 72 18 101/65 (77) 97 Room Air 10/25/17 16:15 75 18 101/60 (74) 97 Room Air 10/25/17 16:00 74 18 94/54 (67) 97 Room Air 10/25/17 15:45 73 18 91/53 (66) 98 Room Air 10/25/17 15:30 81 18 98 Room Air 10/25/17 15:15 84 18 117/72 (87) 98 Room Air 10/25/17 15:00 83 18 123/78 (93) 98 Room Air 10/25/17 14:49 97.8 10/25/17 14:45 85 18 129/65 (86) 98 Room Air 10/25/17 14:30 78 18 124/74 (91) 98 Room Air 10/25/17 14:25 90 18 132/77 (95) 98 Room Air 10/25/17 14:20 80 18 129/65 (86) 98 Room Air 10/25/17 14:15 87 20 138/90 (106) 99 Room Air 10/25/17 14:10 77 18 99 Room Air 10/25/17 14:05 81 20 148/92 (110) 98 Room Air 10/25/17 14:00 95 20 147/95 (112) 100 Room Air 10/25/17 13:55 103 20 134/97 (109) 98 Room Air 10/25/17 13:45 74 20 144/83 (103) Room Air 10/25/17 13:30 80 20 140/86 (104) Room Air 10/25/17 13:15 100 20 176/92 (120) Room Air 10/25/17 13:00 86 18 185/107 (133) Room Air 10/25/17 12:45 93 18 177/93 (121) Room Air 10/25/17 12:30 83 18 176/106 (129) Room Air 10/25/17 12:15 83 18 153/90 (111) Room Air 10/25/17 12:00 81 18 147/93 (111) Room Air 10/25/17 11:45 82 18 143/86 (105) Room Air 10/25/17 11:30 93 18 135/73 (93) Room Air 10/25/17 11:15 81 18 128/58 (81) Room Air 10/25/17 11:00 76 18 157/86 (109) Room Air 10/25/17 10:45 97.8 78 18 145/117 (126) Room Air 10/25/17 10:30 83 18 137/77 (97) Room Air 10/25/17 10:15 87 18 137/77 (97) Room Air 10/25/17 10:00 71 18 136/79 (98) Room Air 10/25/17 09:45 67 18 123/72 (89) Room Air 10/25/17 09:30 73 18 135/77 (96) Room Air 10/25/17 09:15 71 18 123/68 (86) Room Air 10/25/17 09:00 86 18 131/84 (100) Room Air 10/25/17 08:45 75 18 106/62 (77) Room Air 10/25/17 08:30 75 18 132/73 (92) Room Air I & O 10/26/17 07:00 Intake Total 2502 ml Output Total 2100 ml Balance 402 ml Labs Laboratory Tests 10/26/17 06:29: White Blood Count 13.8H, Red Blood Count 3.75L, Hemoglobin 9.2L, Hematocrit 28L , Mean Corpuscular Volume 73L, Mean Corpuscular Hemoglobin 25, Mean Corpuscular Hemoglobin Concent 34, Red Cell Distribution Width 15.7H, Platelet Count 217, Mean Platelet Volume 11.2H, Neutrophils (%) (Auto) 89H, Lymphocytes (%) (Auto) 7L, Monocytes (%) (Auto) 4, Eosinophils (%) (Auto) 0, Basophils (%) (Auto) 0, Neutrophils # (Auto) 12.2H, Lymphocytes # (Auto) 1.0, Monocytes # (Auto) 0.6, Eosinophils # (Auto) 0.0, Basophils # (Auto) 0.0 MARIANNE GRAHAM DO Oct 26, 2017 8:14 am
[2017-10-26] MEDS: DOCUSATE SODIUM 100 MG (COLACE) CAP PO SCH ×2 (09:09→20:59)
[2017-10-26 12:00] VITALS: BP 118/75
[2017-10-26] MEDS: IBUPROFEN 600 MG (MOTRIN) TAB PO SCH ×2 (12:51→19:00)
--- NOTE | 2017-10-26 13:52 | Anesthesia-Regional Post-Op ---
Regional Patient Condition Mental Status: Alert, Oriented x3 Circulation: Same as Pre-Op Headache: Absent Sensation: Full Recovery Motor Block: Absent Post Op Complications Complications None Follow Up Care/Instructions Patient Instructions None needed. Anesthesia/Patient Condition Patient is doing well, no complaints, stable vital signs, no apparent adverse anesthesia problems. CLYDE MEAD DO Oct 26, 2017 13:52
[2017-10-26 16:00] VITALS: BP 131/85
[2017-10-26 20:00] VITALS: BP 139/82
[2017-10-27] VITALS: BP 111/71
[2017-10-27] MEDS: IBUPROFEN 600 MG (MOTRIN) TAB PO SCH ×3 (00:23→11:44)
[2017-10-27] MEDS: CATHETER FLUSH 10 ML SYR IV SCH ×2 (04:53→10:35)
[2017-10-27 08:00] VITALS: BP 122/83
[2017-10-27] MEDS: DOCUSATE SODIUM 100 MG (COLACE) CAP PO SCH (08:46)
--- NOTE | 2017-10-27 08:47 | Postpartum Progress Note ---
Note Note Day # 2 Subjective: Patient is without complaints. Ambulating, voiding. Tolerating a regular diet without nausea or vomiting. Normal lochia. Pain is well controlled with oral pain medications. Objective: Vital Sign - Last 24 Hours 10/26/17 10/26/17 10/26/17 10/27/17 12:00 16:00 20:00 00:00 Temp 97.6 97.7 97.4 97.3 Pulse 91 80 92 88 Resp 18 20 18 18 B/P (MAP) 118/75 (89) 131/85 (100) 139/82 (101) 111/71 (84) Pulse Ox 94 97 100 98 O2 Delivery Room Air Room Air Room Air Room Air 10/27/17 08:00 Temp 96.8 Pulse 75 Resp 16 B/P (MAP) 122/83 (96) Pulse Ox 99 O2 Delivery Room Air Intake and Output 10/26/17 10/26/17 10/27/17 15:00 23:00 07:00 Intake Total 3090 ml 500 ml Output Total 2900 ml 800 ml Balance 190 ml -300 ml Physical Exam: General - Alert and oriented, no apparent distress Abdomen - Soft, appropriately tender to palpation, non-distended, fundus firm at umbilicus Extremities - no edema, negative Servando's bilaterally Incision- c/d/i Assessment: POD 2 PLTCS GHTN- resolved BMI 47 Plan: Routine care. Encourage breast feeding. Encourage ambulation. Ferrous sulfate supplementation. Plan for discharge today Vitals - Labs Vital Signs - I&O Vital Signs Date Time Temp Pulse Resp B/P (MAP) Pulse Ox O2 Delivery O2 Flow Rate FiO2 10/27/17 08:00 96.8 75 16 122/83 (96) 99 Room Air 10/27/17 00:00 97.3 88 18 111/71 (84) 98 Room Air 10/26/17 20:00 97.4 92 18 139/82 (101) 100 Room Air 10/26/17 16:00 97.7 80 20 131/85 (100) 97 Room Air 10/26/17 12:00 97.6 91 18 118/75 (89) 94 Room Air I & O 10/27/17 07:00 Intake Total 3590 ml Output Total 3700 ml Balance -110 ml MARIANNE GRAHAM DO Oct 27, 2017 8:47 am
[2017-10-27] MEDS ORDERED: ENOXAPARIN 80 MG/0.8 ML (LOVENOX) SYR SC NR (09:00)
[2017-10-27 14:10] VITALS: BP 122/83
--- NOTE | 2017-11-07 02:56 | DISCHARGE SUMMARY ---
DATE OF SERVICE: ADMISSION DIAGNOSES: 1. A 26-year-old female G3, P0 at 39 weeks and 5 days gestation. 2. Transient gestational hypertension. 3. BMI of 47. 4. GBS positive. DISCHARGE DIAGNOSES: 1. A 26-year-old female G3, P0 at 39 weeks and 5 days gestation. 2. Transient gestational hypertension. 3. BMI of 47. 4. GBS positive. 5. Postop day 2, primary low transverse section. ATTENDING PHYSICIAN: Marianne Graham DO. SERVICES: Women's services. HOSPITAL COURSE FOLLOWS: Please see admission H and P from 10/25/2017 for complete details pertaining to the patient's admission presentation and plan of care. Please see operative report from 10/26/2017 for complete details pertaining to the patient's operative indications for procedure and the procedure in detail. POSTOPERATIVE COURSE: This patient was fairly routine on postop day #1 from her primary . Her hemoglobin dropped to 9.2 and she was started on iron supplementation. Otherwise, she was doing very well. Vital signs remained stable. Incision was clean, dry and intact. Pain was well controlled. The patient was encouraged to ambulate that day. Her Castelan catheter was discontinued on the night before and she was voiding freely. On postop day #2, she continued to do well. Pain was well controlled. Vital signs remained stable. No further elevations were noted. Her incision remained clean, dry and intact. She was ambulating and voiding freely. Due to the patient's clinical stability on postop day #2, the decision was made to discharge the patient home. She was given routine and postoperative precautions and told to return to my office in 7 to 10 days for incision check as well as 6 weeks for a examination. She was sent home on the following medications including Colace 100 mg 1 p.o. b.i.d. p.r.n. as needed for constipation, #40, hydrocodone 5/325 one to two p.o. q.4-6 hours p.r.n. as needed for pain, #50, Motrin 600 mg 1 p.o. q.6 hours p.r.n. as needed for pain, #80. She was told to continue her folic acid or vitamin and to continue her iron supplementation she was taken at home. Discharge was facilitated at that point without further difficulty. After all the patient's questions were answered. Job ID: [id number] DocumentID: [id number] Dictated Date: 11/06/2017 12:27:37 Vegetable Grower Date: 11/07/2017 02:55:36 Dictated By: MARIANNE GRAHAM DO
== END 2017-10-27 14:45 | disposition home or self-care (01) | DRG 765 ==
LOC: LDRP 18:56
PROVIDERS: ADMIT Obstetrics & Gynecology; ATTEND Obstetrics & Gynecology
PROC: 3E0DXGC Introduction of Other Therapeutic Substance into Mouth and Pharynx, External Approach (ICD-10-PCS; 2017-10-24)
PROC: 10D00Z1 Extraction of Products of Conception, Low, Open Approach (ICD-10-PCS; principal; 2017-10-25 21:05)
DX: O13.4 Gestational [pregnancy-induced] hypertension without significant proteinuria, complicating childbirth (principal); O62.0 Primary inadequate contractions; O99.824 Streptococcus B carrier state complicating childbirth; O90.81 Anemia of the puerperium; D62 Acute posthemorrhagic anemia; Z37.0 Single live birth; Z3A.39 39 weeks gestation of pregnancy
CPT/HCPCS: 36415; 80053; 85025; 86850; 86900; 86901; 94664

== ENCOUNTER 2017-11-01 12:57 | Emergency (ER) | payer OTHER ==
[~2017-11-01] VITALS: Ht 177.8 cm; Wt 129.3 kg
[~2017-11-01 12:57] MED LIST changes: +ACHD5005 PO; +DOCU100C37 PO; +IBUP-844 PO
[2017-11-01] MEDS ORDERED: fentaNYL INJECTION 100 MCG/2 ML AMP IVP STA (14:05)
[2017-11-01] MEDS ORDERED: NS IV 500 ML 500 ML IV ONE (14:05)
--- OUTSIDE RECORDS SUMMARY | 2017-11-01 14:08 | XMS REPORT ---
Author Author CRISTIANA MCLEOD Organization [facility] Address [address] [place] [address] Care Team Providers Care Senior Portfolio Manager Name Role Phone CRISTIANA MCLEOD Unavailable PROBLEMS Type Condition ICD9-CM Code SRB55-BD Code Onset Dates Condition Status SNOMED Code Problem Family history of malignant neoplasm of endometrium Z80.49 Active 126040557461274 Problem Obesity (BMI 35.0-39.9 without comorbidity) E66.01 Active 880932018 Problem Family history of heart disease Z82.49 Active 604278893 Problem Family history of hyperlipidemia Z83.49 Active 230911461 Problem Family history of ovarian cancer Z80.41 Active 536112634 Problem Gingivitis K05.10 Active 79736945 Problem Anxiety F41.9 Active 42156049 Problem Overweight E66.3 Active 039960418 Problem Hirsutism L68.0 Active 936413545 Problem Desire for Z31.9 Active 468180924 Problem Seasonal allergic rhinitis, unspecified allergic rhinitis trigger J30.2 Active 318648514 ALLERGIES No Known Allergies ENCOUNTERS Encounter Location Date Diagnosis [facility] [id number] [place] [address] 60104- 4689 Aug, [facility] [address] [address] Aug, Encounter for immunization Z23 [facility] [id number] [place] [address] 84263- 1511 Jun, Dental examination Z01.20 and Gingivitis K05.10 [facility] [id number] [place] [address]471 [address]2382 Jun, [facility] [id number] [place] [address] 09881- 6073 Feb, [facility] [address] [address] Jan, Other viral agents as the cause of diseases classified elsewhere B97.89 and Acute upper respiratory infection, unspecified J06.9 [facility] [id number] [place] [address] 93687- 8303 02 Dec, 2016 Encounter for immunization Z23 [facility] [id number] [place] [address] 31326- 2211 18 Nov, 2016 Left foot pain M79.672 [facility] [id number] [place] [address] 63527- 1482 14 Nov, 2016 Dental examination Z01.20 [facility] [id number] [place] [address] 85673- 3548 26 Sep, 2016 [facility] [id number] [place] [address] 38372- 7240 Sep, Over weight E66.3 [facility] [id number] [place] [address] 94107- 0618 Sep, Over weight E66.3 [facility] [id number] [place] [address] 30083- 9196 Aug, Over weight E66.3 [facility] [address] [place] [address] July, Needle stick injury W27.3XXA [facility] [id number] [place] [address] 74659 -7630 July, Needle stick injury W27.3XXA [facility] [address] [place] [address] 44459- 8818 July, Visit for TB skin test Z11.1 and Screening for tuberculosis Z11.1 [facility] [address] [place] [address] 56542- 7854 July, Over weight E66.3 [facility] [id number] [place] [address] 98773- 1090 Jun, Dental examination Z01.20 [facility] [id number] [place] [address] 03827- 0990 13 Jun, 2016 Encounter for immunization Z23 [facility] [id number] [place] [address] 20 Apr, 2016 Gastroenteritis K52.9 [facility] [address] 21571- 4812 14 Apr, 2016 Cough R05 and Acute nasopharyngitis J00 [facility] [id number] [place] [address] 13195- 1499 02 Mar, 2016 Less than 8 weeks gestation of Z3A.01 [facility] [address] 80174- 4794 Feb, Less than 8 weeks gestation of Z3A.01 and Bleeding in early O20.9 [facility] [id number] [place] [address] 26816- 7826 Feb, Dental examination Z01.20 [facility] [id number] [place] [address] 04161- 4571 Feb, Dental examination Z01.20 [facility] [id number] [place] [address] [id number] Feb, Dental examination Z01.20 [facility] [id number] [place] [address] 96044- 7668 Jan, [facility] [id number] [place] [address] 79238- 4483 Jan, Desire for Z31.9 ; General medical exam Z00.00 and Anxiety F41.9 [facility] [id number] [place] [address] 98043- 3240 Jan, Encounter for immunization Z23 [facility] [id number] [place] [address] 80921- 1922 Nov, [facility] [id number] [place] [address] 98939- 2424 Nov, [facility] [id number] [place] [address] 31104- 1217 Nov, [facility] [id number] [place] [address] 57310- 0700 Oct, Seasonal allergic rhinitis, unspecified allergic rhinitis trigger J30.2 and Overweight E66.3 [facility] [id number] [place] [address] 63431- 7467 Oct, Left foot pain M79.672 [facility] [id number] [place] [address] 53076- 2477 09 Apr, 2015 Hirsutism L68.0 and Obesity (BMI 35.0-39.9 without comorbidity) E66.01 [facility] [id number] [place] [address] 56359- 1809 Mar, Obesity (BMI 35.0-39.9 without comorbidity) E66.01 [facility] [id number] [place] [address] 08535- 1634 Mar, [facility] [id number] [place] [address] 81681- 9696 Mar, Headache R51 [facility] [id number] [place] [address] 74378- 2289 Mar, [facility] [id number] [place] [address] 46375- 4688 Mar, Obesity (BMI 35.0-39.9 without comorbidity) E66.01 [facility] [id number] [place] [address] 32644- 2607 Mar, [facility] [id number] [place] [address] 89701- 2576 Feb, General medical exam Z00.00 ; Hirsutism L68.0 ; Obesity ( BMI 35.0-39.9 without comorbidity) E66.01 ; Family history of hyperlipidemia Z83.49 and Family history of heart disease Z82.49 [facility] [id number] [place] [address] 79054- 4483 Feb, General medical exam Z00.00 ; Hirsutism L68.0 ; Obesity ( BMI 35.0-39.9 without comorbidity) E66.01 ; Family history of ovarian cancer Z80.41 ; Family history of malignant neoplasm of endometrium Z80.49 ; Family history of hyperlipidemia Z83.49 and Family history of heart disease Z82.49 [facility] [id number] [place] [address] 19251- 1566 Dec, Headache R51 [facility] [address] 11313- 6374 Dec, Headache R51 [facility] [address] 25089- 4778 Dec, Headache R51 [facility] [address] 08888- 7257 Dec, Acute pansinusitis, unspecified J01.40 and Acute upper respiratory infection, unspecified J06.9 [place] [id number] [place] [address] 91330- 2394 Dec, Encounter for immunization Z23 [place] [id number] [place] [address] 72472- 4690 Nov, Cellulitis 682.9 IMMUNIZATIONS No Known Immunizations SOCIAL HISTORY Never Assessed REASON FOR VISIT Dental Hygiene Recare PLAN OF CARE Activity Details Follow Up 4 Months Reason:RAHEEM/Radiographs VITAL SIGNS MEDICATIONS Medication Instructions Dosage Frequency Start Date End Date Duration Status Vitamin D (Ergocalciferol) 77677 UNIT Orally one time weekly 1 capsule Jan, 12 weeks Not-Taking Folic Acid Active Flonase 50 MCG/DOSE Nasally Once a day 1 spray in each nostril 24h Oct, 30 day(s) Not-Taking Diethylpropion HCl ER 75 MG Orally Once a day 1 tablet 24h Sep, Not-Taking Imitrex 100 MG 1 tablet at the onset of headache and repeat in 1 hour 08 Mar, 2015 Not-Taking Active Contrave 8-90 MG Orally Twice a day 1 tablet 12h 30 days Not-Taking BusPIRone HCl 10 MG Orally Twice a day 1 tablet 12h Nov, Not -Taking Progesterone 200 MG Vaginal Once a day 0.5 suppository 24h Not- Taking Zyrtec Allergy 10 MG Orally Once a day 1 tablet 24h Active RESULTS No Results PROCEDURES Procedure Date Ordered Result Body Site PROPHYLAXIS - ADULT July 03, 2017 ORAL HYGIENE INSTRUCTIONS July 03, 2017 Billing Notes on claim July 03, 2017 TOPICAL FLUORIDE VARNISH July 03, 2017 [employer] Employee/Board adjustment July 03, 2017 INSTRUCTIONS MEDICATIONS ADMINISTERED No Known Medications MEDICAL (GENERAL) HISTORY Type Description Date Medical History plantar fasciitis left [address] Barber and got an injection Surgical History DNC May 2016 Hospitalization History Cellulitis Left Knee 2007 Hospitalization History ER visit--left sided numbness 2015
--- OUTSIDE RECORDS SUMMARY | 2017-11-01 14:12 | XMS REPORT | Continuity of Care Document ---
Author Author [facility] Organization [facility] Address Unknown Phone Unavailable Allergies Active Description Code Type Severity Reaction Onset Reported/Identified Relationship to Patient Clinical Status Yes No Known Drug Allergies [id number] Drug Allergy Unknown N/A 06/09/2016 Medications There is no data. Problems Date Dx Coded Attending Type Code Diagnosis Diagnosed By 04/13/2015 DEBORAH HURT ACADEMIC SUPPORT COORDINATOR Ot E66.01 04/13/2015 DEBORAH HURT ACADEMIC SUPPORT COORDINATOR Ot L68.0 04/13/2015 DEBORAH HURT ACADEMIC SUPPORT COORDINATOR Ot Z68.35 05/14/2015 DEBORAH HURT ACADEMIC SUPPORT COORDINATOR Ot E66.01 05/14/2015 DEBORAH HURT ACADEMIC SUPPORT COORDINATOR Ot L68.0 05/14/2015 DEBORAH HURT ACADEMIC SUPPORT COORDINATOR Ot Z68.35 03/24/2016 DEBORAH HURT ACADEMIC SUPPORT COORDINATOR Ot E66.01 MORBID (SEVERE) OBESITY DUE TO EXCESS CA 03/24/2016 DEBORAH HURT ACADEMIC SUPPORT COORDINATOR Ot L68.0 HIRSUTISM 03/24/2016 DEBORAH HURT ACADEMIC SUPPORT COORDINATOR Ot Z68.35 BODY MASS INDEX (BMI) 35.0-35.9, ADULT 05/12/2016 BUSTER BREWER SOFTWARE VERIFICATION ENGINEER Ot O20.9 HEMORRHAGE IN EARLY , UNSPECIFI 05/12/2016 BUSTER BREWER SOFTWARE VERIFICATION ENGINEER Ot Z3A.01 LESS THAN 8 WEEKS GESTATION OF 05/25/2016 DAVY WANG MD N Ot O20.0 THREATENED 05/26/2016 KATHLEEN BOB, DAVY N Ot O20.0 THREATENED 05/26/2016 KATHLEEN BOB, DAVY N Ot O20.0 THREATENED 06/01/2016 DAVY WANG MD N Ot O20.0 THREATENED 06/02/2016 BUSTER BREWER SOFTWARE VERIFICATION ENGINEER Ot O20.9 HEMORRHAGE IN EARLY , UNSPECIFI 06/02/2016 MADL, BUSTER L SOFTWARE VERIFICATION ENGINEER Ot Z3A.01 LESS THAN 8 WEEKS GESTATION OF 06/02/2016 KATHLEEN BOB, DAVY N Ot O20.0 THREATENED 06/02/2016 KATHLEEN BOB, DAVY N Ot O20.0 THREATENED 06/02/2016 KATHLEEN BOB, DAVY N Ot O20.0 THREATENED 06/02/2016 DEBORAH HURT ACADEMIC SUPPORT COORDINATOR Ot E66.01 MORBID (SEVERE) OBESITY DUE TO EXCESS CA 06/02/2016 DEBORAH HURT ACADEMIC SUPPORT COORDINATOR Ot L68.0 HIRSUTISM 06/02/2016 DEBORAH HURT ACADEMIC SUPPORT COORDINATOR Ot Z68.35 BODY MASS INDEX (BMI) 35.0-35.9, ADULT 06/02/2016 MADL, BUSTER L SOFTWARE VERIFICATION ENGINEER Ot O20.9 HEMORRHAGE IN EARLY , UNSPECIFI 06/02/2016 MADL, BUSTER L SOFTWARE VERIFICATION ENGINEER Ot Z3A.01 LESS THAN 8 WEEKS GESTATION OF 06/02/2016 DEBORAH HURT ACADEMIC SUPPORT COORDINATOR Ot E66.01 MORBID (SEVERE) OBESITY DUE TO EXCESS CA 06/02/2016 DEBORAH HURT ACADEMIC SUPPORT COORDINATOR Ot L68.0 HIRSUTISM 06/02/2016 DEBORAH HURT ACADEMIC SUPPORT COORDINATOR Ot Z68.35 BODY MASS INDEX (BMI) 35.0-35.9, ADULT 06/06/2016 DEBORAH HURT ACADEMIC SUPPORT COORDINATOR Ot E66.01 MORBID (SEVERE) OBESITY DUE TO EXCESS CA 06/06/2016 DEBORAH HURT ACADEMIC SUPPORT COORDINATOR Ot L68.0 HIRSUTISM 06/06/2016 DEBORAH HURT ACADEMIC SUPPORT COORDINATOR Ot Z68.35 BODY MASS INDEX (BMI) 35.0-35.9, ADULT 06/06/2016 KATHLEEN BOB, DAVY N Ot O20.0 THREATENED 06/06/2016 KATHLEEN BOB, DAVY N Ot O20.0 THREATENED 06/09/2016 KATHLEEN BOB, DAVY N Ot O02.1 MISSED 06/09/2016 KATHLEEN BOB, DAVY N Ot Z01.818 ENCOUNTER FOR OTHER PREPROCEDURAL EXAMIN 06/09/2016 KATHLEEN MD, DAVY N Ot O02.1 MISSED 06/09/2016 DAVY WANG MD N Ot Z01.818 ENCOUNTER FOR OTHER PREPROCEDURAL EXAMIN 06/10/2016 DAVY WANG MD N Ot O02.1 MISSED 06/10/2016 DAVY WANG MD N Ot Z01.818 ENCOUNTER FOR OTHER PREPROCEDURAL EXAMIN 06/14/2016 DAVY WANG MD N Ot O02.1 MISSED 06/14/2016 DAVY WANG MD N Ot O02.1 MISSED 06/15/2016 DAVY AWNG MD N Ot O02.1 MISSED 06/15/2016 DAVY WANG MD Ot D62 ACUTE POSTHEMORRHAGIC ANEMIA 06/15/2016 DAVY WANG MD N Ot E87.6 HYPOKALEMIA 06/15/2016 ANAID WANG MDIN N Ot N96 RECURRENT LOSS 06/15/2016 ANAID WANG MDIN N Ot O03.1 DELAYED OR EXCESSIVE HEMOR FOLLOWING INC 06/15/2016 DAVY WANG MD N Ot Z3A.11 11 WEEKS GESTATION OF 06/20/2016 DAVY WANG MD Ot D62 ACUTE POSTHEMORRHAGIC ANEMIA 06/20/2016 DAVY WANG MD N Ot E87.6 HYPOKALEMIA 06/20/2016 DAVY WANG MD N Ot N96 RECURRENT LOSS 06/20/2016 DAVY WANG MD N Ot O03.1 DELAYED OR EXCESSIVE HEMOR FOLLOWING INC 06/20/2016 KATHLEEN BOB DAVY N Ot Z3A.11 11 WEEKS GESTATION OF 06/22/2016 BUSTER BREWER SOFTWARE VERIFICATION ENGINEER Ot O20.9 HEMORRHAGE IN EARLY , UNSPECIFI 06/22/2016 BUSTER BREWER SOFTWARE VERIFICATION ENGINEER Ot Z3A.01 LESS THAN 8 WEEKS GESTATION OF 06/22/2016 DAVY WANG MD N Ot O20.0 THREATENED 06/22/2016 KATHLEEN BOB DAVY N Ot O20.0 THREATENED 06/23/2016 DAVY WANG MD N Ot O20.0 THREATENED 06/23/2016 KATHLEEN BOB, DAVY N Ot O20.0 THREATENED 07/14/2016 KATHLEEN BOB, DAVY N Ot O20.0 THREATENED 08/19/2016 KATHLEEN BOB, DAVY N Ot O20.0 THREATENED 08/19/2016 KATHLEEN BOB, DAVY N Ot O20.0 THREATENED 08/19/2016 KATHLEEN BOB, DAVY N Ot O02.1 MISSED 09/21/2016 KATHLEEN BOB, DAVY N Ot N60.02 SOLITARY CYST OF LEFT BREAST 10/18/2016 KATHLEEN BOB, DAVY N Ot O02.1 MISSED 10/18/2016 KATHLEEN BOB, DAVY N Ot N60.02 SOLITARY CYST OF LEFT BREAST 02/25/2017 KATHLEEN BOB, DAVY N Ot N60.02 SOLITARY CYST OF LEFT BREAST 03/09/2017 FENECH DO, MARIANNE S Ot Z36.89 ENCOUNTER FOR OTHER SPECIFIED 04/02/2017 FENECH DO, MARIANNE S Ot Z36.89 ENCOUNTER FOR OTHER SPECIFIED 06/08/2017 FENECH DO, MARIANNE S Ot Z36.89 ENCOUNTER FOR OTHER SPECIFIED 06/12/2017 FENECH DO, MARIANNE S Ot Z36.89 ENCOUNTER FOR OTHER SPECIFIED 06/12/2017 FENECH DO, MARIANNE S Ot Z3A.20 20 WEEKS GESTATION OF 06/21/2017 FENECH DO, MARIANNE S Ot Z36.89 ENCOUNTER FOR OTHER SPECIFIED 06/21/2017 FENECH DO, MARIANNE S Ot Z3A.20 20 WEEKS GESTATION OF 10/17/2017 FENECH DO, MARIANNE S Ot O13.3 GESTATIONAL HTN W/O SIGNIFICANT PROTEINU 10/17/2017 FENECH DO, MARIANNE S Ot R60.0 LOCALIZED EDEMA 10/17/2017 FENECH DO, MARIANNE S Ot Z3A.38 38 WEEKS GESTATION OF Procedures There is no data. Results Test Result Range CBC With Differential/Platelet - 02/17/16 11:41 WBC 5.8 x10E3/uL 3.4-10.8 RBC 4.82 x10E6/uL 3.77-5.28 Hemoglobin 12.9 g/dL 11.1-15.9 Hematocrit 38.4 % 34.0-46.6 MCV 80 fL 79-97 MCH 26.8 pg 26.6-33.0 MCHC 33.6 g/dL 31.5-35.7 RDW 13.6 % 12.3-15.4 Platelets 317 x10E3/uL 150-379 Neutrophils 53 % Lymphs 38 % Monocytes 7 % Eos 1 % Basos 1 % Neutrophils (Absolute) 3.1 x10E3/uL 1.4-7.0 Lymphs (Absolute) 2.2 x10E3/uL 0.7-3.1 Monocytes(Absolute) 0.4 x10E3/uL 0.1-0.9 Eos (Absolute) 0.1 x10E3/uL 0.0-0.4 Baso (Absolute) 0.0 x10E3/uL 0.0-0.2 Immature Granulocytes 0 % Immature Grans (Abs) 0.0 x10E3/uL 0.0-0.1 Comp. Metabolic Panel (14) - 02/17/16 11:41 Glucose, Serum 89 mg/dL 65-99 BUN 8 mg/dL 6-20 Creatinine, Serum 0.62 mg/dL 0.57-1.00 eGFR If NonAfricn Am 126 mL/min/1.73 >59 eGFR If Africn Am 145 mL/min/1.73 >59 BUN/Creatinine Ratio 13 8-20 Sodium, Serum 140 mmol/L 136-144 Potassium, Serum 4.4 mmol/L 3.5-5.2 Chloride, Serum 99 mmol/L 97-106 Carbon Dioxide, Total 26 mmol/L 18-29 Calcium, Serum 9.6 mg/dL 8.7-10.2 Protein, Total, Serum 7.5 g/dL 6.0-8.5 Albumin, Serum 4.6 g/dL 3.5-5.5 Globulin, Total 2.9 g/dL 1.5-4.5 A/G Ratio 1.6 1.1-2.5 Bilirubin, Total 0.4 mg/dL 0.0-1.2 Alkaline Phosphatase, S 53 IU/L 39-117 AST (SGOT) 17 IU/L 0-40 ALT (SGPT) 16 IU/L 0-32 Folate (Folic Acid), Serum - 02/17/16 11:41 Folate (Folic Acid), Serum >20.0 ng/mL >3.0 TSH - 02/17/16 11:41 TSH 1.870 uIU/mL 0.450-4.500 Luteinizing Hormone(LH), S - 02/17/16 11:41 LH 7.7 mIU/mL FSH, Serum - 02/17/16 11:41 FSH 8.1 mIU/mL Estradiol - 02/17/16 11:41 Estradiol 35.0 pg/mL Vitamin D, 25-Hydroxy - 02/17/16 11:41 Vitamin D, 25-Hydroxy 18.0 ng/mL 30.0-100.0 Progesterone - 02/17/16 11:41 Progesterone 0.1 ng/mL Serum or plasma choriogonadotropin measurement (units/volume) - 03/24/16 11:51 Serum or plasma choriogonadotropin measurement (units/volume) 14 m[ iU]/mL <5 Serum or plasma choriogonadotropin measurement (units/volume) - 03/26/16 08:50 Serum or plasma choriogonadotropin measurement (units/volume) < m[iU ]/mL <5 hCG,Beta Subunit, Qnt, Serum - 03/28/16 14:35 hCG,Beta Subunit,Qnt,Serum <1 mIU/mL Complete blood count (CBC) with automated white blood cell (WBC) differential - 06/14/16 23:00 Blood leukocytes automated count (number/volume) 6.7 10*3/uL 4.3-11.0 Blood erythrocytes automated count (number/volume) 4.14 10*6/uL 4.35-5.85 Venous blood hemoglobin measurement (mass/volume) 11.2 [...] Automated blood platelet mean volume measurement 9.9 [foz_us] 7.4-10.4 Automated blood neutrophils/100 leukocytes 50 % [...] panel - 06/14/16 23:00 ABO+Rh group AP NR Transfusion band number [id number] NR Blood group antibody screen NEGATIVE [facility] PT panel in platelet poor plasma by [...] Serum or plasma sodium measurement (moles/volume) 138 mmol/L 135-145 Serum or plasma potassium measurement (moles/volume) 3.3 mmol/L 3.6-5.0 Serum or plasma chloride measurement (moles/volume) 107 mmol/L 98-107 Carbon dioxide 20 mmol/L 21-32 Serum or plasma anion gap determination (moles/volume) 11 mmol/L 5-14 Serum or plasma urea nitrogen measurement (mass/volume) 6 mg/dL 7-18 Serum or plasma creatinine measurement (mass/volume) 0.72 mg/dL 0.60-1.30 Serum or plasma urea nitrogen/creatinine mass ratio 8 NRG Serum or plasma creatinine measurement with calculation of estimated glomerular filtration rate > NRG Serum or plasma glucose measurement (mass/volume) 133 mg/dL 70-105 Serum or plasma calcium measurement (mass/volume) 8.5 mg/dL 8.5-10.1 Serum or plasma choriogonadotropin measurement (units/volume) - 06/14/16 23:00 Serum or plasma choriogonadotropin measurement (units/volume) 3059 m [iU]/mL <5 Methicillin resistant Staphylococcus aureus (MRSA) screening culture - 07:39 Methicillin resistant Staphylococcus aureus (MRSA) screening culture NEG NRG Urine protein/creatinine mass ratio - 10/11/17 17:45 Urine protein measurement (mass/volume) < mg/dL 6-12 Urine creatinine measurement (mass/volume) 22 mg/dL 30- 125 Urine protein/creatinine mass ratio TNP NRG Complete blood count (CBC) with automated white blood cell (WBC) differential - 10/11/17 18:25 Blood leukocytes automated count (number/volume) 8.2 10*3/uL 4.3-11.0 Blood erythrocytes automated count (number/volume) 4.08 10*6/uL 4.35-5.85 Venous blood hemoglobin measurement (mass/volume) 10.2 g/dL 11.5-16.0 Blood hematocrit (volume fraction) 31 % 35-52 Automated erythrocyte mean corpuscular volume 75 [foz_us] 80-99 Automated erythrocyte mean corpuscular hemoglobin (mass per erythrocyte) 25 pg 25-34 Automated erythrocyte mean corpuscular hemoglobin concentration measurement ( mass/volume) 33 g/dL 32-36 Automated erythrocyte distribution width ratio 14.9 % 10.0-14.5 Automated blood platelet count (count/volume) 188 10*3/uL 130-400 Automated blood platelet mean volume measurement 10.6 [foz_us] 7.4-10.4 Automated blood neutrophils/100 leukocytes 72 % 42-75 Automated blood lymphocytes/100 leukocytes 18 % 12-44 Blood monocytes/100 leukocytes 10 % 0-12 Automated blood eosinophils/100 leukocytes 0 % 0-10 Automated blood basophils/100 leukocytes 0 % 0-10 Blood neutrophils automated count (number/volume) 6.0 10*3 1.8-7.8 Blood lymphocytes automated count (number/volume) 1.5 10*3 1.0-4.0 Blood monocytes automated count (number/volume) 0.8 10*3 0.0-1.0 Automated eosinophil count 0.0 10*3/uL 0.0-0.3 Automated blood basophil count (count/volume) 0.0 10*3/uL 0.0-0.1 Comprehensive metabolic panel - 10/11/17 18:25 Serum or plasma sodium measurement (moles/volume) 137 mmol/L 135-145 Serum or plasma potassium measurement (moles/volume) 3.8 mmol/L 3.6-5.0 Serum or plasma chloride measurement (moles/volume) 107 mmol/L 98-107 Carbon dioxide 22 mmol/L 21-32 Serum or plasma anion gap determination (moles/volume) 8 mmol/L 5-14 Serum or plasma urea nitrogen measurement (mass/volume) 5 mg/dL 7-18 Serum or plasma creatinine measurement (mass/volume) 0.59 mg/dL 0.60-1.30 Serum or plasma urea nitrogen/creatinine mass ratio 8 NRG Serum or plasma creatinine measurement with calculation of estimated glomerular filtration rate > NRG Serum or plasma glucose measurement (mass/volume) 84 mg/dL 70-105 Serum or plasma calcium measurement (mass/volume) 9.3 mg/dL 8.5-10.1 Serum or plasma total bilirubin measurement (mass/volume) 0.4 mg/dL 0.1-1.0 Serum or plasma alkaline phosphatase measurement (enzymatic activity/volume) 103 U/L 40-136 Serum or plasma aspartate aminotransferase measurement (enzymatic activity/ volume) 14 U/L 5-34 Serum or plasma alanine aminotransferase measurement (enzymatic activity/volume ) 8 U/L 0-55 Serum or plasma protein measurement (mass/volume) 6.4 g/dL 6.4-8.2 Serum or plasma albumin measurement (mass/volume) 3.4 g/dL 3.2-4.5 Serum or plasma uric acid measurement (mass/volume) - 10/11/17 18:25 Serum or plasma uric acid measurement (mass/volume) 5.1 mg/dL 2.6-7.2 Lactate dehydrogenase 1 [enzymatic activity/volume] in serum or plasma - 18:25 Lactate dehydrogenase 1 [enzymatic activity/volume] in serum or plasma 154 U/L 125-220 Urine protein/creatinine mass ratio - 10/19/17 15:30 Urine protein measurement (mass/volume) < mg/dL 6-12 Urine creatinine measurement (mass/volume) 35 mg/dL 30- 125 Urine protein/creatinine mass ratio TNP NRG Encounters ACCT No. Visit Date/Time Discharge Status Pt. Type Provider Facility Loc./Unit Complaint [id number] 10/19/2017 15:21:00 10/19/2017 17:12:00 DIS Outpatient MARIANNE GRAHAM DO [facility] WSo HEADACHE;DECREASED MOVEMENT [id number] 10/11/2017 17:37:00 10/11/2017 19:25:00 DIS Outpatient MARIANNE GRAHAM DO [facility] WSo ELEVATED BP [id number] 06/09/2017 14:11:00 06/09/2017 23:59:59 CLS Outpatient MARIANNE GRAHAM DO [facility] RAD ANATOMY SCAN [id number] 02/25/2017 12:18:00 02/25/2017 23:59:59 CLS Outpatient MARIANNE GRAHAM DO [facility] LAB ENCOUNTER FOR OTHER SPECIFIED SCREENING [id number] 12/09/2016 09:23:00 12/09/2016 23:59:59 CLS Preadmit MADCHARLIE RamirezA L SOFTWARE VERIFICATION ENGINEER [facility] REHAB HIP PAIN LEFT [id number] 08/25/2016 09:08:00 08/25/2016 23:59:59 CLS Outpatient DAVY WANG MD [facility] RAD N60.02 LT BREAST MASS [id number] 06/23/2016 00:10:00 06/23/2016 23:59:59 CLS Preadmit MADJames BUSTER L SOFTWARE VERIFICATION ENGINEER [facility] LAB BLEEDING IN EARLY [id number] 03/24/2016 11:43:00 06/22/2016 00:01:00 DIS Outpatient MADJames BUSTER L SOFTWARE VERIFICATION ENGINEER [facility] LAB BLEEDING IN EARLY [id number] 06/14/2016 23:47:00 06/15/2016 11:20:00 DIS Outpatient DAVY WANG MD [facility] SDC MISSED SP AB,ACUTE BLOOD LOSS ANEMIA,HYPOKALEMIA [id number] 06/14/2016 11:56:00 06/14/2016 23:59:59 CLS Outpatient DAVY WANG MD [facility] RAD MISSED [id number] 06/09/2016 09:08:00 06/09/2016 09:41:00 DIS Outpatient DAVY WANG MD [facility] PREOP MISSED AB [id number] 05/30/2016 11:05:00 05/30/2016 23:59:59 CLS Outpatient DAVY WANG MD [facility] RAD THREATENED [id number] 05/24/2016 09:50:00 05/24/2016 23:59:59 CLS Outpatient DAVY WANG MD [facility] RAD THREATENDED [id number] 04/08/2015 10:15:00 04/08/2015 23:59:59 CLS Outpatient DEBORAH HURT APRN [facility] RAD HIRSUTISM [id number] 10/25/2017 20:42:00 Document Registration [id number] 02/19/2016 10:05:00 Document Registration [id number] 09/14/2017 10:00:00 09/14/2017 23:59:59 CLS Outpatient BUSTER BREWER APRN [facility] [id number] 03/29/2016 18:05:00 Document Registration
[2017-11-01 14:45] LABS: BASOPHILS # (AUTO) 0.1 10^3/uL (0.0-0.1); BASOPHILS % (AUTO) 1 % (0-10); EOSINOPHILS # (AUTO) 0.1 10^3/uL (0.0-0.3); EOSINOPHILS % (AUTO) 2 % (0-10); HEMATOCRIT 31 % (35-52); HEMOGLOBIN 10.1 G/DL (11.5-16.0); LYMPHOCYTES # (AUTO) 1.6 X 10^3 (1.0-4.0); LYMPHOCYTES % (AUTO) 25 % (12-44); MEAN CORPUSCULAR HEMOGLOBIN 25 PG (25-34); MEAN CORPUSCULAR HGB CONC 33 G/DL (32-36); MEAN CORPUSCULAR VOLUME 76 FL (80-99); MONOCYTES # (AUTO) 0.4 X 10^3 (0.0-1.0); MONOCYTES % (AUTO) 7 % (0-12); NEUTROPHILS # (AUTO) 4.3 X 10^3 (1.8-7.8); NEUTROPHILS % (AUTO) 66 % (42-75); PLATELET COUNT 258 10^3/uL (130-400); RED BLOOD COUNT 4.12 10^6/uL (4.35-5.85); WHITE BLOOD COUNT 6.5 10^3/uL (4.3-11.0)
[2017-11-01 15:03] LABS: ALANINE AMINOTRANSFERASE 23 U/L (0-55); ALKALINE PHOSPHATASE 91 U/L (40-136); BILIRUBIN,TOTAL 0.5 MG/DL (0.1-1.0); BUN/CREATININE RATIO 11; CALCIUM 9.6 MG/DL (8.5-10.1); CARBON DIOXIDE 26 MMOL/L (21-32); CHLORIDE 103 MMOL/L (98-107); CREATININE SERUM 0.63 MG/DL (0.60-1.30); GFR ESTIMATED > 60; GLUCOSE 85 MG/DL (70-105); MAGNESIUM 1.7 MG/DL (1.8-2.4); POTASSIUM 3.7 MMOL/L (3.6-5.0); SODIUM 137 MMOL/L (135-145); TOTAL PROTEIN 7.2 GM/DL (6.4-8.2)
[2017-11-01 15:07] LABS: BILIRUBIN,URINE NEGATIVE (NEGATIVE); CLARITY,URINE CLEAR; GLUCOSE, URINE (UA) NEGATIVE (NEGATIVE); KETONES,URINE NEGATIVE (NEGATIVE); LEUKOCYTE ESTERASE ,URINE 2+ (NEGATIVE); NITRITE,URINE NEGATIVE (NEGATIVE); PH,URINE 7 (5-9); PROTEIN,URINE NEGATIVE (NEGATIVE); UROBILINOGEN,URINE NORMAL (NORMAL)
[2017-11-01 15:18] LABS: BACTERIA,URINE NEGATIVE /HPF; COLOR,URINE STRAW; WBC,URINE 0-2 /HPF
[2017-11-01 15:19] LABS: SQUAMOUS EPITHELIAL CELL,UR 0-2 /HPF
[2017-11-01] MEDS ORDERED: ACETAMINOPHEN 500 MG TAB (TYLENOL) PO STA (15:22)
--- NOTE | 2017-11-01 15:28 | ED Headache ---
General Chief Complaint: Head/Cervical Problems Stated Complaint: HUBER Nursing Triage Note: Pt reports she delivered baby 1 week ago and has had headache unrelieved by tylenol and ibuprofen x2-3 days. Nursing Sepsis Screen: No Definite Risk Source: patient Exam Limitations: no limitations History of Present Illness Date Seen by Provider: Nov 01, 2017 Time Seen by Provider: 14:02 Initial Comments Here with report of right frontal headache that has been going on for the last 2 days. She has tried Tylenol and ibuprofen and that has not helped. She just delivered via 1 week ago and she did have spinal anesthesia. Denies fever or chills. Reports everything else is going okay. SHe does not remember headaches like this before. Timing/Duration: waxing and waning, other (to 3 days) Severity/Quality: moderate, pressure Location: frontal (right-sided) Prior Headaches/Recent Trauma: no recent headache/trauma Modifying Factors: improves with rest Associated Symptoms: No confusion, No fatigue, No fever/chills, No nausea/ vomiting, No nasal drainage, No seizures, No stiff neck, No weakness Allergies and Home Medications Allergies Coded Allergies: No Known Drug Allergies (Unverified , 06/09/16) Home Medications Docusate Sodium 100 Mg Capsule, 100 MG PO BID PRN for CONSTIPATION-1ST LINE Prescribed by: MARIANNE MORRISON on 10/25/172102 Folic Acid 0.8 Mg Capsule, 0.8 MG PO DAILY, (Reported) Hydrocodone Bit/Acetaminophen 1 Tab Tab, 1-2 TAB PO Q4H PRN for PAIN-MODERATE Prescribed by: MARIANNE MORRISON on 10/25/172102 Ibuprofen 600 Mg Tablet, 600 MG PO Q6H Prescribed by: MARIANNE MORRISON on 10/25/172102 Wnl057/FA/Omega3/Dha/Fish Oil 1 Each Tab.chew, 2 EACH PO DAILY, (Reported) Patient Home Medication List Home Medication List Reviewed: Yes Review of Systems Constitutional: see HPI; No chills, No fever Eyes: No Symptoms Reported Ears, Nose, Mouth, Throat: no symptoms reported Respiratory: no symptoms reported Cardiovascular: no symptoms reported Gastrointestinal: No nausea, No vomiting Genitourinary: no symptoms reported Skin: no symptoms reported Psychiatric/Neurological: See HPI, Headache; Denies Paresthesia, Denies Weakness All Other Systems Reviewed Negative Unless Noted: Yes Past Ijczpwu-Ohztvd-Cpxwmz Hx Past Med/Social Hx: Reviewed Nursing Past Med/Soc Hx Patient Social History Alcohol Use: Denies Use Recreational Drug Use: No Smoking Status: Never a Smoker 2nd Hand Smoke Exposure: No Recent Foreign Travel: No Contact w/Someone Who Travel: No Recent Infectious Disease Expo: No Recent Hopitalizations: Yes ( 10/25/17) Physical Abuse: No Sexual Abuse: No Immunizations Up To Date PED Vaccines UTD: Yes Date of Influenza Vaccine: Jan 10, 2016 Seasonal Allergies Seasonal Allergies: Yes (summertime) Past Medical History Surgeries: Yes (d and c) Section Respiratory: No Cardiac: No Hypertension Neurological: No Genitourinary: No Gastrointestinal: No Musculoskeletal: No Endocrine: No HEENT: No Cancer: No Psychosocial: No Nursing Suicide Risk Score: 0 Integumentary: No Blood Disorders: No Family Medical History Reviewed Nursing Family Hx Physical Exam Vital Signs Vital Signs - First Documented 11/01/17 13:59 Temp 98.4 Pulse 79 Resp 18 B/P (MAP) 140/93 (109) Pulse Ox 99 O2 Delivery Room Air Capillary Refill : Less Than 3 Seconds Height, Weight, BMI Height: 5'10.00" Weight: 285lbs. 0.0oz. 129.707809hz; 47.3 BMI Method:Stated General Appearance: WD/WN, no apparent distress HEENT: PERRL/EOMI, pharynx normal Neck: non-tender, full range of motion, supple Cardiovascular: regular rate, rhythm, no murmur Respiratory: lungs clear, normal breath sounds Gastrointestinal: non tender, soft Back: normal inspection, no CVA tenderness, no vertebral tenderness Extremities: non-tender, normal inspection Psychiatric: alert, oriented x 3 Crainal Nerves: normal speech, PERRL Coordination/Gait: normal gait Motor/Sensory: no motor deficit, no sensory deficit Skin: normal color, warm/dry (was better after fluids) Progress/Results/Core Measures Results/Orders Lab Results Laboratory Tests Test 11/01/17 14:23 11/01/17 14:30 Range/Units Urine Color STRAW Urine Clarity CLEAR Urine pH 7 5-9 Urine Specific [place] 1.005 L 1.016-1.022 Urine Protein NEGATIVE NEGATIVE Urine Glucose (UA) NEGATIVE NEGATIVE Urine Ketones NEGATIVE NEGATIVE Urine Nitrite NEGATIVE NEGATIVE Urine Bilirubin NEGATIVE NEGATIVE Urine Urobilinogen NORMAL NORMAL MG/DL Urine Leukocyte Esterase 2+ H NEGATIVE Urine RBC (Auto) 4+ H NEGATIVE Urine RBC 2-5 H /HPF Urine WBC 0-2 /HPF Urine Squamous Epithelial Cells 0-2 /HPF Urine Renal Epithelial Cells NONE /HPF Urine Crystals NONE /LPF Urine Bacteria NEGATIVE /HPF Urine Casts NONE /LPF Urine Mucus NEGATIVE /LPF Urine Culture Indicated NO White Blood Count 6.5 4.3-11.0 10^3/uL Red Blood Count 4.12 L 4.35-5.85 10^6/uL Hemoglobin 10.1 L 11.5-16.0 G/DL Hematocrit 31 L 35-52 % Mean Corpuscular Volume 76 L 80-99 FL Mean Corpuscular Hemoglobin 25 25-34 PG Mean Corpuscular Hemoglobin Concent 33 32-36 G/DL Red Cell Distribution Width 16.0 H 10.0-14.5 % Platelet Count 258 130-400 10^3/uL Mean Platelet Volume 10.0 7.4-10.4 FL Neutrophils (%) (Auto) 66 42-75 % Lymphocytes (%) (Auto) 25 12-44 % Monocytes (%) (Auto) 7 0-12 % Eosinophils (%) (Auto) 2 0-10 % Basophils (%) (Auto) 1 0-10 % Neutrophils # (Auto) 4.3 1.8-7.8 X 10^3 Lymphocytes # (Auto) 1.6 1.0-4.0 X 10^3 Monocytes # (Auto) 0.4 0.0-1.0 X 10^3 Eosinophils # (Auto) 0.1 0.0-0.3 10^3/uL Basophils # (Auto) 0.1 0.0-0.1 10^3/uL Sodium Level 137 135-145 MMOL/L Potassium Level 3.7 3.6-5.0 MMOL/L Chloride Level 103 98-107 MMOL/L Carbon Dioxide Level 26 21-32 MMOL/L Anion Gap 8 5-14 MMOL/L Blood Urea Nitrogen 7 7-18 MG/DL Creatinine 0.63 0.60-1.30 MG/DL Estimat Glomerular Filtration Rate > 60 BUN/Creatinine Ratio 11 Glucose Level 85 70-105 MG/DL Calcium Level 9.6 8.5-10.1 MG/DL Corrected Calcium 9.6 8.5-10.1 MG/DL Magnesium Level 1.7 L 1.8-2.4 MG/DL Total Bilirubin 0.5 0.1-1.0 MG/DL Aspartate Amino Transf (AST/SGOT) 20 5-34 U/L Alanine Aminotransferase (ALT/SGPT) 23 0-55 U/L Alkaline Phosphatase 91 40-136 U/L Total Protein 7.2 6.4-8.2 GM/DL Albumin 4.0 3.2-4.5 GM/DL My Orders Orders - ANGEL LUIS ALMAZAN MD Cbc With Automated Diff (11/01/17 14:05) Comprehensive Metabolic Panel (11/01/17 14:05) Ua Culture If Indicated (11/01/17 14:05) Saline Lock/Iv-Start (11/01/17 14:05) Ns Iv 500 Ml (Sodium Chloride 0.9%) (11/01/17 14:05) Fentanyl Injection (Sublimaze Injection (11/01/17 14:05) Magnesium (11/01/17 14:07) Acetaminophen Tablet (Tylenol Tablet) (11/01/17 15:22) Medications Given in ED Current Medications Medications Dose Ordered Sig/Cleve Route Start Time Stop Time Status Last Admin Dose Admin Sodium Chloride 500 ml @ 0 mls/hr Q0M ONCE IV 11/01/17 14:05 11/01/17 14:07 DC 11/01/17 14:31 500 MLS/HR Vital Signs/I&O 11/01/17 13:59 Temp 98.4 Pulse 79 Resp 18 B/P (MAP) 140/93 (109) Pulse Ox 99 O2 Delivery Room Air Blood Pressure Mean: 109 Progress Progress Note : Progress Note Seen and evaluated. IV, labs and UA ordered. Normal saline 500 mL bolus ordered. 1520: Tylenol 1 g ordered as she had declined the fentanyl earlier due to concerns about the baby and she is breast-feeding. She has accepted the Tylenol now. Monitor patient. 1550: I discussed case with [facility] on-call. We will have them evaluate her for possibility of spinal headache. This may or may not be related to the epidural but we agree that evaluation is reasonable. Continue monitor patient. 1705: Anesthesia has seen the patient. At this time they are not going to pursue blood patch as the risk appeared outweigh benefits. Patient is in full agreement with this and she is appreciative of the evaluation. Overall she is about the same but better because she has the information. I did discuss the case with Dr. Morrison who agrees. Patient reports that she's been taking her pain medicine (hydrocodone) at half dose rarely and she was instructed to try this at the prescribed dose as well as try Afrin nasal spray as this may be sinus congestion related. She will do these as well. Discharged home with return precautions. Patient verbalize understanding instructions and agreement with plan. Departure Impression Primary Impression: Headache Qualified Codes: R51 - Headache Disposition: 01 HOME, SELF-CARE Condition: Stable Departure-Patient Inst. Decision time for Depature: 17:11 Referrals: BUSTER BREWER (PCP) Primary Care Physician [facility] (Family) Primary Care Physician Patient Instructions: Headache, Adult (DC) Add. Discharge Instructions: All discharge instructions reviewed with patient and/or family. Voiced understanding. Take medications as prescribed. Continue to alternate the ibuprofen and Tylenol /acetaminophen. Do not take acetaminophen at the same time as the prescribed pain medicine as they both have acetaminophen in them. Drink plenty of fluids and you may try adding caffeine daily as this can sometimes help headaches as well. All of with your DrKorina in 2-3 days for recheck. Return for worsening, fever, vomiting, weakness, breathing problems or other concerns as needed. You may try Afrin nasal spray or the generic, 12 hour relief, 2 sprays to each nostril twice daily for 3 days only and then stop. Do not use more than 3 days. ANGEL LUIS ALMAZAN MD Nov 01, 2017 15:28
[2017-11-01 17:17] VITALS: BP 140/94
== END 2017-11-01 17:20 | disposition home or self-care (01) ==
LOC: EDUNIT# 12:57 → ER 12:59
DX: O99.89 Other specified diseases and conditions complicating pregnancy, childbirth and the puerperium (principal); R51 Headache; O16.5 Unspecified maternal hypertension, complicating the puerperium; I10 Essential (primary) hypertension; Z87.59 Personal history of other complications of pregnancy, childbirth and the puerperium
CPT/HCPCS: 36415; 80053; 81000; 83735; 85025; 96360

== ENCOUNTER 2020-02-07 08:38 | Outpatient (CLI) | payer MEDICAID, OTHER ==
[~2020-02-07] VITALS: Ht 177.8 cm; Wt 148.6 kg
--- NOTE | 2020-02-07 08:30 | NUR ---
DIDI ALONSO presented to unit via ambulation from ED, accompanied by self, with c/o DECREASED MOVEMENT. DIDI ALONSO weighed, gowned, voided, and to bed. EFHM and TOCO applied, VS taken. DIDI ALONSO oriented to bed controls, call light, TV, heat, and A/C controls.
[~2020-02-07 08:38] MED LIST changes: +ASPI-1238 PO; -ASPI-983 PO; +FERR-84 PO
[2020-02-07 08:45] VITALS: BP 126/61
--- NOTE | 2020-02-07 09:32 | NUR ---
Dr. Morrison called and notified of pt arrival and c/o decreased movement in twin at 36 weeks. notified of reactive NSTs on both fetus, no ctx noted, pt now feeling both fetus' move. Orders rec'd for dismissal.
--- NOTE | 2020-02-07 09:40 | NUR ---
Discharge instructions explained to pt with copy provided to pt. Pt verbalizes understanding of instructions and signs to verify. Pt ambulates off unit to private vehicle. No s/s of distress noted.
--- NOTE | 2020-02-10 08:29 | Physician Query-Final Dx ---
LINDSEY LEONARD 02/10/20 0829: Clinic Account Progress/Dx Physician Query: Please give diagnosis Please include # weeks gestation Date of Service Feb 07, 2020 at 08:38 MARIANNE GRAHAM DO 02/10/20 1018: Clinic Account Progress/Dx DIAGNOSIS: Diagnosis 36 week IUP Twin gestation Decreased movement LINDSEY LEONARD Feb 10, 2020 08:29 MARIANNE GRAHAM DO Feb 10, 2020 10:18
== END 2020-02-07 09:40 ==
LOC: WSo 08:38 → LDRP 08:40 → WSo 09:40
PROVIDERS: ATTEND Obstetrics & Gynecology
DX: O36.8130 Decreased fetal movements, third trimester, not applicable or unspecified (principal); Z3A.36 36 weeks gestation of pregnancy
CPT/HCPCS: 99213

== ENCOUNTER 2020-02-14 05:46 | Outpatient (RCR) | payer MEDICAID, OTHER ==
[~2020-02-14] VITALS: Ht 177.8 cm; Wt 147.3 kg
[2020-02-18] MEDS ORDERED: ACHD5005 PO (12:48)
[2020-02-18] MEDS ORDERED: IBUP-844 PO (12:48)
[2020-02-18] MEDS ORDERED: DCS100C PO (12:48)
== END 2020-02-14 09:36 | disposition home or self-care (01) ==
LOC: PREOP 05:46
PROVIDERS: ATTEND Obstetrics & Gynecology
DX: Z01.818 Encounter for other preprocedural examination (principal); Z20.828 Contact with and (suspected) exposure to other viral communicable diseases
CPT/HCPCS: 87635

== ENCOUNTER 2020-02-14 07:30 | Inpatient (IN) | payer MEDICAID ==
[~2020-02-14] VITALS: Ht 176.5 cm; Wt 148.0 kg
[2020-02-18] VITALS (9 sets, daily range): BP systolic 100–146; BP diastolic 50–81
--- NOTE | 2020-02-18 10:00 | NUR ---
DIDI ALONSO presented to unit via ambulation from ED, accompanied by S.O., for rcs with TWIN . DIDI ALONSO weighed, gowned, voided, and to bed. EFHM and TOCO applied, VS taken. DIDI ALONSO oriented to bed controls, call light, TV, heat, and A/C controls.
[2020-02-18] MEDS ORDERED: CITRIC ACID/SOB CIT (BICITRA) 30 ML UDC PO ONE (10:15)
[2020-02-18] MEDS ORDERED: LACTATED RINGERS 1,000 ML IV PRN (10:15)
[2020-02-18] MEDS ORDERED: FAMOTIDINE 20MG/2ML IV (PEPCID) IV ONE (10:15)
[2020-02-18] MEDS ORDERED: CATHETER FLUSH 10 ML SYR IV PRN (10:15)
[2020-02-18] MEDS ORDERED: METOCLOPRAMIDE INJ 10 MG/2 ML (REGLAN) IV ONE (10:15)
[2020-02-18] MEDS ORDERED: ceFAZolin 2 GM IV Premixed 50 ML IV ONE (10:15)
[2020-02-18] MEDS: LACTATED RINGERS 1,000 ML IV PRN ×3 (10:35→13:15)
[2020-02-18 10:46] LABS: BASOPHILS % (AUTO) 0 % (0-10); MEAN PLATELET VOLUME 11.2 fL (9.0-12.2)
[2020-02-18 10:48] LABS: EOSINOPHILS % (AUTO) 0 % (0-10); HEMATOCRIT 34 % (35-52); HEMOGLOBIN 11.6 g/dL (11.5-16.0); LYMPHOCYTES # (AUTO) 1.4 10^3/uL (1.0-4.0); LYMPHOCYTES % (AUTO) 20 % (12-44); MEAN CORPUSCULAR HEMOGLOBIN 30 pg (25-34); MEAN CORPUSCULAR HGB CONC 34 g/dL (32-36); MEAN CORPUSCULAR VOLUME 88 fL (80-99); MONOCYTES # (AUTO) 0.5 10^3/uL (0.0-1.0); MONOCYTES % (AUTO) 7 % (0-12); NEUTROPHILS # (AUTO) 5.2 10^3/uL (1.8-7.8); NEUTROPHILS % (AUTO) 72 % (42-75); PLATELET COUNT 145 10^3/uL (130-400); WHITE BLOOD COUNT 7.2 10^3/uL (4.3-11.0)
[2020-02-18] MEDS ORDERED: OXYTOCIN PRE-MIX DRIP 1,000 ML IV ONE (12:28)
[2020-02-18] MEDS ORDERED: fentaNYL INJECTION 100 MCG/2 ML AMP ONE (12:28)
[2020-02-18] MEDS ORDERED: OXYTOCIN PRE-MIX DRIP 0 ML IV ONE (12:28)
[2020-02-18] MEDS ORDERED: MEASLES,MUMPS,RUBELLA 1 EA INJ SC SCH (12:45)
[2020-02-18] MEDS ORDERED: ONDANSETRON 4 MG/2 ML (SDV) Z0FRAN IVP PRN ×2 (12:45→14:00)
[2020-02-18] MEDS ORDERED: TETANUS,DIPTH,PERTUSS P/F (BOOSTRIX) 0.5 ML VIAL IM SCH (12:45)
--- NOTE | 2020-02-18 12:45 | History & Physical-OB ---
OB - Chief Complaint & HPI Date/Time Date of Admission: Date of Admission: Feb 18, 2020 at 09:48 Date seen by a Provider: Feb 18, 2020 Time Seen by a Provider: 12:35 Chief Complaint/History OB-Reason for Admission/Chief: Section Hx : 2 Hx Para: 1 Expected Date of Delivery: Feb 18, 2020 Gestational Age in Weeks: 37 Gestational Age in Days: 4 Indication for : desires repeat Admission Nurse Assessment Rev: Yes History of Labs A pos Antibody neg RI RPR NR HBsAg NR HIV NR GC neg GBS neg Allergies and Home Medications Allergies Coded Allergies: No Known Drug Allergies (Unverified , 06/09/16) Home Medications Ferrous Sulfate 325 Mg Tablet, 325 MG PO HS, (Reported) Folic Acid 0.8 Mg Capsule, 0.8 MG PO HS, (Reported) Oix477/FA/Omega3/Dha/Fish Oil 1 Each Tab.chew, 2 EACH PO HS, (Reported) Patient Home Medication List Home Medication List Reviewed: Yes OB - History Hx of Present Care: Yes Ultrasounds: Abnormal US findings (Di/Di Twin ) Obstetrical Complications: None Medical Complications: None Delivery History Hx Blood Disorders: No Adverse Rxn to Tranfusion: No Patient Past Medical History n/a Social History/Family History Recent Infectious Disease Expo: No Alcohol Use: Denies Use Recreational Drug Use: No 2nd Hand Smoke Exposure: No Immunizations Hepatitis A: Yes Hepatitis B: Yes Date of Influenza Vaccine: Jan 23, 2020 OB - Admission Exam Physical Exam HEENT: NCAT Heart: Rhythm Normal Lungs: Clear Abdomen: Gravid Extremities: Normal Reflexes: Normal Heart Rate: 130's (x 2 ) Decelerations: No Decelerations Short Term Variability: Present Letterset Press Set Up Operator Variability: Average (6-25) Contractions on Admission: 6-10 Minutes Apart Intensity: Mild Labs Laboratory Tests Test 02/18/20 10:30 Range/Units White Blood Count 7.2 4.3-11.0 10^3/uL Red Blood Count 3.93 3.80-5.11 10^6/uL Hemoglobin 11.6 11.5-16.0 g/dL Hematocrit 34 L 35-52 % Mean Corpuscular Volume 88 80-99 fL Mean Corpuscular Hemoglobin 30 25-34 pg Mean Corpuscular Hemoglobin Concent 34 32-36 g/dL Red Cell Distribution Width 14.4 10.0-14.5 % Platelet Count 145 130-400 10^3/uL Mean Platelet Volume 11.2 9.0-12.2 fL Immature Granulocyte % (Auto) 1 % Neutrophils (%) (Auto) 72 42-75 % Lymphocytes (%) (Auto) 20 12-44 % Monocytes (%) (Auto) 7 0-12 % Eosinophils (%) (Auto) 0 0-10 % Basophils (%) (Auto) 0 0-10 % Neutrophils # (Auto) 5.2 1.8-7.8 10^3/uL Lymphocytes # (Auto) 1.4 1.0-4.0 10^3/uL Monocytes # (Auto) 0.5 0.0-1.0 10^3/uL Eosinophils # (Auto) 0.0 0.0-0.3 10^3/uL Basophils # (Auto) 0.0 0.0-0.1 10^3/uL Immature Granulocyte # (Auto) 0.1 0.0-0.1 10^3/uL OB - Assessment/Plan/Diagnosis Assessment Assessment: section Admission Dx 29 yo @ 37.4 weeks Di-Di Twin Previous Admission Status: Inpatient Order (span 2 midnights) Reason for Inpatient Admission: Repeat Plan Plan: Section MARIANNE GRAHAM DO Feb 18, 2020 12:45
[2020-02-18] MEDS ORDERED: ACHD5005 PO (12:48)
[2020-02-18] MEDS ORDERED: DCS100C PO (12:48)
[2020-02-18] MEDS ORDERED: IBUP-844 PO (12:48)
--- NOTE | 2020-02-18 12:48 | Discharge Inst-Women's Service ---
Discharge Inst-Women's Serv Depart Medication/Instructions New, Converted or Re-Newed RX: RX on Chart Final Diagnosis POD 2 RLTCS Problems Reviewed?: Yes Consults/Follow Up Additional Follow Up: Yes Orders/Referrals Dr. Morrison in 7-10 days and in 6 weeks Activity Activity: Activity as Tolerated Driving Instructions: No Driving for 1 Week NO SMOKING: NO SMOKING Nothing Inside Vagina: No Douching, No Snowslip, No Tampons Diet Discharge Diet: No Restrictions Symptoms to Report to : Bleeding Excessive, Pain Increased, Fever Over 101 Degrees F, Vaginal Bleeding Increase, Questions/Concerns For Any Problems or Questions: Contact Your Physician Skin/Wound Care Infection Signs and Symptoms: Increased Redness, Foul Odor of Wound, Increased Drainage, Skin Itchy or Has a Rash, Increased Swelling, Temperature Above 101 F Operative Area Clean and Dry: Keep Incision Clean/Dry Stitches/Andrew/Dermabond: Dermabond, Care of Stitches Bathing Instructions: MARIANNE Washington DO Feb 18, 2020 12:48
[2020-02-18] MEDS ORDERED: KETOROLAC 30 MG/ML VIAL ONE (13:18)
[2020-02-18] MEDS ORDERED: ONDANSETRON 4 MG/2 ML (SDV) Z0FRAN ONE (13:19)
[2020-02-18] MEDS ORDERED: PHENYLEPHRINE 100 MCG/ML 10 ML (ANESTHESIA) SYR ONE (13:21)
[2020-02-18] MEDS ORDERED: HYDROmorphone 2 MG/ML VIAL (DILAUDID) IV ONE (14:00)
[2020-02-18] MEDS: KETOROLAC 30 MG/ML VIAL IV SCH ×2 (14:00→20:12)
[2020-02-18] MEDS: OXYTOCIN PRE-MIX DRIP 500 ML IV SCH ×2 (15:11→16:50)
--- NOTE | 2020-02-18 15:15 | NUR ---
Pt transferred to room 308 via bed accompanied by this RN, Mannie Connell, and . Pt oriented to room and call light. packet explained. IV pitocin to pump, SCD's on and activated. VS taken. Pt set up to eat. Denies needs or concerns at this time.
--- NOTE | 2020-02-18 15:40 | NUR ---
Report to Tuyet Rich RN
[2020-02-18] MEDS: HYDROcodone/APAP 5 MG/325 MG (LORTAB) TAB PO PRN ×2 (15:51→20:12)
[2020-02-18 16:36] LABS: SMEAR SCAN COMMENT YES
--- NOTE | 2020-02-18 16:40 | NUR ---
deanne-care offered. v-pad and panties in place. requesting to see Twin B in nursery prior to transfer to [facility]. pt transferred to nursery via w/c with this RN, FOB, and Twin A @ side.
--- NOTE | 2020-02-18 19:18 | NUR ---
report given to ZOHAIB Flores.
--- NOTE | 2020-02-18 19:56 | OPERATIVE REPORT ---
DATE OF SERVICE: PREOPERATIVE DIAGNOSES: 1. A 29-year-old G2, P1 at 37 weeks and 4 days gestation. 2. Twin , diamniotic dichorionic. 3. Previous section. POSTOPERATIVE DIAGNOSES: 1. A 29-year-old G2, P1 at 37 weeks and 4 days gestation. 2. Twin , diamniotic dichorionic. 3. Previous section. PROCEDURE: Repeat low transverse section. SURGEON: Toyn Morrison DO DOWEL STICKER OPERATOR: Nicolasa Atkins DNP, who was necessary for manipulation and retraction throughout the procedure. ANESTHESIA: Spinal. ESTIMATED BLOOD LOSS: 800 mL. URINE OUTPUT: 150 mL clear at the end of procedure. FLUIDS: 1600 mL lactated Ringer's solution. FINDINGS: Two female infants both found in the complete breech presentation. Infant fetus A, Apgars of 7 and 8, weighing 7 pounds 14 ounces. Infant B, Apgars of 6 and 7 with weight of 7 pounds 4 ounces. Grossly normal appearing uterus, bilateral fallopian tubes and ovaries. SPECIMEN SENT: Placenta. INDICATIONS FOR PROCEDURE: This 29-year-old female is a patient who had sought care with a finding of dichorionic diamniotic twins throughout her and it was uncomplicated. She proceeded to 37 weeks and had a prior and wished to proceed with repeat . Risks of the procedure were discussed with the patient in detail. After all of her questions were answered in the preoperative area, consent was obtained, the patient was taken to the operating room. OPERATIVE REPORT IN DETAIL: Once in the operating room, spinal anesthesia was found to be adequate, placed in supine position with leftward tilt, prepped and draped in normal sterile fashion where a timeout was performed and anesthesia was tested. I then made a Pfannenstiel skin incision to the previously existing scar using knife and carried down to underlying fascia using Bovie cautery. The fascial incision was extended laterally using Bovie cautery. The superior aspect of fascial incision was then grasped with Naseem clamps, tented up and dissected off the underlying rectus muscles. The inferior aspect of the fascial incision was then grasped with Naseem clamps, tented up and dissected off the underlying rectus muscles. The rectus muscles were then dissected down the midline using sharp dissection exposing the peritoneum, which I entered bluntly and extended using blunt traction. I then identified the lower uterine segment after placing Geoffrey ring retractor within the peritoneal incision, which offers excellent lateral sidewall retraction. The lower uterine segment was found to be thinned out and make a low transverse incision to the vesicouterine peritoneum and bluntly dissect this away, creating a bladder flap. I then proceeded with myotomy until membranes were visualized, at which point I extended the uterine incision laterally and superiorly using bandage scissors. Amniotomy was performed to the first sac and the was found in complete breech presentation. The buttocks were elevated up to the incision where they delivered through the incision followed by the legs. The was delivered up to the upper torso and the arms were delivered by sweeping them across the chest after the was placed face downward. I then delivered the 's head by elevating the body up and flexing the infant's head through the incision. The cord was duly clamped and cut and was handed off to Dr. Lawrence for further attendance. Cord blood was collected. I then performed amniotomy on the second twin, which was also found in the complete breech presentation. The buttocks were elevated up to the incision where the feet and legs are followed through the delivery after the upper torso. The arms were then delivered by sweeping them across the chest and then the was elevated and the 's head is delivered through the incision by flexion. The nares and oropharynx were bulb suctioned. The cord was duly clamped and cut and handed off to Dr. Sotomayor, who was present for delivery. Cord blood was collected from each cord and sent separately, 3-vessel cord with intact placenta was delivered spontaneously thereafter. IV Pitocin was initiated to facilitate uterine contraction. Uterine fundus becomes firmer with bimanual massage. The uterus was then exteriorized and cleared of all endometrial clots and debris. I then proceeded with closing the uterine incision using 0 Vicryl suture in a running locked fashion. A second layer of imbricating 0 Monocryl was placed. Excellent hemostasis was noted after doing this. I then placed the uterus back in the pelvis and copiously irrigated the pelvis using normal saline. Once again, there was no active bleeding noted from any of my dissection planes. I placed Interceed antiadhesive over my low transverse incision and then proceeded with closing the peritoneum after removing the Geoffrey ring retractor. The peritoneum was reapproximated using 3-0 Vicryl suture in running fashion. The rectus muscle reapproximated using 3-0 Vicryl suture in interrupted fashion. The fascia was reapproximated using 0 Vicryl suture in running fashion. Subcutaneous tissue was reapproximated using 3-0 plain interrupted subcutaneous stitch and skin reapproximated using 4-0 Monocryl running subcuticular. Dermabond was applied to incision and sterile dressing with adhesive white tape. The patient tolerated the procedure well and sent to recovery in stable condition. Lap and sponge counts were correct at the end of the procedure. Instrument count was correct as well. Two grams of Ancef was given preoperatively for infection prophylaxis. Job ID: [id number] DocumentID: [id number] Dictated Date: 02/18/2020 13:52:58 Hotel And Dining Room Cashier Date: 02/18/2020 19:55:56 Dictated By: TONY MORRISON DO
[2020-02-18] MEDS: DOCUSATE SODIUM 100 MG (COLACE) CAP PO SCH (20:13)
--- NOTE | 2020-02-18 20:30 | NUR ---
Pt up to void with no difficulty, deanne care education given and pt resting in chair.
[2020-02-18] MEDS: CATHETER FLUSH 10 ML SYR IV SCH (22:18)
--- NOTE | 2020-02-18 22:39 | NUR ---
Pt moving around and IV accidently removed. dressing to area.
[2020-02-19 00:17] VITALS: BP 121/64
[2020-02-19] MEDS ORDERED: IBUPROFEN 600 MG (MOTRIN) TAB PO ONE ×2 (02:21→08:52)
[2020-02-19] MEDS: HYDROcodone/APAP 5 MG/325 MG (LORTAB) TAB PO PRN ×4 (02:23→20:04)
[2020-02-19] MEDS: IBUPROFEN 600 MG (MOTRIN) TAB PO SCH ×4 (02:24→20:05)
[2020-02-19 04:00] VITALS: BP 116/60
[2020-02-19 05:35] LABS: BASOPHILS % (AUTO) 0 % (0-10); HEMOGLOBIN 10.6 g/dL (11.5-16.0); MONOCYTES % (AUTO) 9 % (0-12)
[2020-02-19 05:37] LABS: EOSINOPHILS # (AUTO) 0.1 10^3/uL (0.0-0.3); EOSINOPHILS % (AUTO) 2 % (0-10); HEMATOCRIT 32 % (35-52); LYMPHOCYTES # (AUTO) 1.8 10^3/uL (1.0-4.0); LYMPHOCYTES % (AUTO) 23 % (12-44); MEAN CORPUSCULAR HEMOGLOBIN 30 pg (25-34); MEAN CORPUSCULAR HGB CONC 34 g/dL (32-36); MEAN CORPUSCULAR VOLUME 88 fL (80-99); MEAN PLATELET VOLUME 10.8 fL (9.0-12.2); MONOCYTES # (AUTO) 0.7 10^3/uL (0.0-1.0); NEUTROPHILS # (AUTO) 4.9 10^3/uL (1.8-7.8); NEUTROPHILS % (AUTO) 65 % (42-75); PLATELET COUNT 114 10^3/uL (130-400); WHITE BLOOD COUNT 7.5 10^3/uL (4.3-11.0)
[2020-02-19] MEDS: CATHETER FLUSH 10 ML SYR IV SCH ×2 (06:53→18:47)
[2020-02-19] MEDS: KETOROLAC 30 MG/ML VIAL IV SCH (06:54)
--- NOTE | 2020-02-19 07:45 | Progress Note ---
Standard Progress Note Progress Notes/Assess & Plan Date Seen by a Provider: Feb 19, 2020 Time Seen by a Provider: 07:42 Progress/Assessment & Plan This is a patient of Dr. GRAHAM who is out of town and I am rounding in his absence. This patient is without complaint. She is ambulating, voiding, tolerating oral intake well and has good pain control. She reports that her other twin is doing well at [facility] Vital Signs Date Time Temp Pulse Resp B/P (MAP) Pulse Ox O2 Delivery O2 Flow Rate FiO2 02/19/20 04:00 36.0 70 18 116/60 (78) 96 Room Air 02/19/20 00:17 36.0 74 18 121/64 (83) 96 Room Air 02/18/20 20:00 36.5 61 18 146/73 (97) 98 Room Air 02/18/20 16:41 Room Air 02/18/20 15:15 36.3 67 18 127/60 (82) 97 Room Air 02/18/20 14:49 36.9 20 115/54 (74) 97 Room Air 02/18/20 14:49 Room Air 02/18/20 14:35 Room Air 02/18/20 14:35 36.3 18 123/50 (74) 97 Room Air 02/18/20 14:20 36.2 12 105/81 (89) 98 Room Air 02/18/20 14:20 Room Air 02/18/20 14:05 Room Air 02/18/20 14:05 36.0 24 100/72 (81) 98 Room Air 02/18/20 13:50 Room Air 02/18/20 13:50 36.0 20 121/52 (75) 99 Room Air 02/18/20 11:55 90 18 128/59 (82) Room Air 02/18/20 10:10 37.5 98 18 97 Room Air 02/18/20 10:10 37.5 98 18 126/70 (88) 97 Room Air I & O 02/19/20 07:00 Intake Total 2050 ml Output Total 515 ml Balance 1535 ml Vital signs are stable. Patient is afebrile. The abdomen is benign. Extremities show no clubbing or cyanosis. There is no Homans' sign. Assessment and plan postoperative day #1 status post delivery for twin. Patient is doing well and will have routine convalescent care today. Plan is for consideration of discharge home tomorrow EDEL DIAZ MD Feb 19, 2020 07:45
--- NOTE | 2020-02-19 08:01 | Anesthesia-Regional Post-Op ---
Regional Patient Condition Mental Status: Alert, Oriented x3 Circulation: Same as Pre-Op Headache: Absent Sensation: Full Recovery Motor Block: Absent Post Op Complications Complications None Follow Up Care/Instructions Patient Instructions None needed. Anesthesia/Patient Condition Patient is doing well, no complaints, stable vital signs, no apparent adverse anesthesia problems. No complications reported per nursing. MANASA HARPER CRNA Feb 19, 2020 08:01
--- NOTE | 2020-02-19 09:00 | NUR ---
pt breast feeding infant. will notify RN for vs and assessment.
[2020-02-19] MEDS: DOCUSATE SODIUM 100 MG (COLACE) CAP PO SCH ×2 (09:02→20:04)
[2020-02-19 10:00] VITALS: BP 132/82
--- NOTE | 2020-02-19 10:00 | NUR ---
infant remains in room with parents. sleeping with unlabored respirations. initial shift assessment completed, see interventions for further.
--- NOTE | 2020-02-19 10:45 | NUR ---
up to shower. bed linens changed.
[2020-02-19 14:20] VITALS: BP 128/79
--- NOTE | 2020-02-19 14:30 | NUR ---
Rx's called into [facility] for delivery to hospital prior to pt's planned dismissal tomorrow.
--- NOTE | 2020-02-19 19:16 | NUR ---
report given to ZOHAIB Mancuso
[2020-02-19 20:15] VITALS: BP 129/76
[2020-02-20] MEDS: IBUPROFEN 600 MG (MOTRIN) TAB PO SCH ×2 (01:36→08:17)
[2020-02-20] MEDS: HYDROcodone/APAP 5 MG/325 MG (LORTAB) TAB PO PRN ×2 (01:36→08:17)
[2020-02-20 01:40] VITALS: BP 122/61
[2020-02-20] MEDS: KETOROLAC 30 MG/ML VIAL IV SCH (03:11)
[2020-02-20 08:00] VITALS: BP 131/76
--- NOTE | 2020-02-20 08:00 | NUR ---
A.M. ASSESSMENT COMPLETED. VSS. CARING FOR IN ROOM. GOOD INTERACTION NOTED.
[2020-02-20] MEDS: DOCUSATE SODIUM 100 MG (COLACE) CAP PO SCH (08:17)
--- NOTE | 2020-02-20 08:29 | Postpartum Progress Note ---
Post Op Post-operative Day #2 s/p RLTCS twins One baby here and one transferred to [place]. Babies doing well. transferred twin had pneumothoraces. Subjective: Patient is without complaints. Ambulating, voiding after corral removed. Tolerating a regular diet without nausea or vomiting. Normal lochia. Pain is well controlled with oral pain medications. Passing flatus. breast feeding. Objective: Laboratory Tests Test 02/18/20 10:30 02/19/20 05:27 Range/Units White Blood Count 7.2 7.5 4.3-11.0 10^3/uL Red Blood Count 3.93 3.57 L 3.80-5.11 10^6/uL Hemoglobin 11.6 10.6 L 11.5-16.0 g/dL Hematocrit 34 L 32 L 35-52 % Mean Corpuscular Volume 88 88 80-99 fL Mean Corpuscular Hemoglobin 30 30 25-34 pg Mean Corpuscular Hemoglobin Concent 34 34 32-36 g/dL Red Cell Distribution Width 14.4 14.4 10.0-14.5 % Platelet Count 145 114 L 130-400 10^3/uL Mean Platelet Volume 11.2 10.8 9.0-12.2 fL Immature Granulocyte % (Auto) 1 1 % Neutrophils (%) (Auto) 72 65 42-75 % Lymphocytes (%) (Auto) 20 23 12-44 % Monocytes (%) (Auto) 7 9 0-12 % Eosinophils (%) (Auto) 0 2 0-10 % Basophils (%) (Auto) 0 0 0-10 % Neutrophils # (Auto) 5.2 4.9 1.8-7.8 10^3/uL Lymphocytes # (Auto) 1.4 1.8 1.0-4.0 10^3/uL Monocytes # (Auto) 0.5 0.7 0.0-1.0 10^3/uL Eosinophils # (Auto) 0.0 0.1 0.0-0.3 10^3/uL Basophils # (Auto) 0.0 0.0 0.0-0.1 10^3/uL Immature Granulocyte # (Auto) 0.1 0.1 0.0-0.1 10^3/uL Smear Scan YES 02/20/20 01:40 Temp 36.7 Pulse 84 Resp 18 B/P (MAP) 122/61 (81) O2 Delivery Room Air Physical Exam: General - Alert and oriented, no apparent distress Abdomen - Soft, appropriately tender to palpation, non-distended, fundus firm at umbilicus Incision - clean, dry and intact; no erythema or induration, no drainage Extremities - no edema, negative Servando's bilaterally Assessment: 1. post-operative day # 2, status post RLTCS. Recovering well, hemodynamically stable Acute blood loss anemia Plan: Routine post-operative care. Encourage breast feeding. Encourage ambulation. VTE prophylaxis: SCDs. Ferrous sulfate supplementation. Plan for discharge today or to parent room Vitals - Labs Vital Signs - I&O Vital Signs Date Time Temp Pulse Resp B/P (MAP) Pulse Ox O2 Delivery O2 Flow Rate FiO2 02/20/20 01:40 36.7 84 18 122/61 (81) Room Air 02/19/20 20:15 36.3 73 18 129/76 (93) 98 Room Air 02/19/20 14:20 36.3 76 18 128/79 (95) 98 Room Air 02/19/20 10:00 36.3 82 18 132/82 (99) 97 Room Air JOSEY CRYSTAL DO Feb 20, 2020 08:29
--- NOTE | 2020-02-20 11:55 | NUR ---
DISCHARGE INSTRUCTIONS REVIEWED WITH COPY TO PT. STATES UNDERSTANDING OF ALL INSTRUCTIONS AND NEED TO F/U SCHEDULED AND NEEDED.
[2020-02-20 14:00] VITALS: BP 131/76
--- NOTE | 2020-02-20 14:00 | NUR ---
DISMISSED FROM [facility] VIA W/C WITH IN STABLE CONDITION TO FAMILY CAR ACC BY SPOUSE AND ANNITA MURRAY RN.
== END 2020-02-20 14:00 | disposition home or self-care (01) | DRG 787 ==
LOC: LDRP 02-18 09:48
PROVIDERS: ADMIT Obstetrics & Gynecology; ATTEND Obstetrics & Gynecology
PROC: 10D00Z1 Extraction of Products of Conception, Low, Open Approach (ICD-10-PCS; principal; 2020-02-18 12:43)
DX: O34.211 Maternal care for low transverse scar from previous cesarean delivery (principal); D62 Acute posthemorrhagic anemia; O64.1XX0 Obstructed labor due to breech presentation, not applicable or unspecified; O30.043 Twin pregnancy, dichorionic/diamniotic, third trimester; O90.81 Anemia of the puerperium; Z3A.37 37 weeks gestation of pregnancy; Z37.2 Twins, both liveborn
CPT/HCPCS: 36415; 85025; 86850; 86900; 86901; 94664

== ENCOUNTER → 2020-11-23 | Outpatient (CLI) | payer MEDICAID, OTHER ==
[~2020-11-23] MED LIST changes: +DCS100C PO
== END ==
LOC: CARD 15:00
PROVIDERS: ATTEND Nurse Practitioner Family
DX: I10 Essential (primary) hypertension (principal)
CPT/HCPCS: 93306

== ENCOUNTER → 2022-09-05 | Outpatient (CLI) | payer OTHER ==
[~2022-09-05] MED LIST changes: -DCS100C PO; +DOCU-239 PO
--- NOTE | 2022-09-05 16:27 | Diagnostic Imaging Report ---
INDICATION: Palpable lump in the right breast. Sonographic interrogation of the area of lump in the outer right breast was performed. No solid or cystic masses identified. No sonographic abnormality is detected. IMPRESSION: No sonographic abnormality is detected. ACR BI-RADS Category 1: Negative. Result letter will be mailed to the patient. Note: At least 10% of breast cancer is not imaged by mammography. BI-RADS Category 1 Dictated by: Dictated on workstation # [id number]
--- NOTE | 2022-09-06 14:54 | Diagnostic Imaging Report ---
INDICATION: Palpable lump right breast. Unilateral right 2-D and 3-D diagnostic mammography was performed with CAD. A marker was placed in the area of palpable abnormality over the right breast. Scattered fibroglandular densities right breast are noted. There is a benign-appearing nodule in the outer right breast, likely interparenchymal lymph node. A benign-appearing nodule on the axillary tail on the left is also noted. No spiculated mass or malignant-appearing microcalcifications are seen. Axillae are unremarkable. IMPRESSION: No mammographic features suspicious for malignancy are identified. Even so, directed sonographic interrogation of the area of palpable abnormality in the right breast is recommended and will be performed today. Dictated by: Dictated on workstation # [id number]
== END ==
LOC: RAD 13:46
PROVIDERS: ATTEND Obstetrics & Gynecology
DX: N63.10 Unspecified lump in the right breast, unspecified quadrant (principal)
CPT/HCPCS: 76642; 77065; G0279